=== PATIENT | male | born 1985 | race Caucasian/White ===

== ENCOUNTER 2024-02-25 18:04 | Inpatient (IN) | payer OTHER, SELFPAY ==
[2024-02-25 18:55] VITALS: BP 140/97; PULSE 115; RESP 20; TEMP 36.6; O2SAT 96
[2024-02-25 18:57] VITALS: BMI 64.6
[2024-02-25] MEDS: Albuterol Sulfate 90 MCG 8 GM INHALER 2 PUFF INHALE (19:12)
--- NOTE | 2024-02-25 19:51 | PC.ADMIT ---
Raji Montaño arrived ambulance/stretcher from [facility] at 1835. Prior to arrival a 12b was signed/dated in [facility] [place] [place] [facility]. Raji (he/him) is oriented x4. He is pleasant and cooperated with safety/skin check. His skin check was unremarkable except this nurse couldnt assess fully under his abdominal panus as he was too winded to help hold it up completely and/or lie back for assessment. (This information was passed on to receiving RN for [id number] Krueger paged and ordered leigh MDI which was coming from pharmacy. He was given MDI at 1915. He presented to [facility] for evaluation of altered mental status. He was kicked out of the [facility] and had nowhere to go and decided to lay down next to a convenience store. EMS was called. He was found with slurred speech and pinpoint pupils. At the time he reported only taking hydroxyzine and his prescribed suboxone. Tox screen was positive for cocaine, benzodiazepams and amphetamines, No ETOH. He reported that he is going through some tough things and then he started to cry. His dad is recently diagnosed with stage 4 liver cancer and he is predicted to not make it to new [place]. Raji has passive SI, no plan currently and states he can seek staff if this changes. Raji has bilateral nonpitting edema and is malodorous likely due to his body habitus. He was oriented to room and routine, placed dinner order and he was settled in his room. Hospitalist consult order placed. He is being monitored with 15 minute safety checks.
[2024-02-25] MEDS: lamoTRIgine 100 MG TABLET 200 MG PO (23:51)
[2024-02-25] MEDS: Buprenorphine/Naloxone 8/2 mg FILM 1 FILM SUBLINGUAL (23:51)
[2024-02-25] MEDS: Gabapentin 400 MG CAPSULE 800 MG PO (23:52)
[2024-02-25] MEDS: QUEtiapine Fumarate 300 MG TABLET PO (23:53)
[2024-02-25 23:55] VITALS: BP 140/97
[2024-02-25] MEDS: Prazosin HCL 5 MG CAPSULE 10 MG PO (23:55)
[2024-02-26 07:51] VITALS: BP 146/80; PULSE 89; RESP 16; TEMP 36.4; O2SAT 94
[2024-02-26 08:43] LABS: Estimated Average Glucose 105 mg/dL; Hemoglobin A1c % 5.3 % (<6.0)
[2024-02-26 08:57] LABS: Cholesterol 131 mg/dL (<200); HDL Cholesterol 38 mg/dL (>40); LDL Cholesterol Calculated 77 mg/dL (<100); Triglycerides 81 mg/dL (<150)
[2024-02-26 09:12] LABS: Free T4 (Free Thyroxine) 0.95 ng/dL (0.71-1.85); Thyroid Stimulating Hormone 2.67 uIU/mL (0.32-4.0)
[2024-02-26] MEDS: Omeprazole 40 MG CAPSULE.DR PO ×2 (09:19→17:23)
[2024-02-26] MEDS: Buprenorphine/Naloxone 8/2 mg FILM 1 FILM BUCCAL ×3 (09:20→20:59)
[2024-02-26 09:25] LABS: Folate 10.7 ng/mL (> or = 4.0); Vitamin B12 558 pg/mL (200-900)
[2024-02-26] MEDS: Gabapentin 600 MG TABLET 800 MG PO ×3 (10:24→20:51)
[2024-02-26 12:26] VITALS: BMI 64.6
[2024-02-26] MEDS: Dextroamphetamine/Amphetamine XR 10 MG CAP.ER.24H 20 MG PO (14:03)
[2024-02-26] MEDS: Amphetamine Mixed Salts 10 MG TABLET PO (14:04)
[2024-02-26] MEDS: buPROPion HCl XL 300 MG TAB.ER.24H PO (14:04)
[2024-02-26] MEDS: DULoxetine HCl 30 MG CAPSULE.DR PO ×2 (14:05→20:53)
[2024-02-26] MEDS: hydrOXYzine HCL 50 MG TABLET 100 MG PO ×2 (14:52→20:57)
[2024-02-26] MEDS: Ibuprofen 600 MG TABLET PO ×2 (14:52→20:53)
--- NOTE | 2024-02-26 15:50 | HO.PM.IMCN ---
History of Present Illness Data of Consult Service Date: 02/26/24 Primary Care Provider: Unknown Physician HPI Reason for consult: Admission H&P Pt is a 38-year-old male with a PMH significant for mild intermittent asthma, hepatitis C, peripheral neuropathy, GERD chronic lower back and leg pain, chronic lower leg edema, polysubstance use disorder on Suboxone, obesity class 3, and mood disorder? who is admitted to M5 psychiatry unit for increasing depression with SI. Patient initially presented to the ED for evaluation of possible altered mental status. Patient had been kicked out of the home program and had no route to go so apparently laid down on the ground next to convenience store. EMS noted him to have pinpoint pupils and slurred speech. Medical consult for admission H&P. ?Patient complains of chronic lower back and bilateral lower leg pain. States pain in his right knee is especially painful, seemingly worse than prior. States there is a ?crunching? sound when he walks. Denies chest pain/pressure, palpitations. No shortness a breath. Denies fever, chills, nausea, vomiting, abdominal pain. No headache, acute vision changes, lightheadedness, or dizziness. Reports has not yet been treated for hepatitis-C. Has a history of IVDU, last used in May. Labs reviewed, grossly unremarkable. Vital signs stable. Tox screen at [facility] positive for cocaine, benzos, and amphetamine. Review of Systems Review of Systems: Chronic lower back and leg pain Worsening right knee pain [facility] Medical History (Updated 02/26/24 @ 19:04 by ERIN Pittman) GERD (gastroesophageal reflux disease) Mild intermittent asthma Obesity, Class III, BMI 40-49.9 (morbid obesity) Chronic lower back pain Hepatitis C Polysubstance use disorder ADHD Bipolar disorder Social History Household Members: None Housing: Homeless Do you presently have visiting nurse or other home services: No Patient Tobacco Use Status: Former Tobacco user Tobacco use type: Cigarette Years Smoked: 17 years Smoked in Last 30 Days: No e-Cigarette/Vaping Use: Currently Using Frequency of e-Cigarette/Vaping Use: daily Patient Interested in Nicotine Replacement: Yes Patient Given Instructions on How to Stop Smoking: Yes Date Education Initiated: 02/25/24 Second Hand Smoke Exposure: Yes Use of substances other than those prescribed or required for medical reasons: Yes Substance Use Type: Crack/Cocaine and Opiates Last Used Substance: Unknown Last Used Substance Other:: Aug 2022 Currently Displaying Signs/Symptoms of Drug Intoxication Withdrawal: No Any prior treatment program specific to substance use: Yes (Subaxone) Have you been hit, kicked, punched, or otherwise hurt by someone within the past year? If so, by whom?: No Do you feel safe in your current relationship?: Yes Is there a partner from a previous relationship who is making you feel unsafe now?: No Are you made to feel afraid or neglected: No Advance Directives: No Advance Directives Information Provided: Yes Do you have thoughts of harming others: None Do you have a plan to hurt others: No Plan Recently lost weight without trying: No Poor oral hygiene: No Meds Allergies Allergy/AdvReac Type Severity Reaction Status Date / Time haloperidol [From Haldol] Allergy Unknown Verified 02/25/24 19:01 trazodone AdvReac restless Verified 02/26/24 17:14 leg syndrome Active Medications: Current Medications Acetaminophen (Acetaminophen 325 Mg Tablet) 650 mg PO Q6H PRN PRN Reason: Headache/Pain Mild Scale (1-3) Al Hydroxide/Mg Hydroxide (Magnesium Hydrox/Alum Hydrox 30 Ml Oral.Susp) 30 ml PO Q6H PRN PRN Reason: Heartburn/Nausea Albuterol Sulfate (Albuterol Sulfate 90 Mcg 8 Gm Inhaler) 2 puff INHALE RQ4H PRN PRN Reason: Shortness of Breath Last Admin: 02/25/24 19:12 Dose: 2 puff Amphetamine/Dextroamphetamine (Dextroamphetamine/Amphetamine Xr 10 Mg Cap.Er.24h) 20 mg PO DAILY [facility] Last Admin: 02/26/24 14:03 Dose: 20 mg Amphetamine/Dextroamphetamine (Amphetamine Mixed Salts 10 Mg Tablet) 10 mg PO DAILY [facility] Last Admin: 02/26/24 14:04 Dose: 10 mg Buprenorphine/Naloxone (Buprenorphine/Naloxone 8/2 Mg Film) 1 film BUCCAL TID [facility] Last Admin: 02/26/24 14:55 Dose: 1 film Bupropion HCl (Bupropion Hcl Xl 300 Mg Tab.Er.24h) 300 mg PO DAILY [facility] Last Admin: 02/26/24 14:04 Dose: 300 mg Clonidine HCl (Clonidine Hcl 0.2 Mg Tablet) 0.2 mg PO TID PRN; Protocol PRN Reason: anxiety Cyclobenzaprine HCl (Cyclobenzaprine Hcl 10 Mg Tablet) 10 mg PO TID PRN PRN Reason: Muscle Spasm Duloxetine HCl (Duloxetine Hcl 30 Mg Capsule.Dr) 30 mg PO BID [facility] Last Admin: 02/26/24 14:05 Dose: 30 mg Gabapentin (Gabapentin 600 Mg Tablet) 800 mg PO TID [facility] Last Admin: 02/26/24 15:03 Dose: 800 mg Hydroxyzine HCl (Hydroxyzine Hcl 50 Mg Tablet) 100 mg PO TID [facility] Last Admin: 02/26/24 14:52 Dose: 100 mg Ibuprofen (Ibuprofen 600 Mg Tablet) 600 mg PO TID [facility] Last Admin: 02/26/24 14:52 Dose: 600 mg Lamotrigine (Lamotrigine 100 Mg Tablet) 200 mg PO BEDTIME [facility] Last Admin: 02/25/24 23:51 Dose: 200 mg Magnesium Hydroxide (Milk Of Magnesia 30 Ml Oral.Susp) 30 ml PO DAILY PRN PRN Reason: Constipation Nicotine (Nicotine 21 Mg Patch.Td24) 21 mg TRANSDERMA DAILY PRN PRN Reason: Nicotine Cravings Nicotine Polacrilex (Nicotine Polacrilex 2 Mg Gum) 4 mg BUCCAL Q2H PRN PRN Reason: Nicotine Cravings Omeprazole (Omeprazole 40 Mg Capsule.Dr) 40 mg PO BID@0630,1630 [facility] Prazosin HCl (Prazosin Hcl 5 Mg Capsule) 10 mg PO BEDTIME [facility]; Protocol Last Admin: 02/25/24 23:55 Dose: 10 mg Quetiapine Fumarate (Quetiapine Fumarate 300 Mg Tablet) 300 mg PO BEDTIME [facility] Last Admin: 02/25/24 23:53 Dose: 300 mg Trazodone HCl (Trazodone Hcl 50 Mg Tablet) 50 mg PO BEDTIME MRX1 PRN PRN Reason: Insomnia Home Medications ?Medication ?Instructions ?Recorded ?Confirmed ?Last Taken ?Type buprenorphine 8 mg-naloxone 2 mg 1 film buccal TID 02/25/24 02/25/24 Unknown History sublingual film cyclobenzaprine 10 mg tablet 10 mg PO BID 02/25/24 02/25/24 Unknown History cyclobenzaprine 10 mg tablet 10 mg PO TID PRN Muscle Spasm 02/25/24 02/25/24 Unknown History gabapentin 800 mg tablet 800 mg PO TID 02/25/24 02/25/24 Unknown History hydroxyzine HCl 50 mg tablet 100 mg PO TID PRN Anxiety 02/25/24 02/25/24 Unknown History lamotrigine 100 mg tablet 200 mg PO BEDTIME 02/25/24 02/25/24 Unknown History omeprazole 40 mg capsule,delayed 40 mg PO DAILY 02/25/24 02/25/24 Unknown History release prazosin 5 mg capsule 10 mg PO BEDTIME 02/25/24 02/25/24 Unknown History quetiapine 300 mg tablet 300 mg PO BEDTIME 02/25/24 02/25/24 Unknown History Physical Exam Vital Signs and Narrative: Vital Signs: Last Vital Signs Temp 97.5 F 02/26/24 07:51 Pulse 89 02/26/24 07:51 Resp 16 02/26/24 07:51 BP 146/80 H 02/26/24 07:51 Pulse Ox 94 02/26/24 07:51 O2 Del Method Room Air 02/26/24 07:51 BMI result Body Mass Index 64.6 General: AOx3, no acute distress Resp: Mild expiratory wheezing CVS: S1, S2, RRR GI: +BS, NT, no distention, obese Skin: Warm, dry Neuro: Cranial nerves II-XII grossly intact bilaterally. Motor grossly intact bilaterally Extremities: Non-pitting edema. Chronic venous stasis dermatitis changes bilaterally. Psych: Appropriate affect Results Labs Labs: Laboratory Results - last 24 hr 02/26/24 08:25 Estimat Average Glucose 105 Hemoglobin A1c % 5.3 Magnesium 2.0 Triglycerides 81 Cholesterol 131 LDL Cholesterol, Calc 77 HDL Cholesterol 38 L Vitamin B12 558 Folate 10.7 TSH 2.67 Free T4 0.95 Assessment and Plan (1) Medical clearance for psychiatric admission: Status: Acute Plan Pt is a 38-year-old male with a PMH significant for mild intermittent asthma, hepatitis C, peripheral neuropathy, GERD chronic lower back and leg pain, chronic lower leg edema, polysubstance use disorder on Suboxone, obesity class 3, and mood disorder? who is admitted to M5 psychiatry unit for increasing depression with SI. Patient initially presented to the ED for evaluation of possible altered mental status. Patient had been kicked out of the home program and had no route to go so apparently laid down on the ground next to convenience store. EMS noted him to have pinpoint pupils and slurred speech. Medical consult for admission H&P. Mood disorder Plan as per Psychiatry Polysubstance use disorder History of IVDU, last injected in May Tox screen positive for cocaine, benzos, and amphetamines Continue Suboxone Plan as per Psychiatry Chronic lower back and knee pain Continue cyclobenzaprine, ibuprofen, and Tylenol Should follow up outpatient with Orthopedics for worsening right knee pain Hepatitis-C Currently untreated Follow up outpatient GERD Continue omeprazole Obesity class III Encourage weight loss Thank you for allowing us to participate in the care of this patient. Signing off at this time. Please re-consult if any acute complaints or issues arise.
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
[2024-02-26 20:00] VITALS: BP 143/88; PULSE 102; RESP 16; TEMP 36.1; O2SAT 96
[2024-02-26] MEDS: lamoTRIgine 100 MG TABLET 200 MG PO (20:49)
[2024-02-26 20:52] VITALS: BP 143/88
[2024-02-26] MEDS: Prazosin HCL 5 MG CAPSULE 10 MG PO (20:52)
[2024-02-26] MEDS: QUEtiapine Fumarate 300 MG TABLET PO (21:36)
[2024-02-27] MEDS: Acetaminophen 325 MG TABLET 650 MG PO ×3 (04:24→23:31)
[2024-02-27] MEDS: Cyclobenzaprine HCl 10 MG TABLET PO ×3 (04:24→23:31)
[2024-02-27] MEDS: Omeprazole 40 MG CAPSULE.DR PO ×2 (06:08→15:54)
[2024-02-27 08:00] VITALS: BP 155/91; PULSE 86; RESP 20; TEMP 36.4; O2SAT 95
[2024-02-27] MEDS: buPROPion HCl XL 300 MG TAB.ER.24H PO (09:05)
[2024-02-27] MEDS: Dextroamphetamine/Amphetamine XR 10 MG CAP.ER.24H 20 MG PO (09:05)
[2024-02-27] MEDS: Buprenorphine/Naloxone 8/2 mg FILM 1 FILM BUCCAL ×3 (09:05→22:54)
[2024-02-27] MEDS: Gabapentin 600 MG TABLET 800 MG PO ×2 (09:05→15:25)
[2024-02-27] MEDS: DULoxetine HCl 30 MG CAPSULE.DR PO ×2 (09:05→22:48)
[2024-02-27] MEDS: Ibuprofen 600 MG TABLET PO ×3 (09:06→22:50)
[2024-02-27] MEDS: hydrOXYzine HCL 50 MG TABLET 100 MG PO ×3 (09:06→22:47)
--- NOTE | 2024-02-27 11:49 | PC.NURSE ---
Pt met with the [place] [employer], [employer] and this verse writer off the unit to fill out the paperwork needed for the sex offender registry. Paperwork completed without incident.
[2024-02-27] MEDS: Amphetamine Mixed Salts 10 MG TABLET PO (15:53)
--- NOTE | 2024-02-27 16:33 | P.PNPSI_ITS ---
Subjective Subjective Date of Service: 02/27/24 Reason For Visit: F329, F14.90, F10.99 Subjective Notes: Section 12B Healthcare Proxy: No Guardianship: No Medical Problems Affecting Mental Status: No Interim History: Pt requested to register with HPD today his offender status which he was able to do with team support. I want to do things right, for myself and get on track. I hope I will not be judged here. Discussed [employer] trial- he is willing to look at information. Settling in milieu, This is different from some of the other hospitals I have been admitted to. Discussed OP referral for R knee injuries. Medication Compliance: Yes Side effects from medications: No Attending Groups: Yes Review of Systems Acute medical concerns: No Medical Review of Systems: unchanged Review of Systems Review of Systems knee pain Mental Status Exam Mental Status Exam Patient Appearance: Fatigued Patient Orientation: Person, Place, Time and Situation Level of Consciousness: Alert Patient Behavior: Appropriate, Talkative, Cooperative and Good Eye Contact Mood Description: Depressed Affect Description: Flat Patient Cognition Impaired: No Ability to Follow Directions: Good Speech Pattern: Spontaneous Speech Memory Description: Intact Hallucinations: Auditory Delusions: Paranoid Ideation Perceptual Disturbances: Depersonalization and Derealization Thought Process: Rumination Thought Content: positive for Perseveration, positive for Suicidal Ideation and positive for Homicidal Ideation Depressive Symptoms: Increased Irritability, Hopelessness, Unhappiness and Low Self Esteem Abnormal Motor Activity Signs and Symptoms: Restlessness Judgement: Fair Diagnostics Vital Signs (24Hr): Vital Signs - 24 hr 02/26/24 20:00 02/26/24 20:52 02/27/24 08:00 Temperature 96.9 F 97.5 F Pulse Rate 102 H 86 Respiratory Rate 16 20 Blood Pressure 143/88 H 143/88 H 155/91 H Pulse Oximetry 96 95 Oxygen Delivery Method Room Air Room Air BMI result Body Mass Index 64.6 Labs Labs: Laboratory Results - last 48 hr 02/26/24 08:25 Estimat Average Glucose 105 Hemoglobin A1c % 5.3 Magnesium 2.0 Triglycerides 81 Cholesterol 131 LDL Cholesterol, Calc 77 HDL Cholesterol 38 L Vitamin B12 558 Folate 10.7 TSH 2.67 Free T4 0.95 Medications Medications Current Medications Acetaminophen (Acetaminophen 325 Mg Tablet) 650 mg PO Q6H PRN PRN Reason: Headache/Pain Mild Scale (1-3) Last Admin: 02/27/24 12:03 Dose: 650 mg Al Hydroxide/Mg Hydroxide (Magnesium Hydrox/Alum Hydrox 30 Ml Oral.Susp) 30 ml PO Q6H PRN PRN Reason: Heartburn/Nausea Albuterol Sulfate (Albuterol Sulfate 90 Mcg 8 Gm Inhaler) 2 puff INHALE RQ4H PRN PRN Reason: Shortness of Breath Last Admin: 02/25/24 19:12 Dose: 2 puff Amphetamine/Dextroamphetamine (Dextroamphetamine/Amphetamine Xr 10 Mg Cap.Er.24h) 20 mg PO DAILY [facility] Last Admin: 02/27/24 09:05 Dose: 20 mg Amphetamine/Dextroamphetamine (Amphetamine Mixed Salts 10 Mg Tablet) 10 mg PO DAILY@1500 [facility] Last Admin: 02/27/24 15:53 Dose: 10 mg Buprenorphine/Naloxone (Buprenorphine/Naloxone 8/2 Mg Film) 1 film BUCCAL TID [facility] Last Admin: 02/27/24 15:25 Dose: 1 film Bupropion HCl (Bupropion Hcl Xl 300 Mg Tab.Er.24h) 300 mg PO DAILY [facility] Last Admin: 02/27/24 09:05 Dose: 300 mg Clonidine HCl (Clonidine Hcl 0.2 Mg Tablet) 0.2 mg PO TID PRN; Protocol PRN Reason: anxiety Cyclobenzaprine HCl (Cyclobenzaprine Hcl 10 Mg Tablet) 10 mg PO TID PRN PRN Reason: Muscle Spasm Last Admin: 02/27/24 12:03 Dose: 10 mg Duloxetine HCl (Duloxetine Hcl 30 Mg Capsule.Dr) 30 mg PO BID [facility] Last Admin: 02/27/24 09:05 Dose: 30 mg Gabapentin (Gabapentin 600 Mg Tablet) 800 mg PO TID [facility] Last Admin: 02/27/24 15:25 Dose: 800 mg Hydroxyzine HCl (Hydroxyzine Hcl 50 Mg Tablet) 100 mg PO TID [facility] Last Admin: 02/27/24 15:26 Dose: 100 mg Ibuprofen (Ibuprofen 600 Mg Tablet) 600 mg PO TID [facility] Last Admin: 02/27/24 15:27 Dose: 600 mg Lamotrigine (Lamotrigine 100 Mg Tablet) 200 mg PO BEDTIME [facility] Last Admin: 02/26/24 20:49 Dose: 200 mg Magnesium Hydroxide (Milk Of Magnesia 30 Ml Oral.Susp) 30 ml PO DAILY PRN PRN Reason: Constipation Nicotine (Nicotine 21 Mg Patch.Td24) 21 mg TRANSDERMA DAILY PRN PRN Reason: Nicotine Cravings Nicotine Polacrilex (Nicotine Polacrilex 2 Mg Gum) 4 mg BUCCAL Q2H PRN PRN Reason: Nicotine Cravings Omeprazole (Omeprazole 40 Mg Capsule.Dr) 40 mg PO BID@0630,1630 [facility] Last Admin: 02/27/24 15:54 Dose: 40 mg Prazosin HCl (Prazosin Hcl 5 Mg Capsule) 10 mg PO BEDTIME [facility]; Protocol Last Admin: 02/26/24 20:52 Dose: 10 mg Quetiapine Fumarate (Quetiapine Fumarate 300 Mg Tablet) 300 mg PO BEDTIME [facility] Last Admin: 02/26/24 21:36 Dose: 300 mg Allergies Allergies Allergy/AdvReac Type Severity Reaction Status Date / Time haloperidol [From Haldol] Allergy Unknown Verified 02/25/24 19:01 trazodone AdvReac restless Verified 02/26/24 17:14 leg syndrome Assessment & Plan Assessment & Plan (1) Polysubstance use disorder: Status: Acute Code(s): F19.90 - Other psychoactive substance use, unspecified, uncomplicated (2) Bipolar disorder: Status: Acute Code(s): F31.9 - Bipolar disorder, unspecified (3) ADHD: Status: Acute Code(s): F90.9 - Attention-deficit hyperactivity disorder, unspecified type Plan 02/27/24 Continue tx Given information on Vraylar for review. Reason for continued inpatient stay Substantial Risk for: rapid decompensation Time Spent With Patient Time: Total time managing care of this patient today ____ minutes.
[2024-02-27 20:00] VITALS: BP 130/58; PULSE 96; TEMP 36.5; O2SAT 96
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
[2024-02-27] MEDS: QUEtiapine Fumarate 300 MG TABLET PO (22:48)
[2024-02-27] MEDS: Prazosin HCL 5 MG CAPSULE 10 MG PO (22:49)
[2024-02-27] MEDS: lamoTRIgine 100 MG TABLET 200 MG PO (22:51)
[2024-02-27] MEDS: Gabapentin 400 MG CAPSULE 800 MG PO (22:58)
[2024-02-27] MEDS: Albuterol Sulfate 90 MCG 8 GM INHALER 2 PUFF INHALE (23:58)
[2024-02-28] MEDS: Cyclobenzaprine HCl 10 MG TABLET PO ×3 (04:07→22:56)
[2024-02-28] MEDS: Albuterol Sulfate 90 MCG 8 GM INHALER 2 PUFF INHALE (04:08)
[2024-02-28] MEDS: Omeprazole 40 MG CAPSULE.DR PO ×2 (07:27→16:47)
[2024-02-28 08:00] VITALS: BP 173/89; PULSE 87; RESP 18; TEMP 36.9; O2SAT 96
[2024-02-28 08:04] VITALS: BP 175/89
[2024-02-28] MEDS: hydrOXYzine HCL 50 MG TABLET 100 MG PO ×3 (08:04→21:53)
[2024-02-28] MEDS: cloNIDine HCL 0.2 MG TABLET PO ×2 (08:04→21:52)
[2024-02-28] MEDS: buPROPion HCl XL 300 MG TAB.ER.24H PO (09:13)
[2024-02-28] MEDS: Gabapentin 400 MG CAPSULE 800 MG PO ×3 (09:13→21:52)
[2024-02-28] MEDS: DULoxetine HCl 30 MG CAPSULE.DR PO ×2 (09:13→21:52)
[2024-02-28] MEDS: Dextroamphetamine/Amphetamine XR 10 MG CAP.ER.24H 20 MG PO (09:14)
[2024-02-28] MEDS: Buprenorphine/Naloxone 8/2 mg FILM 1 FILM BUCCAL ×3 (09:14→21:54)
[2024-02-28] MEDS: Ibuprofen 600 MG TABLET PO ×3 (09:14→21:52)
[2024-02-28] MEDS: Amphetamine Mixed Salts 10 MG TABLET PO (13:57)
[2024-02-28] MEDS: Acetaminophen 325 MG TABLET 650 MG PO ×2 (16:46→22:56)
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
[2024-02-28 20:00] VITALS: BP 116/78; PULSE 110; RESP 18; TEMP 36.4; O2SAT 95
[2024-02-28] MEDS: lamoTRIgine 100 MG TABLET 200 MG PO (21:52)
[2024-02-28] MEDS: QUEtiapine Fumarate 300 MG TABLET PO (21:52)
[2024-02-28] MEDS: Prazosin HCL 5 MG CAPSULE 10 MG PO (21:53)
[2024-02-29] MEDS: Albuterol Sulfate 90 MCG 8 GM INHALER 2 PUFF INHALE ×3 (00:12→23:20)
[2024-02-29] MEDS: Omeprazole 40 MG CAPSULE.DR PO ×2 (07:22→17:52)
[2024-02-29] MEDS: Dextroamphetamine/Amphetamine XR 10 MG CAP.ER.24H 20 MG PO (08:15)
[2024-02-29] MEDS: hydrOXYzine HCL 50 MG TABLET 100 MG PO ×3 (08:15→21:24)
[2024-02-29] MEDS: buPROPion HCl XL 300 MG TAB.ER.24H PO (08:16)
[2024-02-29] MEDS: Gabapentin 400 MG CAPSULE 800 MG PO ×3 (08:16→21:25)
[2024-02-29] MEDS: DULoxetine HCl 30 MG CAPSULE.DR PO ×2 (08:16→21:24)
[2024-02-29] MEDS: Ibuprofen 600 MG TABLET PO ×3 (08:16→21:26)
[2024-02-29 08:18] VITALS: BP 144/93; PULSE 94; RESP 18; TEMP 36.4; O2SAT 99
[2024-02-29] MEDS: Buprenorphine/Naloxone 8/2 mg FILM 1 FILM BUCCAL ×3 (08:33→21:24)
[2024-02-29] MEDS: Cyclobenzaprine HCl 10 MG TABLET PO ×3 (10:46→23:18)
[2024-02-29] MEDS: cloNIDine HCL 0.2 MG TABLET PO ×3 (10:46→23:17)
[2024-02-29] MEDS: Acetaminophen 325 MG TABLET 650 MG PO ×3 (10:46→23:17)
[2024-02-29 10:47] VITALS: BP 168/89; PULSE 108
[2024-02-29] MEDS: Amphetamine Mixed Salts 10 MG TABLET PO (14:06)
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
[2024-02-29 17:54] VITALS: BP 177/98; PULSE 95
[2024-02-29 20:00] VITALS: BP 130/61; PULSE 94; RESP 16; TEMP 36.4; O2SAT 95
[2024-02-29] MEDS: QUEtiapine Fumarate 300 MG TABLET PO (21:24)
[2024-02-29 21:25] VITALS: BP 130/61
[2024-02-29] MEDS: Prazosin HCL 5 MG CAPSULE 10 MG PO (21:25)
[2024-02-29] MEDS: lamoTRIgine 100 MG TABLET 200 MG PO (21:26)
[2024-02-29 23:17] VITALS: BP 139/65
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
[2024-03-01 10:40] VITALS: BP 129/76; PULSE 90; RESP 18; TEMP 36.3; O2SAT 94
[2024-03-01] MEDS: hydrOXYzine HCL 50 MG TABLET 100 MG PO ×3 (10:48→21:44)
[2024-03-01] MEDS: Buprenorphine/Naloxone 8/2 mg FILM 1 FILM BUCCAL ×3 (10:48→21:41)
[2024-03-01] MEDS: DULoxetine HCl 30 MG CAPSULE.DR PO ×2 (10:49→21:44)
[2024-03-01] MEDS: Dextroamphetamine/Amphetamine XR 10 MG CAP.ER.24H 20 MG PO (10:49)
[2024-03-01] MEDS: buPROPion HCl XL 300 MG TAB.ER.24H PO (10:50)
[2024-03-01] MEDS: Omeprazole 40 MG CAPSULE.DR PO ×2 (10:50→16:24)
[2024-03-01] MEDS: Ibuprofen 600 MG TABLET PO ×3 (10:50→21:43)
[2024-03-01] MEDS: Gabapentin 400 MG CAPSULE 800 MG PO ×3 (10:50→21:41)
[2024-03-01 14:00] VITALS: BP 141/82
[2024-03-01] MEDS: Acetaminophen 325 MG TABLET 650 MG PO ×2 (14:00→21:42)
[2024-03-01] MEDS: cloNIDine HCL 0.2 MG TABLET PO ×2 (14:00→21:42)
[2024-03-01] MEDS: Amphetamine Mixed Salts 10 MG TABLET PO (15:01)
[2024-03-01] MEDS: QUEtiapine Fumarate 50 MG TABLET PO (16:24)
--- NOTE | 2024-03-01 17:42 | PM.EVENT ---
Event Note Date of Service: 03/01/24 Event Note: 38 year old morbidly obese male with bmi >66 admitted to adult psychiatry with consult placed to hospitalist service for evaluation of bilateral lower extremity edema and erythema. The patient reports chronic edema and redness in the BLE. Does feel this has worsened since admission. Reports he was previously on torsemide 80mg am and 40mg pm but given multiple relocations, the prescription was lost. I have verified that he did receive this rx at one time (previously noted on [facility] records). Most recent labs reveal normal renal function and electrolyte levels. He denies pain the calves bilaterally. Noticed a weeping ulcer posterior LLE this morning with serous drainage. On exam, distal half of bilateral lower legs with thickened erytehmatous skin bilaterally with minimal warmth. He has several subcentimeter superficial venous ulcers bilaterally with some serous weeping but no purulent drainage. There is 2+ pitting edema bilaterally. He is afebrile. He has a chronic intermittent mild tachycardia at baseline. See photos below A/P: At this time the patient is presenting with bilateral lower extremity venous stasis dermatitis with venous ulcers. At this time there is no evidence of infection, however patient is advised that he is at risk for infection with the venous stasis and open ulcerations. He is wearing slippers and he is advised to have socks or shoes on at all time when ambulating the halls. The ulcerations are clean without purulent drainage. At this time, will request leather parts matcher to evaluate ulcerations and recommend dressings. Recommend simple bandage for the time being. No indication for antibiotics at this time. Recommend ammonium lactate to the BLE BID and compression stockings. Recommend leg elevation. Pt refuses formal low sodium diet but states he will be mindful of sodium intake. Given pt was previously on torsemide will resume but at lower dose for now, recommend 40mg daily. Check BMP in 3 days. This should help the edema and reduce risk of venous ulceration forming and there by decrease risk of infection. However, again conservative measures with compression, elevation, and low sodium diet should be pursued. Will get baseline cbc as well. *Of note the patient also mentioned chronic right knee pain with crunching. No recent injury. Offered naproxen at patient request but he states he will continue with tylenol and ibuprofen. Outpt follow up recommended Ultimately weight loss efforts should be pursued which will likely help both of these chronic issues. Please monitor legs daily and notify hospitalist for any worsening erythema, warmth, purulent drainage, fevers, chills or change in clinical presentation. Signing off at this time. Time Spent With Patient Time: Total time managing care of this patient today ____ minutes.
[2024-03-01 19:32] LABS: MANUAL DIFF FLAG NO
[2024-03-01 19:34] LABS: Basophils Absolute Auto 0.1 X10*3/uL (0.0-0.2); Eosinophils Absolute Auto 0.3 X10*3/uL (0.0-0.4); Eosinophils Percent Auto 5.1 % (0-4); Hemoglobin 12.6 g/dl (14.0-18.0); Imm Gran Abs Auto 0.01 X10*3/uL (0.00-0.03); Imm Gran Pct Auto 0.2 % (0.0-0.4); Lymphocytes Absolute Auto 2.9 X10*3/uL (1.2-4.9); Lymphocytes Percent Auto 45.7 % (20-40); Mean Corpuscular HGB Conc 32.3 g/dl (31.0-36.0); Mean Corpuscular Volume 83.5 fL (80.0-98.0); Mean Platelet Volume 10.9 fL (9.4-12.4); Monocytes Absolute Auto 0.8 X10*3/uL (0.1-1.2); Monocytes Percent Auto 13.4 % (2-11); Neutrophils Absolute Auto 2.2 x10*3/uL (2.0-8.3); Neutrophils Percent Auto 34.6 % (45-73); Platelet Count 172 X10*3/uL (160-400); Red Blood Count 4.67 X10*6/uL (4.60-5.80); Red Cell Distribution Width 15.2 % (11.0-16.0); White Blood Count 6.3 X10*3/uL (4.8-10.8)
[2024-03-01 20:00] VITALS: BP 136/74; PULSE 88; RESP 18; TEMP 36.6; O2SAT 97
[2024-03-01] MEDS: Prazosin HCL 5 MG CAPSULE 10 MG PO (21:40)
[2024-03-01] MEDS: Cyclobenzaprine HCl 10 MG TABLET PO (21:41)
[2024-03-01] MEDS: QUEtiapine Fumarate 300 MG TABLET PO (21:41)
[2024-03-01] MEDS: lamoTRIgine 100 MG TABLET 200 MG PO (21:43)
[2024-03-02] MEDS: Cyclobenzaprine HCl 10 MG TABLET PO (04:41)
[2024-03-02] MEDS: cloNIDine HCL 0.2 MG TABLET PO (04:41)
[2024-03-02] MEDS: QUEtiapine Fumarate 50 MG TABLET PO (04:41)
[2024-03-02] MEDS: Omeprazole 40 MG CAPSULE.DR PO (06:50)
[2024-03-02 08:00] VITALS: BP 152/75; PULSE 71; TEMP 36.4; O2SAT 96
[2024-03-02] MEDS: Buprenorphine/Naloxone 8/2 mg FILM 1 FILM BUCCAL (09:30)
[2024-03-02 09:38] VITALS: BP 152/75
[2024-03-02] MEDS: Dextroamphetamine/Amphetamine XR 10 MG CAP.ER.24H 20 MG PO (09:38)
[2024-03-02] MEDS: buPROPion HCl XL 300 MG TAB.ER.24H PO (09:38)
[2024-03-02] MEDS: Torsemide 20 MG TABLET 40 MG PO (09:38)
[2024-03-02] MEDS: Ibuprofen 600 MG TABLET PO (09:39)
[2024-03-02] MEDS: Gabapentin 400 MG CAPSULE 800 MG PO (09:39)
[2024-03-02] MEDS: hydrOXYzine HCL 50 MG TABLET 100 MG PO (09:39)
[2024-03-02] MEDS: DULoxetine HCl 30 MG CAPSULE.DR PO (09:40)
--- NOTE | 2024-03-02 17:11 | P.DS_ITS ---
DS: Providers Provider Date of Service: 03/02/24 Date of admission: 02/25/24 18:04 Date of discharge: 03/02/24 Primary care physician: Unknown Physician Admitting clinician: Kristin Cabrera Attending physician on admission: Garrett Harris Consults: 02/25/24 19:24 Consult to Hospitalist Routine Comment: Consulting Provider: Hospitalist Reason For Exam: patient admit from [facility] 03/01/24 16:19 Consult to Hospitalist Routine Comment: Consulting Provider: Hospitalist Reason For Exam: bilat edema and erythema 03/01/24 17:36 Consult to Wound Care Routine Reason for consultation: venous ulcers ble Attending physician on discharge: Garrett Harris Discharging clinician: Kristin Cabrera DS: Diagnosis Discharge Diagnosis (1) Polysubstance use disorder: Status: Acute (2) Bipolar disorder: Status: Acute (3) ADHD: Status: Acute DS: Medications Discharge Medications Home Medications: Home Medications ?Medication ?Instructions ?Recorded ?Confirmed buprenorphine 8 mg-naloxone 2 mg 1 film buccal TID 02/25/24 02/25/24 sublingual film cyclobenzaprine 10 mg tablet 10 mg PO TID PRN Muscle Spasm 02/25/24 02/25/24 gabapentin 800 mg tablet 800 mg PO TID 02/25/24 02/25/24 hydroxyzine HCl 50 mg tablet 100 mg PO TID PRN Anxiety 02/25/24 02/25/24 lamotrigine 100 mg tablet 200 mg PO BEDTIME 02/25/24 02/25/24 prazosin 5 mg capsule 10 mg PO BEDTIME 02/25/24 02/25/24 quetiapine 300 mg tablet 300 mg PO BEDTIME 02/25/24 02/25/24 Previous Rx's ?Medication ?Instructions ?Recorded albuterol sulfate 90 mcg/actuation 2 puff inhalation RQ4H PRN 03/02/24 aerosol inhaler (Ventolin HFA) Shortness Of Breath #0 grams ammonium lactate 12 % lotion 1 appl topical BID #0 grams 03/02/24 bupropion HCl 300 mg 24 hr tablet, 300 mg PO DAILY #0 tabs 03/02/24 extended release clonidine HCl 0.2 mg tablet 0.2 mg PO TID PRN anxiety #0 tabs 03/02/24 dextroamphetamine-amphetamine 10 10 mg PO DAILY@1500 #0 tabs 03/02/24 mg tablet dextroamphetamine-amphetamine ER 20 mg (2 x 10 mg) PO DAILY #0 caps 03/02/24 10 mg 24hr capsule,extend release (Adderall XR) duloxetine 30 mg capsule,delayed 30 mg PO BID #0 caps 03/02/24 release gabapentin 400 mg capsule 800 mg (2 x 400 mg) PO TID #0 caps 03/02/24 melatonin 3 mg tablet 6 mg (2 x 3 mg) PO BEDTIME #0 tabs 03/02/24 omeprazole 40 mg capsule,delayed 40 mg PO BID@0630,1630 #0 caps 03/02/24 release quetiapine 50 mg tablet 50 mg PO Q6H PRN severe 03/02/24 anxiety/agitation #0 tabs torsemide 20 mg tablet 40 mg PO DAILY #0 tabs 03/02/24 Mental Status Exam Mental Status Exam Patient Appearance: Fatigued Patient Orientation: Person, Place, Time and Situation Level of Consciousness: Alert Patient Behavior: Appropriate, Talkative, Cooperative and Good Eye Contact Mood Description: Depressed Affect Description: Flat Patient Cognition Impaired: No Ability to Follow Directions: Good Speech Pattern: Spontaneous Speech Memory Description: Intact Data Data Completed and Pending Completed studies during hospitalization [Text1]: 02/26/24 03/01/24 08:25 19:25 WBC 6.3 RBC 4.67 Hgb 12.6 L Hct 39.0 L MCV 83.5 MCH 27.0 MCHC 32.3 RDW 15.2 Plt Count 172 MPV 10.9 Immature Gran % (Auto) 0.2 Neut % (Auto) 34.6 L Lymph % (Auto) 45.7 H Gonzales % (Auto) 13.4 H Eos % (Auto) 5.1 H Baso % (Auto) 1.0 Lymph # (Auto) 2.9 Gonzales # (Auto) 0.8 Eos # (Auto) 0.3 Baso # (Auto) 0.1 Abs Immat Gran (auto) 0.01 Absolute Neuts (auto) 2.2 Absolute Nucleated RBC 0.000 Nucleated RBC % (auto) 0.0 Estimat Average Glucose 105 Hemoglobin A1c % 5.3 Magnesium 2.0 Triglycerides 81 Cholesterol 131 LDL Cholesterol, Calc 77 HDL Cholesterol 38 L Vitamin B12 558 Folate 10.7 TSH 2.67 Free T4 0.95 DS: Summary Hospital Course Hospital Course: Admission to adult psychiatry for exacerbation of bipolar disorder, ADHD, Polysubstance use. Pt was precipitously discharged from [facility], relapsed with SI. Medications were evaluated and titrated. Pt was offered full milieu support. Pt was unable to connect in a positive way in the milieu-targeting peers, vaping on the unit. As a result he was administratively discharged. He declined prescriptions and declined contact with family to add supportive resources upon discharge. Status at Discharge Functional status at discharge: independent ambulation Overall status at discharge: patient is progressing back to baseline Time Spent with Patient Time attestation: Total time managing care of this patient today ____ minutes. Time spent: Less than 30 minutes Discharge Plan Discharge Anticipated Discharge Date/Time: 03/02/24 12:00 Patient Disposition: Xfer Other Discharge Diagnosis: Polysubstance Use Disorder ADHD Bipolar Disorder Referrals: [facility] for Psychiatry and Therapy Appts [Other] - 3-5 Days (M-F - 8-8 Sat 9-5) [facility] Open Access Walk-In for Psychiatry and Therapy [Other] - 1 Week (M-F 10-12pm) [facility] [Other] - 1 Day [facility] [Other] - 3-5 Days (9-3pm) [facility] [Other] - 1 Week [facility] [Other] - 1 Week Physician,Unknown J [Primary Care Provider] - 1 Week Discharge Medications: New torsemide 20 mg Tablet 40 mg PO DAILY Qty: 0 0RF Protocol: Hold for SBP< HOLD for SBP < : 90 ammonium lactate 12 % Lotion 1 appl topical BID Qty: 0 0RF Protocol: Apply to: Apply to: ble dextroamphetamine-amphetamine 10 mg Tablet 10 mg PO DAILY@1500 Qty: 0 0RF Rx Instructions: Partial Fill upon patient request. gabapentin 400 mg Capsule 800 mg PO TID Qty: 0 0RF melatonin 3 mg Tablet 6 mg PO BEDTIME Qty: 0 0RF omeprazole 40 mg Capsule,Delayed Release(Dr/Ec) 40 mg PO BID@0630,1630 Qty: 0 0RF clonidine HCl 0.2 mg Tablet 0.2 mg PO TID PRN (Reason: anxiety) Qty: 0 0RF Protocol: Hold for SBP< HOLD for SBP < : 90 dextroamphetamine-amphetamine [Adderall XR] 10 mg Capsule,Extended Release 24hr 20 mg PO DAILY Qty: 0 0RF Rx Instructions: Partial Fill upon patient request. albuterol sulfate [Ventolin HFA] 90 mcg/actuation Hfa Aerosol Inhaler 2 puff inhalation RQ4H PRN (Reason: Shortness Of Breath) Qty: 0 0RF bupropion HCl 300 mg Tablet Extended Release 24 Hr 300 mg PO DAILY Qty: 0 0RF duloxetine 30 mg Capsule,Delayed Release(Dr/Ec) 30 mg PO BID Qty: 0 0RF quetiapine 50 mg Tablet 50 mg PO Q6H PRN (Reason: severe anxiety/agitation) Qty: 0 0RF Continued buprenorphine-naloxone 8-2 mg Film 1 film BUCCAL TID quetiapine 300 mg Tablet 300 mg PO BEDTIME hydroxyzine HCl 50 mg Tablet 100 mg PO TID PRN (Reason: Anxiety) prazosin 5 mg Capsule 10 mg PO BEDTIME lamotrigine 100 mg Tablet 200 mg PO BEDTIME cyclobenzaprine 10 mg Tablet 10 mg PO TID PRN (Reason: Muscle Spasm) gabapentin 800 mg Tablet 800 mg PO TID Discontinued cyclobenzaprine 10 mg Tablet 10 mg PO BID omeprazole 40 mg Capsule,Delayed Release(Dr/Ec) 40 mg PO DAILY Discharge Orders: Discharge Order (Routine); Ordered 03/02/24 Ordered By: Kristin Cabrera Diet: Advance to usual diet Activity on Discharge: As tolerated Stand Alone Forms: Patient Portal Discharge page, Community Support Print Language: Icelandic Care Plan Goals: Sobriety Mood and Behavioral Stabilization Health Concerns: Sobriety Mood and Behavioral Stabilization Plan of Treatment: Administrative Discharge- Team reports pt found with vaping device on the unit and has been targeting another peer who is acutely ill at this time. Pt will make follow up treatment choices independently post discharge. Assessment: Administrative Discharge per team. Pt declines prescriptions Pt declines team to contact family to discuss further planning. Discharge Date/Time: 03/02/24 12:00
== END 2024-03-02 12:00 | disposition other institution (70) | DRG 753 ==
PROVIDERS: Physician Assistant; Admitting Provider Psychiatry & Neurology Psychiatry; Visit Provider Clinical Nurse Specialist Psychiatric/Mental Health, Adult
DX: F31.9 Bipolar disorder, unspecified (principal); R45.851 Suicidal ideations; L97.811 Non-pressure chronic ulcer of other part of right lower leg limited to breakdown of skin; Z68.44 Body mass index [BMI] 60.0-69.9, adult; J45.20 Mild intermittent asthma, uncomplicated; K21.9 Gastro-esophageal reflux disease without esophagitis; I87.2 Venous insufficiency (chronic) (peripheral); L97.821 Non-pressure chronic ulcer of other part of left lower leg limited to breakdown of skin; G62.9 Polyneuropathy, unspecified; E66.01 Morbid (severe) obesity due to excess calories; F11.20 Opioid dependence, uncomplicated; B19.20 Unspecified viral hepatitis C without hepatic coma; F90.9 Attention-deficit hyperactivity disorder, unspecified type; F19.90 Other psychoactive substance use, unspecified, uncomplicated; Z87.891 Personal history of nicotine dependence; Z79.899 Other long term (current) drug therapy
CPT/HCPCS: 36415; 80061; 82607; 82746; 83036; 83735; 84439; 84443; 85025

== ENCOUNTER → 2024-02-25 18:04 | Outpatient (BNV) | payer OTHER, SELFPAY | PROVIDERS: Admitting Provider Psychiatry & Neurology Psychiatry; Visit Provider Student in an Organized Health Care Education/Training Program | DX: Z02.2 Encounter for examination for admission to residential institution (principal) | CPT/HCPCS: 99429; 99499 ==

== ENCOUNTER → 2024-02-25 18:04 | Outpatient (BNV) | payer OTHER, SELFPAY | PROVIDERS: Admitting Provider Psychiatry & Neurology Psychiatry; Visit Provider Clinical Nurse Specialist Psychiatric/Mental Health, Adult | DX: F31.4 Bipolar disorder, current episode depressed, severe, without psychotic features (principal); F19.90 Other psychoactive substance use, unspecified, uncomplicated; F90.9 Attention-deficit hyperactivity disorder, unspecified type | CPT/HCPCS: 90792; 99231; 99232; 99238 ==

== ENCOUNTER 2024-05-01 12:23 | Inpatient (IN) | payer OTHER, SELFPAY ==
[2024-05-01 13:00] VITALS: BMI 69.2
[2024-05-01 13:02] VITALS: BP 133/96; PULSE 104; RESP 18; TEMP 37.1; O2SAT 96
[2024-05-01] MEDS: Buprenorphine/Naloxone 8/2 mg FILM 1 FILM BUCCAL ×2 (15:06→22:00)
[2024-05-01] MEDS: Amphetamine Mixed Salts 10 MG TABLET PO (15:06)
[2024-05-01 15:50] VITALS: BP 146/78
[2024-05-01] MEDS: Gabapentin 400 MG CAPSULE 800 MG PO ×2 (15:50→21:33)
[2024-05-01] MEDS: Torsemide 20 MG TABLET 40 MG PO (15:50)
--- NOTE | 2024-05-01 16:16 | PC.ADMIT ---
Nursing admission note: Patient 39 year old male DX: Unspecified BiPolar Disorder. Referred for admission by [facility]. Signed conditional voluntary for admission. Patient self presented to [facility] with complaint of suicidal ideation with several plans. Patient reports he was recently admitted to [facility] for suicidal ideation, discharged to [facility] Patient reported he was discharged from step down about 2 weeks ago, and did not feel ready. Patient engaged easily. Calm and cooperative with admission process. Presented with good eye contact, casual clothing, disheveled. Cooperative with skin check. Patient A+O x4. Reports mood continues depressed, with + SI, plan, means stating he has access to firearms , thoughts to jump off bridge, denies intent at this time. Reports +HI toward doctors that have not been treating my father . Patient identifies multiple stressors contributing to SI, including father with metastatic CA, mother with Alzheimers, recent homelessness, that is borderline homeless and brother who has been care taking his parents stating it has all affected his support network. No reported perceptual disturbances, no overt psychosis or expressed delusions. Thoughts linear and organized, focused on interview. Speech is normal in rate, tone, prosody. States he can get loud at times because he talks loud . Patient reports poor sleep, difficulty falling and maintaining sleep. Denies appetite disturbances. Currently on probation. TOX screen + Buprenorphine. Reports drinking prior to admission although does not drink regularly. History of substance use with prior detox and recovery admissions. Medical history includes Asthma, history of Hep C,morbid obesity, sinus infection currently being treated with AB. Lower legs red, with edema. Reports chronic venous stasis. Reports recent fall due to walking on wet floor. Allergy to Haldol and Trazodone. Currently non smoker, denies NRT at this time. Patient oriented to unit, placed on unit safety checks. See nursing assessment, crisis evaluation for complete details.
[2024-05-01] MEDS: metFORMIN HCl 500 MG TABLET PO (17:06)
[2024-05-01] MEDS: Albuterol Sulfate 90 MCG 8 GM INHALER 2 PUFF INHALE ×2 (17:06→22:48)
[2024-05-01 17:22] LABS: Creatinine Clr Calc Pharmacy 214.2; Estimated Glomerular Filt Rate > 60
[2024-05-01] MEDS: Omeprazole 40 MG CAPSULE.DR PO (17:28)
[2024-05-01] MEDS: LORazepam 1 MG TABLET PO (18:23)
[2024-05-01 18:25] VITALS: BP 145/85
[2024-05-01] MEDS: cloNIDine HCL 0.2 MG TABLET PO (18:25)
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
[2024-05-01 21:30] VITALS: BP 137/79; PULSE 102; RESP 18; TEMP 36.9; O2SAT 97
[2024-05-01] MEDS: Prazosin HCL 5 MG CAPSULE 10 MG PO (21:33)
[2024-05-01] MEDS: lamoTRIgine 100 MG TABLET 300 MG PO (21:34)
[2024-05-01] MEDS: QUEtiapine Fumarate 400 MG TABLET PO (21:36)
[2024-05-01] MEDS: Ibuprofen 600 MG TABLET PO (21:39)
[2024-05-01] MEDS: Cyclobenzaprine HCl 10 MG TABLET PO (21:39)
[2024-05-01] MEDS: Trolamine Salicylate 10 % Cream 85 GM TUBE 1 APPL TOPICAL (22:39)
--- OUTSIDE RECORDS SUMMARY | 2024-05-02 00:38 | XMS_ITS | Continuity of Care Document ---
Author Organization [facility] ter Address [address] [place] [address]- Care Team Providers Care Kiln Car Unloader Name Role Phone Not on Staff, PCP Primary Care Physician Unavail able Encounter [facility] Date(s): 10/13/23 - 11/26/[address] [address]- Attending Physician: Not on Staff, Referring MD Admitting Physician: Not on Staff, Referring MD Referring Physician: Not on Staff, Referring MD Patient Care team information Care Team Personnel Name: Not on Staff, PCP Position: [facility] Physician (General Medicine) Member Role: PCP
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
[2024-05-02 07:30] VITALS: BP 126/64; PULSE 78; RESP 14; TEMP 36.6; O2SAT 92
[2024-05-02 08:44] VITALS: BP 126/68
[2024-05-02] MEDS: Torsemide 20 MG TABLET 40 MG PO (08:44)
[2024-05-02] MEDS: Omeprazole 40 MG CAPSULE.DR PO ×2 (08:45→16:07)
[2024-05-02] MEDS: metFORMIN HCl 500 MG TABLET PO ×2 (08:45→16:07)
[2024-05-02] MEDS: Buprenorphine/Naloxone 8/2 mg FILM 1 FILM BUCCAL ×3 (08:45→21:57)
[2024-05-02] MEDS: Gabapentin 400 MG CAPSULE 800 MG PO ×3 (08:45→22:03)
[2024-05-02] MEDS: buPROPion HCl XL 300 MG TAB.ER.24H PO (08:45)
[2024-05-02] MEDS: Dextroamphetamine/Amphetamine XR 10 MG CAP.ER.24H 20 MG PO (08:45)
[2024-05-02 09:07] LABS: Alanine Aminotransferase 152 U/L (0-40); Albumin Level 3.6 g/dL (3.5-5.0); Alkaline Phosphatase 94 U/L (39-117); Anion Gap 10 (12-20); Aspartate Amino Transferase 121 U/L (5-37); Bilirubin Total 0.4 mg/dL (0.0-1.0); Blood Urea Nitrogen 16 mg/dL (9-16); Calcium 9.9 mg/dL (8.4-10.2); Carbon Dioxide 32 mmol/L (22-29); Chloride 99 mmol/L (96-108); Cholesterol 127 mg/dL (<200); Creatinine Clr Calc Pharmacy 216.6; Estimated Glomerular Filt Rate > 60; Glucose Fasting 91 mg/dL (60-99); HDL Cholesterol 48 mg/dL (>40); LDL Cholesterol Calculated 67 mg/dL (<100); Sodium 138 mmol/L (135-145); Total Protein 7.5 g/dL (6.5-8.0); Triglycerides 63 mg/dL (<150)
[2024-05-02] MEDS: Albuterol Sulfate 90 MCG 8 GM INHALER 2 PUFF INHALE ×3 (09:08→21:01)
[2024-05-02] MEDS: Cyclobenzaprine HCl 10 MG TABLET PO ×3 (09:09→22:08)
[2024-05-02] MEDS: Ibuprofen 600 MG TABLET PO ×3 (09:09→22:07)
[2024-05-02] MEDS: LORazepam 1 MG TABLET PO ×2 (09:09→16:13)
[2024-05-02 10:56] VITALS: BP 135/60
[2024-05-02] MEDS: cloNIDine HCL 0.2 MG TABLET PO ×2 (10:56→22:07)
--- NOTE | 2024-05-02 11:15 | P.CONHOSP_ITS ---
History of Present Illness Data of Consult Service Date: 05/02/24 Primary Care Provider: Unknown Physician HPI Reason for consult: Admission H&P Pt is a 39-year-old male with a PMH significant for?mild intermittent asthma, hepatitis C, peripheral neuropathy, GERD, chronic lower back and leg pain, chronic lower leg edema, polysubstance use disorder on Suboxone, obesity class 3 w/ BMI >65, and bipolar disorder who is admitted to psychiatry unit for increasing depression and SI. Medical consult for admission H&P. Patient also states that he has been experiencing intermittent chronic sinus infections that stem from a dental abscess that he experienced early last year. Initially had dental surgery, but since then has had intermittent sinus infections?that are only temporary relieved by Augmentin. Reports has just recently completed in the past week a course of antibiotics. Also reports he has been having increasing shortness a breath and wheezing for which he has been using his albuterol inhaler once or twice a day. Currently denies fever, chills, nausea, vomiting, abdominal pain. No chest pain/pressure, palpitations. Denies headache or acute vision changes. Labs reviewed, significant for potassium of 3.0, otherwise grossly unremarkable, including no leukocytosis. CXR from [facility] negative for pneumonia. Review of Systems 2 Review of Systems: Increased shortness a breath Chronic sinus pain Chronic lower leg edema No chest pain/pressure, palpitations Denies fever, chills, nausea, vomiting, abdominal pain [facility] Medical History GERD (gastroesophageal reflux disease) Mild intermittent asthma Obesity, Class III, BMI 40-49.9 (morbid obesity) Chronic lower back pain Hepatitis C Polysubstance use disorder ADHD Bipolar disorder Social History Household Members: Other Housing: Homeless Do you presently have visiting nurse or other home services: No Patient Tobacco Use Status: Former Tobacco user Tobacco use type: Cigarette Years Smoked: 17 years Smoked in Last 30 Days: No e-Cigarette/Vaping Use: Currently Using Patient Interested in Nicotine Replacement: No Patient Given Instructions on How to Stop Smoking: Yes Date Education Initiated: 05/01/24 Second Hand Smoke Exposure: Yes Substance Use Type: Club/Warehouse Man Drugs, Crack/Cocaine, Hallucinogens, Heroin, Marijuana, Opiates, Painkillers and Prescription Drugs Substance Use Type Other:: Recovered opiate addict Last Used Substance: Just Prior to Admission Last Used Substance Other:: History of substance use Currently Displaying Signs/Symptoms of Drug Intoxication Withdrawal: No Any prior treatment program specific to substance use: Yes ([facility], detox) Have you been hit, kicked, punched, or otherwise hurt by someone within the past year? If so, by whom?: No Do you feel safe in your current relationship?: Yes Is there a partner from a previous relationship who is making you feel unsafe now?: No Are you made to feel afraid or neglected: No Spiritual Healthcare Practices: Personal belief system Advance Directives: No Advance Directives Information Provided: No Do you have thoughts of harming others: None Do you have a plan to hurt others: No Plan Recently lost weight without trying: No How much weight loss: Not applicable Eating poorly because of decreased appetite: No Nutrition screen score: 0 Nutrition Risks: No Nutritional Risk Poor oral hygiene: Yes (fair) service: No Sexual orientation: Did not discuss Meds Allergies Allergy/AdvReac Type Severity Reaction Status Date / Time haloperidol [From Haldol] Allergy Unknown Verified 02/25/24 19:01 trazodone AdvReac restless Verified 02/26/24 17:14 leg syndrome Active Medications: Current Medications Acetaminophen (Acetaminophen 325 Mg Tablet) 650 mg PO Q6H PRN PRN Reason: Headache/Pain Mild Scale (1-3) Al Hydroxide/Mg Hydroxide (Magnesium Hydrox/Alum Hydrox 30 Ml Oral.Susp) 30 ml PO Q6H PRN PRN Reason: Heartburn/Nausea Albuterol Sulfate (Albuterol Sulfate 90 Mcg 8 Gm Inhaler) 2 puff INHALE RQ4H PRN PRN Reason: Shortness Of Breath Last Admin: 05/02/24 09:08 Dose: 2 puff Amphetamine/Dextroamphetamine (Amphetamine Mixed Salts 10 Mg Tablet) 10 mg PO DAILY@1500 [facility] Last Admin: 05/01/24 15:06 Dose: 10 mg Amphetamine/Dextroamphetamine (Dextroamphetamine/Amphetamine Xr 10 Mg Cap.Er.24h) 20 mg PO DAILY [facility] Last Admin: 05/02/24 08:45 Dose: 20 mg Buprenorphine/Naloxone (Buprenorphine/Naloxone 8/2 Mg Film) 1 film BUCCAL TID [facility] Last Admin: 05/02/24 08:45 Dose: 1 film Bupropion HCl (Bupropion Hcl Xl 300 Mg Tab.Er.24h) 300 mg PO DAILY [facility] Last Admin: 05/02/24 08:45 Dose: 300 mg Clonidine HCl (Clonidine Hcl 0.2 Mg Tablet) 0.2 mg PO TID PRN; Protocol PRN Reason: anxiety Last Admin: 05/02/24 10:56 Dose: 0.2 mg Cyclobenzaprine HCl (Cyclobenzaprine Hcl 10 Mg Tablet) 10 mg PO TID PRN PRN Reason: Muscle Spasm Last Admin: 05/02/24 09:09 Dose: 10 mg Gabapentin (Gabapentin 400 Mg Capsule) 800 mg PO TID [facility] Last Admin: 05/02/24 08:45 Dose: 800 mg Hydroxyzine HCl (Hydroxyzine Hcl 25 Mg Tablet) 25 mg PO Q6H PRN PRN Reason: Anxiety Hydroxyzine HCl (Hydroxyzine Hcl 50 Mg Tablet) 100 mg PO Q8H PRN PRN Reason: anxiety/restlessness Ibuprofen (Ibuprofen 600 Mg Tablet) 600 mg PO TIDWM PRN PRN Reason: moderate pain Last Admin: 05/02/24 09:09 Dose: 600 mg Lactic Acid (Ammonium Lactate 12 % Lotion 226 Gm Bottle) 1 appl TOPICAL BID [facility]; Protocol Last Admin: 05/02/24 09:11 Dose: Not Given Lamotrigine (Lamotrigine 100 Mg Tablet) 300 mg PO BEDTIME [facility] Last Admin: 05/01/24 21:34 Dose: 300 mg Lorazepam (Lorazepam 1 Mg Tablet) 1 mg PO Q8H PRN PRN Reason: anxiety/restlessness Last Admin: 05/02/24 09:09 Dose: 1 mg Magnesium Hydroxide (Milk Of Magnesia 30 Ml Oral.Susp) 30 ml PO DAILY PRN PRN Reason: Constipation Metformin HCl (Metformin Hcl 500 Mg Tablet) 500 mg PO BIDWM [facility] Last Admin: 05/02/24 08:45 Dose: 500 mg Omeprazole (Omeprazole 40 Mg Capsule.Dr) 40 mg PO BID@0630,1630 [facility] Last Admin: 05/02/24 08:45 Dose: 40 mg Prazosin HCl (Prazosin Hcl 5 Mg Capsule) 10 mg PO BEDTIME [facility]; Protocol Last Admin: 05/01/24 21:33 Dose: 10 mg Quetiapine Fumarate (Quetiapine Fumarate 400 Mg Tablet) 400 mg PO BEDTIME [facility] Last Admin: 05/01/24 21:36 Dose: 400 mg Torsemide (Torsemide 20 Mg Tablet) 40 mg PO DAILY [facility]; Protocol Last Admin: 05/02/24 08:44 Dose: 40 mg Trolamine Salicylate (Trolamine Salicylate 10 % Cream 85 Gm Tube) 1 appl TOPICAL BID PRN; Protocol PRN Reason: Pain, Moderate(Pain Scale 4-6) Last Admin: 05/01/24 22:39 Dose: 1 appl Home Medications ?Medication ?Instructions ?Recorded ?Confirmed ?Last Taken ?Type buprenorphine 8 mg-naloxone 2 mg 1 film buccal TID 02/25/24 05/01/24 05/01/24 09:00 History sublingual film 8-2 mg cyclobenzaprine 10 mg tablet 10 mg PO TID PRN Muscle Spasm 02/25/24 05/01/24 04/30/24 15:00 History 10 mg gabapentin 800 mg tablet 800 mg PO TID 02/25/24 05/01/24 05/01/24 09:00 History 800 hydroxyzine HCl 50 mg tablet 100 mg PO TID PRN Anxiety 02/25/24 05/01/24 Unknown History lamotrigine 100 mg tablet 300 mg PO BEDTIME 02/25/24 05/01/24 04/30/24 21:00 History 300 prazosin 5 mg capsule 10 mg PO BEDTIME 02/25/24 05/01/24 04/30/24 21:00 History 10 quetiapine 300 mg tablet (Seroquel) 400 mg PO BEDTIME 02/25/24 05/01/24 04/30/24 21:00 History melatonin 3 mg tablet 9 mg PO BEDTIME 05/01/24 05/01/24 04/30/24 23:00 History quetiapine 50 mg tablet (Seroquel) 50 mg PO Q6H PRN severe 05/01/24 05/01/24 Unknown History anxiety/agitation torsemide 20 mg tablet 80 mg PO DAILY 05/01/24 05/01/24 05/01/24 09:00 History 80 Physical Exam 2 Vital Signs and Narrative: Vital Signs: Last Vital Signs Temp 97.8 F 05/02/24 07:30 Pulse 78 05/02/24 07:30 Resp 14 05/02/24 07:30 BP 135/60 05/02/24 10:56 Pulse Ox 92 05/02/24 07:30 O2 Del Method Room Air 05/02/24 07:30 BMI result Body Mass Index 69.2 General: AOx3, no acute distress Resp: CTA bilaterally CVS: S1, S2, RRR GI: +BS, NT, no distention Skin: Warm, dry Neuro: Cranial nerves II-XII grossly intact bilaterally. Motor grossly intact bilaterally Extremities: 2+ bilateral pitting edema. Chronic venous stasis dermatitis. No signs of cellulitis. As pictured below. Psych: Appropriate affect Results Labs 05/02/24 08:41 Labs: Laboratory Results - last 24 hr 05/01/24 05/02/24 16:42 08:41 Anion Gap 10 L Estim Creat Clear Calc 214.2 216.6 Estimated GFR > 60 > 60 Fasting Glucose 91 Calcium 9.9 Total Bilirubin 0.4 AST 121 H ALT 152 H Alkaline Phosphatase 94 Total Protein 7.5 Albumin 3.6 Triglycerides 63 Cholesterol 127 LDL Cholesterol, Calc 67 HDL Cholesterol 48 Assessment and Plan (1) Medical clearance for psychiatric admission: Status: Acute Plan Pt is a 39-year-old male with a PMH significant for?mild intermittent asthma, hepatitis C, peripheral neuropathy, GERD, chronic lower back and leg pain, chronic lower leg edema, polysubstance use disorder on Suboxone, obesity class 3 w/ BMI >65, and bipolar disorder who is admitted to [facility] psychiatry unit for increasing depression and SI. Medical consult for admission H&P. Mood disorder Plan as per Psychiatry Hypokalemia Review of labs shows potassium low at 3.0 Will give potassium p.o. supplementation Repeat labs tomorrow Chronic sinusitis Patient reports recurrent sinus infections every few months Apparently secondary to initial dental abscess with resultant surgery Completed course of Augmentin within the past week Follow up outpatient with ENT Chronic venous stasis dermatitis Ammonium lactate lotion Encourage ambulation Elevate feet in bed Chronic lower leg edema No indication of cellulitis Continue torsemide Asthma Not in acute exacerbation: Lungs CTA Continue home inhalers ADHD Continue Adderall Polysubstance use disorder Continue Suboxone Obesity class 3 Encourage weight loss Thank you for allowing us to participate in the care of this patient. Signing off at this time. Please re-consult if any acute complaints or issues arise.
[2024-05-02] MEDS: Potassium Chloride Packet 20 MEQ PACKET 40 MEQ PO (11:48)
--- NOTE | 2024-05-02 13:17 | P.PNPSI_ITS ---
Subjective Subjective Date of Service: 05/02/24 Reason For Visit: unspecified bipolar d/o Subjective Notes: Conditional Voluntary Interim History: I have borderline personality disorder - TElls me story about why he hates his mother in law- betrayal she did to her daugther by sec 12 her years ago - saw the pain in 's eyes PT reports meds restarted are fine- continues to think he needs termite technician hospitalization [place]cp and casemanager- which is more than many have here- suspect recurrent homelessness and substance use with threats of si behind recurrent hospitalizations and desire for termite technician- Also father in stage 4 cancer, saw wed- and still homicidal with supposed access to guns toward father's [facility] Medication Compliance: Yes Side effects from medications: No Attending Groups: Yes Review of Systems Acute medical concerns: Yes swelling in legs torosemide not written for right dose or timing so that was corrected- Medical Review of Systems: unchanged Mental Status Exam Mental Status Exam Narrative: morbidly obese male sitting on edge of chair in sensory room with marge and blanket wrapped around him Patient Appearance: Appropriate Patient Orientation: Person, Place, Time and Situation Level of Consciousness: Awake Patient Behavior: Appropriate, Talkative, Cooperative and Good Eye Contact Mood Description: Calm Affect Description: Appropriate Patient Cognition Impaired: No Speech Pattern: Clear Hallucinations: None Delusions: Not Present Thought Process: Intact and Goal Oriented Thought Content: positive for Suicidal Ideation and positive for Homicidal Ideation (reports access to fire arms won't specify) Depressive Symptoms: Increased Anxiety, Diff. Making Decisions, Muscle Tension, Increased Irritability, Difficulty Sleeping, Muscle Pain, Feelings of Worthlessness, Hopelessness and Thoughts of /Suicide Judgement: Fair Diagnostics Vital Signs (24Hr): Vital Signs - 24 hr 05/01/24 15:50 05/01/24 18:25 05/01/24 21:30 Temperature 98.4 F Pulse Rate 102 H Respiratory Rate 18 Blood Pressure 146/78 H 145/85 H 137/79 Pulse Oximetry 97 Oxygen Delivery Method Room Air 05/02/24 07:30 05/02/24 08:44 05/02/24 10:56 Temperature 97.8 F Pulse Rate 78 Respiratory Rate 14 Blood Pressure 126/64 126/68 135/60 Pulse Oximetry 92 Oxygen Delivery Method Room Air BMI result Body Mass Index 69.2 Labs 05/03/24 08:23 Labs: Laboratory Results - last 48 hr 05/01/24 05/02/24 16:42 08:41 Sodium 138 Potassium 3.0 L Chloride 99 Carbon Dioxide 32 H Anion Gap 10 L BUN 16 Creatinine 0.92 0.91 Estim Creat Clear Calc 214.2 216.6 Estimated GFR > 60 > 60 Fasting Glucose 91 Calcium 9.9 Total Bilirubin 0.4 AST 121 H ALT 152 H Alkaline Phosphatase 94 Total Protein 7.5 Albumin 3.6 Triglycerides 63 Cholesterol 127 LDL Cholesterol, Calc 67 HDL Cholesterol 48 Medications Medications Current Medications Acetaminophen (Acetaminophen 325 Mg Tablet) 650 mg PO Q6H PRN PRN Reason: Headache/Pain Mild Scale (1-3) Al Hydroxide/Mg Hydroxide (Magnesium Hydrox/Alum Hydrox 30 Ml Oral.Susp) 30 ml PO Q6H PRN PRN Reason: Heartburn/Nausea Albuterol Sulfate (Albuterol Sulfate 90 Mcg 8 Gm Inhaler) 2 puff INHALE RQ4H PRN PRN Reason: Shortness Of Breath Last Admin: 05/02/24 09:08 Dose: 2 puff Amphetamine/Dextroamphetamine (Amphetamine Mixed Salts 10 Mg Tablet) 10 mg PO DAILY@1500 [facility] Last Admin: 05/01/24 15:06 Dose: 10 mg Amphetamine/Dextroamphetamine (Dextroamphetamine/Amphetamine Xr 10 Mg Cap.Er.24h) 20 mg PO DAILY [facility] Last Admin: 05/02/24 08:45 Dose: 20 mg Buprenorphine/Naloxone (Buprenorphine/Naloxone 8/2 Mg Film) 1 film BUCCAL TID [facility] Last Admin: 05/02/24 08:45 Dose: 1 film Bupropion HCl (Bupropion Hcl Xl 300 Mg Tab.Er.24h) 300 mg PO DAILY [facility] Last Admin: 05/02/24 08:45 Dose: 300 mg Clonidine HCl (Clonidine Hcl 0.2 Mg Tablet) 0.2 mg PO TID PRN; Protocol PRN Reason: anxiety Last Admin: 05/02/24 10:56 Dose: 0.2 mg Cyclobenzaprine HCl (Cyclobenzaprine Hcl 10 Mg Tablet) 10 mg PO TID PRN PRN Reason: Muscle Spasm Last Admin: 05/02/24 09:09 Dose: 10 mg Gabapentin (Gabapentin 400 Mg Capsule) 800 mg PO TID [facility] Last Admin: 05/02/24 08:45 Dose: 800 mg Hydroxyzine HCl (Hydroxyzine Hcl 25 Mg Tablet) 25 mg PO Q6H PRN PRN Reason: Anxiety Hydroxyzine HCl (Hydroxyzine Hcl 50 Mg Tablet) 100 mg PO Q8H PRN PRN Reason: anxiety/restlessness Ibuprofen (Ibuprofen 600 Mg Tablet) 600 mg PO TIDWM PRN PRN Reason: moderate pain Last Admin: 05/02/24 09:09 Dose: 600 mg Lactic Acid (Ammonium Lactate 12 % Lotion 226 Gm Bottle) 1 appl TOPICAL BID [facility]; Protocol Last Admin: 05/02/24 09:11 Dose: Not Given Lamotrigine (Lamotrigine 100 Mg Tablet) 300 mg PO BEDTIME [facility] Last Admin: 05/01/24 21:34 Dose: 300 mg Lorazepam (Lorazepam 1 Mg Tablet) 1 mg PO Q8H PRN PRN Reason: anxiety/restlessness Last Admin: 05/02/24 09:09 Dose: 1 mg Magnesium Hydroxide (Milk Of Magnesia 30 Ml Oral.Susp) 30 ml PO DAILY PRN PRN Reason: Constipation Metformin HCl (Metformin Hcl 500 Mg Tablet) 500 mg PO BIDWM [facility] Last Admin: 05/02/24 08:45 Dose: 500 mg Omeprazole (Omeprazole 40 Mg Capsule.Dr) 40 mg PO BID@0630,1630 [facility] Last Admin: 05/02/24 08:45 Dose: 40 mg Prazosin HCl (Prazosin Hcl 5 Mg Capsule) 10 mg PO BEDTIME [facility]; Protocol Last Admin: 05/01/24 21:33 Dose: 10 mg Quetiapine Fumarate (Quetiapine Fumarate 400 Mg Tablet) 400 mg PO BEDTIME [facility] Last Admin: 05/01/24 21:36 Dose: 400 mg Torsemide (Torsemide 20 Mg Tablet) 40 mg PO DAILY [facility]; Protocol Last Admin: 05/02/24 08:44 Dose: 40 mg Trolamine Salicylate (Trolamine Salicylate 10 % Cream 85 Gm Tube) 1 appl TOPICAL BID PRN; Protocol PRN Reason: Pain, Moderate(Pain Scale 4-6) Last Admin: 05/01/24 22:39 Dose: 1 appl Allergies Allergies Allergy/AdvReac Type Severity Reaction Status Date / Time haloperidol [From Haldol] Allergy Unknown Verified 02/25/24 19:01 trazodone AdvReac restless Verified 02/26/24 17:14 leg syndrome Assessment & Plan Assessment & Plan (1) Personality disorder: Status: Acute Code(s): F60.9 - Personality disorder, unspecified (2) Polysubstance use disorder: Status: Acute Code(s): F19.90 - Other psychoactive substance use, unspecified, uncomplicated (3) ADHD: Status: Acute Code(s): F90.9 - Attention-deficit hyperactivity disorder, unspecified type (4) Bipolar disorder: Status: Acute Code(s): F31.9 - Bipolar disorder, unspecified Plan Hypokalemia Review of labs shows potassium low at 3.0 Will give potassium p.o. supplementation Repeat labs tomorrow CTP adjust torosemide probably resulted in low potassium ? if dose to high- Patient educated on: medication risk/benefits and medical condition Informed Consent: understands and further education needed Reason for continued inpatient stay Substantial Risk for: harm to self, harm to others and rapid decompensation Time Spent With Patient Time: Total time managing care of this patient today ____ minutes.
[2024-05-02] MEDS: Amphetamine Mixed Salts 10 MG TABLET PO (14:53)
[2024-05-02 16:07] VITALS: BP 141/77
[2024-05-02] MEDS: Torsemide 20 MG TABLET 80 MG PO (16:07)
[2024-05-02 21:50] VITALS: BP 164/74; PULSE 97; RESP 20; TEMP 37.1; O2SAT 95
[2024-05-02 21:56] VITALS: BP 169/77
[2024-05-02] MEDS: QUEtiapine Fumarate 400 MG TABLET PO (22:01)
[2024-05-02] MEDS: lamoTRIgine 100 MG TABLET 300 MG PO (22:03)
[2024-05-02] MEDS: Prazosin HCL 5 MG CAPSULE 10 MG PO (22:03)
[2024-05-03] MEDS: QUEtiapine Fumarate 50 MG TABLET PO ×2 (00:11→22:28)
[2024-05-03] MEDS: LORazepam 1 MG TABLET PO ×3 (00:11→17:00)
[2024-05-03] MEDS: Melatonin 3 MG TABLET 9 MG PO ×2 (00:54→22:08)
[2024-05-03] MEDS: Ammonium Lactate 12 % Lotion 226 GM BOTTLE 1 APPL TOPICAL ×2 (05:52→22:07)
[2024-05-03] MEDS: Albuterol Sulfate 90 MCG 8 GM INHALER 2 PUFF INHALE ×4 (05:52→19:32)
[2024-05-03] MEDS: Omeprazole 40 MG CAPSULE.DR PO ×2 (06:17→16:27)
[2024-05-03 08:51] LABS: Anion Gap 12 (12-20); Blood Urea Nitrogen 21 mg/dL (9-16); Carbon Dioxide 30 mmol/L (22-29); Chloride 98 mmol/L (96-108); Creatinine Clr Calc Pharmacy 161.5; Estimated Glomerular Filt Rate > 60; Glucose Random 103 mg/dL (60-115); Potassium 3.1 mmol/L (3.3-5.1); Sodium 137 mmol/L (135-145)
[2024-05-03] MEDS: Gabapentin 400 MG CAPSULE 800 MG PO ×3 (09:17→22:10)
[2024-05-03] MEDS: metFORMIN HCl 500 MG TABLET PO ×2 (09:17→17:00)
[2024-05-03] MEDS: buPROPion HCl XL 300 MG TAB.ER.24H PO (09:17)
[2024-05-03] MEDS: Cyclobenzaprine HCl 10 MG TABLET PO ×3 (09:17→22:09)
[2024-05-03] MEDS: Dextroamphetamine/Amphetamine XR 10 MG CAP.ER.24H 20 MG PO (09:17)
[2024-05-03] MEDS: Buprenorphine/Naloxone 8/2 mg FILM 1 FILM BUCCAL ×3 (09:17→22:07)
[2024-05-03 09:28] VITALS: BP 144/80
[2024-05-03] MEDS: Torsemide 20 MG TABLET 80 MG PO ×2 (09:28→15:30)
[2024-05-03 09:31] VITALS: BP 144/80; PULSE 77; RESP 20; TEMP 36.1; O2SAT 97
--- NOTE | 2024-05-03 09:56 | P.PNPSI_ITS ---
Subjective Subjective Date of Service: 05/03/24 Reason For Visit: unspecified bipolar d/o Subjective Notes: Conditional Voluntary Interim History: Reviewed with Dr. Harris. Keeping to self. Patient reports having a lot of anxiety . Patient stated, it is my dad's birthday and he is dying of cancer and I can't be with him. My dad encouraged me to go get help because I was having thoughts of hurting his doctors because they were not helping him . Patient reports homicidal ideation towards his father's physicians. Patient stated, I was thinking about killing his doctors and then killing myself. I wouldn't be worried about going to longterm because I would be . Patient reports he is interested in some kind of long-term psychiatric care where I can't hurt myself or anyone else . He reports his current medications help his mood. Patient denies AH/VH. Medication Compliance: Yes Side effects from medications: No Attending Groups: Intermittent Review of Systems Constitutional: Reports as per HPI Eyes: Reports as per HPI Reports as per HPI Cardiovascular: Reports as per HPI Respiratory: Reports as per HPI Gastrointestinal: Reports as per HPI Genitourinary: Reports as per HPI Musculoskeletal: Reports as per HPI Skin/Breast: Reports as per HPI Reports as per HPI Psychiatric: Reports as per HPI Endocrine: Reports as per HPI Hematologic/Lymphatic: Reports as per HPI Allergic/Immunologic: Reports as per HPI Mental Status Exam Mental Status Exam Narrative: Pt is alert and oriented; behavior is cooperative and calm; dressed in casual attire; mood is described as anxious ; eye contact appropriate; Speech is normal rate, volume and not pressured; thought process is organized and goal directed; Thought content is on tx; denies AH/VH. Pt reports suicidal ideation and homicidal ideation. Diagnostics Vital Signs (24Hr): Vital Signs - 24 hr 05/02/24 10:56 05/02/24 16:07 05/02/24 21:50 Temperature 98.8 F Pulse Rate 97 Respiratory Rate 20 Blood Pressure 135/60 141/77 H 164/74 H Pulse Oximetry 95 Oxygen Delivery Method Room Air 05/02/24 21:56 05/03/24 09:28 05/03/24 09:31 Temperature 96.9 F Pulse Rate 77 Respiratory Rate 20 Blood Pressure 169/77 H 144/80 H 144/80 H Pulse Oximetry 97 Oxygen Delivery Method Room Air BMI result Body Mass Index 69.2 Labs 05/03/24 08:23 Labs: Laboratory Results - last 48 hr 05/01/24 05/02/24 05/03/24 16:42 08:41 08:23 Sodium 138 137 Potassium 3.0 L 3.1 L Chloride 99 98 Carbon Dioxide 32 H 30 H Anion Gap 10 L 12 BUN 16 21 H Creatinine 0.92 0.91 1.22 Estim Creat Clear Calc 214.2 216.6 161.5 Estimated GFR > 60 > 60 > 60 Random Glucose 103 Fasting Glucose 91 Calcium 9.9 10.0 Total Bilirubin 0.4 AST 121 H ALT 152 H Alkaline Phosphatase 94 Total Protein 7.5 Albumin 3.6 Triglycerides 63 Cholesterol 127 LDL Cholesterol, Calc 67 HDL Cholesterol 48 Medications Medications Current Medications Acetaminophen (Acetaminophen 325 Mg Tablet) 650 mg PO Q6H PRN PRN Reason: Headache/Pain Mild Scale (1-3) Al Hydroxide/Mg Hydroxide (Magnesium Hydrox/Alum Hydrox 30 Ml Oral.Susp) 30 ml PO Q6H PRN PRN Reason: Heartburn/Nausea Albuterol Sulfate (Albuterol Sulfate 90 Mcg 8 Gm Inhaler) 2 puff INHALE RQ4H PRN PRN Reason: Shortness Of Breath Last Admin: 05/03/24 09:16 Dose: 2 puff Amphetamine/Dextroamphetamine (Amphetamine Mixed Salts 10 Mg Tablet) 10 mg PO DAILY@1500 [facility] Last Admin: 05/02/24 14:53 Dose: 10 mg Amphetamine/Dextroamphetamine (Dextroamphetamine/Amphetamine Xr 10 Mg Cap.Er.24h) [address] [facility] Last Admin: 05/03/24 09:17 Dose: 20 mg Buprenorphine/Naloxone (Buprenorphine/Naloxone 8/2 Mg Film) [address] [facility] Last Admin: 05/03/24 09:17 Dose: 1 film Bupropion HCl (Bupropion Hcl Xl 300 Mg Tab.Er.24h) [address] [facility] Last Admin: 05/03/24 09:17 Dose: 300 mg Clonidine HCl (Clonidine Hcl 0.2 Mg Tablet) 0.2 mg PO TID PRN; Protocol PRN Reason: anxiety Last Admin: 05/02/24 22:07 Dose: 0.2 mg Cyclobenzaprine HCl (Cyclobenzaprine Hcl 10 Mg Tablet) 10 mg PO TID PRN PRN Reason: Muscle Spasm Last Admin: 05/03/24 09:17 Dose: 10 mg Gabapentin (Gabapentin 400 Mg Capsule) [address] [facility] Last Admin: 05/03/24 09:17 Dose: 800 mg Hydroxyzine HCl (Hydroxyzine Hcl 25 Mg Tablet) 25 mg PO Q6H PRN PRN Reason: Anxiety Hydroxyzine HCl (Hydroxyzine Hcl 50 Mg Tablet) 100 mg PO Q8H PRN PRN Reason: anxiety/restlessness Ibuprofen (Ibuprofen 600 Mg Tablet) 600 mg PO TIDWM PRN PRN Reason: moderate pain Last Admin: 05/02/24 22:07 Dose: 600 mg Lactic Acid (Ammonium Lactate 12 % Lotion 226 Gm Bottle) [address] [facility]; Protocol Last Admin: 05/03/24 05:52 Dose: 1 appl Lamotrigine (Lamotrigine 100 Mg Tablet) [address] [facility] Last Admin: 05/02/24 22:03 Dose: 300 mg Lorazepam (Lorazepam 1 Mg Tablet) 1 mg PO Q8H PRN PRN Reason: anxiety/restlessness Last Admin: 05/03/24 09:17 Dose: 1 mg Magnesium Hydroxide (Milk Of Magnesia 30 Ml Oral.Susp) 30 ml PO DAILY PRN PRN Reason: Constipation Melatonin (Melatonin 3 Mg Tablet) 9 mg PO BEDTIME PRN PRN Reason: Insomnia Last Admin: 05/03/24 00:54 Dose: 9 mg Metformin HCl (Metformin Hcl 500 Mg Tablet) [address] [facility] Last Admin: 05/03/24 09:17 Dose: 500 mg Omeprazole (Omeprazole 40 Mg Capsule.Dr) 40 mg PO BID@0630,1630 [facility] Last Admin: 05/03/24 06:17 Dose: 40 mg Prazosin HCl (Prazosin Hcl 5 Mg Capsule) [address] [facility]; Protocol Last Admin: 05/02/24 22:03 Dose: 10 mg Quetiapine Fumarate (Quetiapine Fumarate 400 Mg Tablet) [address] [facility] Last Admin: 05/02/24 22:01 Dose: 400 mg Quetiapine Fumarate (Quetiapine Fumarate 50 Mg Tablet) 50 mg PO Q6H PRN PRN Reason: severe anxiety/agitation Last Admin: 05/03/24 00:11 Dose: 50 mg Torsemide (Torsemide 20 Mg Tablet) 80 mg PO BID@0800,1500 [facility]; Protocol Last Admin: 05/03/24 09:28 Dose: 80 mg Trolamine Salicylate (Trolamine Salicylate 10 % Cream 85 Gm Tube) 1 appl TOPICAL BID PRN; Protocol PRN Reason: Pain, Moderate(Pain Scale 4-6) Last Admin: 05/01/24 22:39 Dose: 1 appl Allergies Allergies Allergy/AdvReac Type Severity Reaction Status Date / Time haloperidol [From Haldol] Allergy Unknown Verified 02/25/24 19:01 trazodone AdvReac restless Verified 02/26/24 17:14 leg syndrome Assessment & Plan Assessment & Plan (1) Bipolar disorder: Status: Acute Code(s): F31.9 - Bipolar disorder, unspecified (2) ADHD: Status: Acute Code(s): F90.9 - Attention-deficit hyperactivity disorder, unspecified type (3) Polysubstance use disorder: Status: Acute Code(s): F19.90 - Other psychoactive substance use, unspecified, uncomplicated (4) Personality disorder: Status: Acute Code(s): F60.9 - Personality disorder, unspecified Plan HPI_ 39 yo MWM presents after having visited father Friday who has stage 4 cancer and is in a protocol at [facility]- feeling si about possibly not seeing him again with thoughts to jump of bridge- Also reports he has access to fire arms (knows gang people) and homicidal toward [place] drs who didn't do more for his dad- Reports homeless and went to live with her mother , he doesn't get along with mother in law so can't go there- [facility] to hospital for psychiatric care- feeling he needs some kind of [place] [facility] psychiatric hospitalization. He does have wrap around care at [facility] who rxs meds, has casemanager which he will do release for - pcp gets consultation for psych meds and suboxone care- 05/01/24 - resume treatment get release for healthcare provider casemanager- 05/03: Keeping to self. Patient reports having a lot of anxiety . Patient stated, it is my dad's birthday and he is dying of cancer and I can't be with him. My dad encouraged me to go get help because I was having thoughts of hurting his doctors because they were not helping him . Patient reports homicidal ideation towards his father's physicians. Patient stated, I was thinking about killing his doctors and then killing myself. I wouldn't be worried about going to longterm because I would be . Patient reports he is interested in some kind of long-term psychiatric care where I can't hurt myself or anyone else . He reports his current medications help his mood. Patient denies AH/VH. We will need to obtain collateral from outpatient providers. Patient educated on: diagnosis, medication risk/benefits and therapeutic strategies Reason for continued inpatient stay Substantial Risk for: harm to self, harm to others and med/psych decompensation Time Spent With Patient Time: Total time managing care of this patient today _20___ minutes.
[2024-05-03] MEDS: Ibuprofen 600 MG TABLET PO (15:29)
[2024-05-03] MEDS: Amphetamine Mixed Salts 10 MG TABLET PO (15:29)
[2024-05-03 15:30] VITALS: BP 147/72
[2024-05-03] MEDS: cloNIDine HCL 0.2 MG TABLET PO ×2 (15:43→22:11)
[2024-05-03] MEDS: hydrOXYzine HCL 50 MG TABLET 100 MG PO (15:44)
--- NOTE | 2024-05-03 16:20 | PM.EVENT ---
Event Note Date of Service: 05/03/24 Event Note: pt seen in f/u for concern of cellulitis of the legs, pt was seen by hospitalist Letitia goodrich, see note for detail. He is morbidly obese with chronic lymphadema and take torsemide, had some some redness of both legs, there is no increase warmth He says they are usually red but maybe more now. Recent WBC 2 days ago normal. No fever. Additional there was c/o wheezing, on my exam. now wheezing, he was comfortable, no distress. Exam of the legs with the pictures as follow. a/p chronic lymphadema with possible superimposed cellulitis PO Doxy x 5 to 7 days hypokalemia--replace with po k mild PIETER--probably fro diuretic, reduce dose of torsemide to 40 bid or once daily and follow creatine daily Pre diabetes--A1c 5.3 in february, stop metformin if creatine increasing morboid obese--weight loss encouraged, he likely has obesity hypoventilation syndrome, and will benefit from a sleep study at some point Time Spent With Patient Time: Total time managing care of this patient today ____ minutes.
[2024-05-03] MEDS: Doxycycline Monohydrate 100 MG CAPSULE PO (17:00)
[2024-05-03] MEDS: Potassium Chloride ER 20 MEQ TAB.ER.PRT 40 MEQ PO (17:00)
[2024-05-03 22:00] VITALS: BP 151/72; PULSE 102; RESP 17; TEMP 36.9; O2SAT 96
[2024-05-03] MEDS: Prazosin HCL 5 MG CAPSULE 10 MG PO (22:07)
[2024-05-03] MEDS: lamoTRIgine 100 MG TABLET 300 MG PO (22:08)
[2024-05-03] MEDS: QUEtiapine Fumarate 400 MG TABLET PO (22:10)
[2024-05-03 22:11] VITALS: BP 151/72
--- NOTE | 2024-05-03 22:25 | PC.NURSE ---
suboxone education-offered education about use of suboxone and times of administration. acknowledged education but requested that HS suboxone be given with HS medications, requested medications at 2200.
[2024-05-03] MEDS: hydrOXYzine HCL 25 MG TABLET PO (22:28)
--- NOTE | 2024-05-04 | ECG_ITS ---
Test Reason : QTC CHECK Blood Pressure : / mmHG Vent. Rate : 075 BPM Atrial Rate : 075 BPM P-R Int : 184 ms QRS Dur : 116 ms QT Int : 416 ms P-R-T Axes : 026 058 047 degrees QTc Int : 464 ms Normal sinus rhythm with sinus arrhythmia Normal ECG No previous ECGs available Referred By: Garrett Harris Electronically Signed By:MEI GASTELUM
[2024-05-04] MEDS: Acetaminophen 325 MG TABLET 650 MG PO ×3 (03:38→21:16)
[2024-05-04] MEDS: Albuterol Sulfate 90 MCG 8 GM INHALER 2 PUFF INHALE ×3 (03:38→16:58)
[2024-05-04] MEDS: LORazepam 1 MG TABLET PO ×3 (03:38→21:17)
[2024-05-04] MEDS: Doxycycline Monohydrate 100 MG CAPSULE PO ×2 (05:10→16:59)
--- NOTE | 2024-05-04 05:42 | PC.NURSE ---
legs-reports legs are painful. has not laid in bed, sleeps at table or sits on the side of his bed. reports that in the past he has been medically hospitalized, given torsemide IV, placed on a clinical research nurse coordinator, given potassium supplements PO to reduce swelling. reports it has become increasingly difficult to ambulate. ''I'm a big [place] but I know my body'' ''I am uncomfortable''
--- NOTE | 2024-05-04 06:48 | PC.NURSE ---
prilosec-not given at this time as patient is in a supine position in bed sleeping. HOB is elevated. no wheezing, no snoring.
[2024-05-04 08:18] LABS: Anion Gap 10 (12-20); Blood Urea Nitrogen 21 mg/dL (9-16); Calcium 9.8 mg/dL (8.4-10.2); Carbon Dioxide 33 mmol/L (22-29); Chloride 100 mmol/L (96-108); Creatinine Clr Calc Pharmacy 197.1; Estimated Glomerular Filt Rate > 60; Glucose Random 97 mg/dL (60-115); Potassium 3.2 mmol/L (3.3-5.1); Sodium 140 mmol/L (135-145)
[2024-05-04 08:34] VITALS: BP 158/79; PULSE 80; RESP 16; TEMP 36.3; O2SAT 97
[2024-05-04] MEDS: Torsemide 20 MG TABLET 40 MG PO ×2 (08:44→15:23)
[2024-05-04] MEDS: metFORMIN HCl 500 MG TABLET PO ×2 (08:44→16:59)
[2024-05-04] MEDS: Omeprazole 40 MG CAPSULE.DR PO ×2 (08:44→17:00)
[2024-05-04] MEDS: Dextroamphetamine/Amphetamine XR 10 MG CAP.ER.24H 20 MG PO (08:45)
[2024-05-04] MEDS: buPROPion HCl XL 300 MG TAB.ER.24H PO (08:45)
[2024-05-04] MEDS: Gabapentin 400 MG CAPSULE 800 MG PO ×3 (08:45→21:16)
[2024-05-04] MEDS: Buprenorphine/Naloxone 8/2 mg FILM 1 FILM BUCCAL ×3 (08:46→21:16)
[2024-05-04] MEDS: Cyclobenzaprine HCl 10 MG TABLET PO ×2 (08:54→21:17)
[2024-05-04] MEDS: hydrOXYzine HCL 50 MG TABLET 100 MG PO (08:54)
[2024-05-04] MEDS: cloNIDine HCL 0.2 MG TABLET PO ×2 (08:54→16:59)
--- NOTE | 2024-05-04 09:10 | HO.PSYCHPN ---
Subjective Subjective Date of Service: 05/04/24 Reason For Visit: unspecified bipolar d/o Subjective Notes: Conditional Voluntary Interim History: Observed sitting out in milieu. Social with select peers. Met with patient and Dr. Harris present. Patient reports feeling similar to yesterday. He reports moments of crying randomly for hours . Patient continues to report suicidal ideation and homicidal ideation. He reports homicidal ideation towards the [place] doctors who would not treat my dad . When discussing future treatment options, patient stated, I don't give a fuck right now. I'm just tired of everything . When asked if T/W could speak to family, patient declined. Increase Lamictal to 325mg PO bedtime Decrease hydroxyzine to 50mg Q8hr PRN Medication Compliance: Yes Side effects from medications: No Attending Groups: Intermittent Review of Systems Constitutional: Reports as per HPI Eyes: Reports as per HPI Reports as per HPI Cardiovascular: Reports as per HPI Respiratory: Reports as per HPI Gastrointestinal: Reports as per HPI Genitourinary: Reports as per HPI Musculoskeletal: Reports as per HPI Skin/Breast: Reports as per HPI Reports as per HPI Psychiatric: Reports as per HPI Endocrine: Reports as per HPI Hematologic/Lymphatic: Reports as per HPI Allergic/Immunologic: Reports as per HPI Mental Status Exam Mental Status Exam Narrative: Pt is alert and oriented; behavior is cooperative, guarded; dressed in casual attire; mood is described as depressed ; eye contact appropriate; Speech is normal rate, volume and not pressured; thought process is organized; Thought content is hopeless; denies AH/VH. Pt reports suicidal ideation and homicidal ideation. Poor insight and judgment. Diagnostics Vital Signs (24Hr): Vital Signs - 24 hr 05/03/24 09:28 05/03/24 09:31 05/03/24 15:30 Temperature 96.9 F Pulse Rate 77 Respiratory Rate 20 Blood Pressure 144/80 H 144/80 H 147/72 H Pulse Oximetry 97 Oxygen Delivery Method Room Air 05/03/24 22:00 05/03/24 22:11 05/04/24 08:34 Temperature 98.4 F 97.3 F Pulse Rate 102 H 80 Respiratory Rate 17 16 Blood Pressure 151/72 H 151/72 H 158/79 H Pulse Oximetry 96 97 Oxygen Delivery Method Room Air Room Air BMI result Body Mass Index 69.2 Labs 05/03/24 17:20 05/04/24 07:55 Labs: Laboratory Results - last 48 hr 05/03/24 05/03/24 05/04/24 08:23 17:20 07:55 WBC Cancelled RBC Cancelled Hgb Cancelled Hct Cancelled MCV Cancelled MCH Cancelled MCHC Cancelled RDW Cancelled Plt Count Cancelled MPV Cancelled Immature Gran % (Auto) Cancelled Neut % (Auto) Cancelled Lymph % (Auto) Cancelled [place] % (Auto) Cancelled Eos % (Auto) Cancelled Baso % (Auto) Cancelled Lymph # (Auto) Cancelled [place] # (Auto) Cancelled Eos # (Auto) Cancelled Baso # (Auto) Cancelled Abs Immat Gran (auto) Cancelled Absolute Neuts (auto) Cancelled Absolute Nucleated RBC Cancelled Nucleated RBC % (auto) Cancelled Sodium 137 140 Potassium 3.1 L 3.2 L Chloride 98 100 Carbon Dioxide 30 H 33 H Anion Gap 12 10 L BUN 21 H 21 H Creatinine 1.22 1.00 Estim Creat Clear Calc 161.5 197.1 Estimated GFR > 60 > 60 Random Glucose 103 97 Calcium 10.0 9.8 Medications Medications Current Medications Acetaminophen (Acetaminophen 325 Mg Tablet) 650 mg PO Q6H PRN PRN Reason: Headache/Pain Mild Scale (1-3) Last Admin: 05/04/24 03:38 Dose: 650 mg Al Hydroxide/Mg Hydroxide (Magnesium Hydrox/Alum Hydrox 30 Ml Oral.Susp) 30 ml PO Q6H PRN PRN Reason: Heartburn/Nausea Albuterol Sulfate (Albuterol Sulfate 90 Mcg 8 Gm Inhaler) 2 puff INHALE RQ4H PRN PRN Reason: Shortness Of Breath Last Admin: 05/04/24 08:53 Dose: 2 puff Amphetamine/Dextroamphetamine (Amphetamine Mixed Salts 10 Mg Tablet) 10 mg PO DAILY@1500 [facility] Last Admin: 05/03/24 15:29 Dose: 10 mg Amphetamine/Dextroamphetamine (Dextroamphetamine/Amphetamine Xr 10 Mg Cap.Er.24h) 20 mg PO DAILY [facility] Last Admin: 05/04/24 08:45 Dose: 20 mg Buprenorphine/Naloxone (Buprenorphine/Naloxone 8/2 Mg Film) 1 film BUCCAL TID [facility] Last Admin: 05/04/24 08:46 Dose: 1 film Bupropion HCl (Bupropion Hcl Xl 300 Mg Tab.Er.24h) 300 mg PO DAILY [facility] Last Admin: 05/04/24 08:45 Dose: 300 mg Clonidine HCl (Clonidine Hcl 0.2 Mg Tablet) 0.2 mg PO TID PRN; Protocol PRN Reason: anxiety Last Admin: 05/04/24 08:54 Dose: 0.2 mg Cyclobenzaprine HCl (Cyclobenzaprine Hcl 10 Mg Tablet) 10 mg PO TID PRN PRN Reason: Muscle Spasm Last Admin: 05/04/24 08:54 Dose: 10 mg Doxycycline Monohydrate (Doxycycline Monohydrate 100 Mg Capsule) 100 mg PO Q12H [facility] Stop: 05/10/24 05:01 Last Admin: 05/04/24 05:10 Dose: 100 mg Gabapentin (Gabapentin 400 Mg Capsule) 800 mg PO TID [facility] Last Admin: 05/04/24 08:45 Dose: 800 mg Hydroxyzine HCl (Hydroxyzine Hcl 25 Mg Tablet) 25 mg PO Q6H PRN PRN Reason: Anxiety Last Admin: 05/03/24 22:28 Dose: 25 mg Hydroxyzine HCl (Hydroxyzine Hcl 50 Mg Tablet) 100 mg PO Q8H PRN PRN Reason: anxiety/restlessness Last Admin: 05/04/24 08:54 Dose: 100 mg Lactic Acid (Ammonium Lactate 12 % Lotion 226 Gm Bottle) 1 appl TOPICAL BID [facility]; Protocol Last Admin: 05/03/24 22:07 Dose: 1 appl Lamotrigine (Lamotrigine 100 Mg Tablet) 300 mg PO BEDTIME [facility] Last Admin: 05/03/24 22:08 Dose: 300 mg Lorazepam (Lorazepam 1 Mg Tablet) 1 mg PO Q8H PRN PRN Reason: anxiety/restlessness Last Admin: 05/04/24 03:38 Dose: 1 mg Magnesium Hydroxide (Milk Of Magnesia 30 Ml Oral.Susp) 30 ml PO DAILY PRN PRN Reason: Constipation Melatonin (Melatonin 3 Mg Tablet) 9 mg PO BEDTIME PRN PRN Reason: Insomnia Last Admin: 05/03/24 22:08 Dose: 9 mg Metformin HCl (Metformin Hcl 500 Mg Tablet) 500 mg PO BIDWM [facility] Last Admin: 05/04/24 08:44 Dose: 500 mg Omeprazole (Omeprazole 40 Mg Capsule.Dr) 40 mg PO BID@0630,1630 [facility] Last Admin: 05/04/24 08:44 Dose: 40 mg Prazosin HCl (Prazosin Hcl 5 Mg Capsule) 10 mg PO BEDTIME [facility]; Protocol Last Admin: 05/03/24 22:07 Dose: 10 mg Quetiapine Fumarate (Quetiapine Fumarate 400 Mg Tablet) 400 mg PO BEDTIME [facility] Last Admin: 05/03/24 22:10 Dose: 400 mg Quetiapine Fumarate (Quetiapine Fumarate 50 Mg Tablet) 50 mg PO Q6H PRN PRN Reason: severe anxiety/agitation Last Admin: 05/03/24 22:28 Dose: 50 mg Torsemide (Torsemide 20 Mg Tablet) 40 mg PO BID@0800,1500 [facility]; Protocol Last Admin: 05/04/24 08:44 Dose: 40 mg Trolamine Salicylate (Trolamine Salicylate 10 % Cream 85 Gm Tube) 1 appl TOPICAL BID PRN; Protocol PRN Reason: Pain, Moderate(Pain Scale 4-6) Last Admin: 05/01/24 22:39 Dose: 1 appl Allergies Allergies Allergy/AdvReac Type Severity Reaction Status Date / Time haloperidol [From Haldol] Allergy Unknown Verified 02/25/24 19:01 trazodone AdvReac restless Verified 02/26/24 17:14 leg syndrome Assessment & Plan Assessment & Plan (1) Bipolar disorder: Status: Acute Code(s): F31.9 - Bipolar disorder, unspecified (2) Personality disorder: Status: Acute Code(s): F60.9 - Personality disorder, unspecified (3) Polysubstance use disorder: Status: Acute Code(s): F19.90 - Other psychoactive substance use, unspecified, uncomplicated (4) ADHD: Status: Acute Code(s): F90.9 - Attention-deficit hyperactivity disorder, unspecified type Plan HPI_ 39 yo MWM presents after having visited father Friday who has stage 4 cancer and is in a protocol at [facility]- feeling si about possibly not seeing him again with thoughts to jump of bridge- Also reports he has access to fire arms (knows gang people) and homicidal toward [facility] who didn't do more for his dad- Reports homeless and went to live with her mother , he doesn't get along with mother in law so can't go there- Describes chaotic hospital to hospital ER to [facility] to hospital for psychiatric care- feeling he needs some kind of terminal makeup operator psychiatric hospitalization. He does have wrap around care at [facility] who rxs meds, has casemanager which he will do release for - pcp gets consultation for psych meds and suboxone care- 05/01/24 - resume treatment get release for healthcare provider casemanager- 05/02: I have borderline personality disorder - TElls me story about why he hates his mother in law- betrayal she did to her daugther by sec 12 her years ago - saw the pain in 's eyes PT reports meds restarted are fine- continues to think he needs skilled nursing hospitalization [place] and casemanager- which is more than many have here- suspect recurrent homelessness and substance use with threats of si behind recurrent hospitalizations and desire for terminal makeup operator- Also father in stage 4 cancer, saw wed- and still homicidal with supposed access to guns toward father's [facility] dr[facility]. 05/03: Keeping to self. Patient reports having a lot of anxiety . Patient stated, it is my dad's birthday and he is dying of cancer and I can't be with him. My dad encouraged me to go get help because I was having thoughts of hurting his doctors because they were not helping him . Patient reports homicidal ideation towards his father's physicians. Patient stated, I was thinking about killing his doctors and then killing myself. I wouldn't be worried about going to [facility] because I would be . Patient reports he is interested in some kind of long-term psychiatric care where I can't hurt myself or anyone else . He reports his current medications help his mood. Patient denies AH/VH. We will need to obtain collateral from outpatient providers. 05/04: Observed sitting out in milieu. Social with select peers. Met with patient and Dr. Harris present. Patient reports feeling similar to yesterday. He reports moments of crying randomly for hours . Patient continues to report suicidal ideation and homicidal ideation. He reports homicidal ideation towards the [facility] who would not treat my dad . When discussing future treatment options, patient stated, I don't give a fuck right now. I'm just tired of everything . When asked if T/W could speak to family, patient declined. Increase Lamictal to 325mg PO bedtime Decrease hydroxyzine to 50mg Q8hr PRN Patient educated on: diagnosis, medication risk/benefits and therapeutic strategies Reason for continued inpatient stay Substantial Risk for: med/psych decompensation Time Spent With Patient Time: Total time managing care of this patient today _20___ minutes.
[2024-05-04 15:23] VITALS: BP 144/70
[2024-05-04] MEDS: Amphetamine Mixed Salts 10 MG TABLET PO (15:23)
[2024-05-04 16:59] VITALS: BP 153/76
[2024-05-04 21:00] VITALS: BP 143/76; PULSE 99; RESP 17; TEMP 36.8; O2SAT 94
[2024-05-04 21:16] VITALS: BP 143/76
[2024-05-04] MEDS: QUEtiapine Fumarate 400 MG TABLET PO (21:16)
[2024-05-04] MEDS: Prazosin HCL 5 MG CAPSULE 10 MG PO (21:16)
[2024-05-04] MEDS: QUEtiapine Fumarate 50 MG TABLET PO (21:17)
[2024-05-04] MEDS: hydrOXYzine HCL 50 MG TABLET PO (21:17)
[2024-05-04] MEDS: Melatonin 3 MG TABLET 9 MG PO (21:17)
[2024-05-04] MEDS: lamoTRIgine 25 MG TABLET 325 MG PO (21:19)
[2024-05-04] MEDS: Ammonium Lactate 12 % Lotion 226 GM BOTTLE 1 APPL TOPICAL (21:19)
[2024-05-05] MEDS: Albuterol Sulfate 90 MCG 8 GM INHALER 2 PUFF INHALE ×5 (00:13→23:06)
[2024-05-05] MEDS: Doxycycline Monohydrate 100 MG CAPSULE PO ×2 (05:41→17:10)
[2024-05-05] MEDS: Omeprazole 40 MG CAPSULE.DR PO ×2 (06:04→15:49)
--- NOTE | 2024-05-05 08:13 | HO.PSYCHPN ---
Subjective Subjective Reason For Visit: unspecified bipolar d/o Diagnostics Vital Signs (24Hr): Vital Signs - 24 hr 05/04/24 08:34 05/04/24 15:23 05/04/24 16:59 Temperature 97.3 F Pulse Rate 80 Respiratory Rate 16 Blood Pressure 158/79 H 144/70 H 153/76 H Pulse Oximetry 97 Oxygen Delivery Method Room Air 05/04/24 21:00 05/04/24 21:16 Temperature 98.3 F Pulse Rate 99 Respiratory Rate 17 Blood Pressure 143/76 H 143/76 H Pulse Oximetry 94 Oxygen Delivery Method Room Air BMI result Body Mass Index 69.2 Labs 05/03/24 17:20 05/04/24 07:55 Labs: Laboratory Results - last 48 hr 05/03/24 05/03/24 05/04/24 08:23 17:20 07:55 WBC Cancelled RBC Cancelled Hgb Cancelled Hct Cancelled MCV Cancelled MCH Cancelled MCHC Cancelled RDW Cancelled Plt Count Cancelled MPV Cancelled Immature Gran % (Auto) Cancelled Neut % (Auto) Cancelled Lymph % (Auto) Cancelled [place] % (Auto) Cancelled Eos % (Auto) Cancelled Baso % (Auto) Cancelled Lymph # (Auto) Cancelled [place] # (Auto) Cancelled Eos # (Auto) Cancelled Baso # (Auto) Cancelled Abs Immat Gran (auto) Cancelled Absolute Neuts (auto) Cancelled Absolute Nucleated RBC Cancelled Nucleated RBC % (auto) Cancelled Sodium 137 140 Potassium 3.1 L 3.2 L Chloride 98 100 Carbon Dioxide 30 H 33 H Anion Gap 12 10 L BUN 21 H 21 H Creatinine 1.22 1.00 Estim Creat Clear Calc 161.5 197.1 Estimated GFR > 60 > 60 Random Glucose 103 97 Calcium 10.0 9.8 Medications Medications Current Medications Acetaminophen (Acetaminophen 325 Mg Tablet) 650 mg PO Q6H PRN PRN Reason: Headache/Pain Mild Scale (1-3) Last Admin: 05/04/24 21:16 Dose: 650 mg Al Hydroxide/Mg Hydroxide (Magnesium Hydrox/Alum Hydrox 30 Ml Oral.Susp) 30 ml PO Q6H PRN PRN Reason: Heartburn/Nausea Albuterol Sulfate (Albuterol Sulfate 90 Mcg 8 Gm Inhaler) 2 puff INHALE RQ4H PRN PRN Reason: Shortness Of Breath Last Admin: 05/05/24 06:03 Dose: 2 puff Amphetamine/Dextroamphetamine (Amphetamine Mixed Salts 10 Mg Tablet) 10 mg PO DAILY@1500 [facility] Last Admin: 05/04/24 15:23 Dose: 10 mg Amphetamine/Dextroamphetamine (Dextroamphetamine/Amphetamine Xr 10 Mg Cap.Er.24h) 20 mg PO DAILY [facility] Last Admin: 05/04/24 08:45 Dose: 20 mg Buprenorphine/Naloxone (Buprenorphine/Naloxone 8/2 Mg Film) 1 film BUCCAL TID [facility] Last Admin: 05/04/24 21:16 Dose: 1 film Bupropion HCl (Bupropion Hcl Xl 300 Mg Tab.Er.24h) 300 mg PO DAILY [facility] Last Admin: 05/04/24 08:45 Dose: 300 mg Clonidine HCl (Clonidine Hcl 0.2 Mg Tablet) 0.2 mg PO TID PRN; Protocol PRN Reason: anxiety Last Admin: 05/04/24 16:59 Dose: 0.2 mg Cyclobenzaprine HCl (Cyclobenzaprine Hcl 10 Mg Tablet) 10 mg PO TID PRN PRN Reason: Muscle Spasm Last Admin: 05/04/24 21:17 Dose: 10 mg Doxycycline Monohydrate (Doxycycline Monohydrate 100 Mg Capsule) 100 mg PO Q12H [facility] Stop: 05/10/24 05:01 Last Admin: 05/05/24 05:41 Dose: 100 mg Gabapentin (Gabapentin 400 Mg Capsule) 800 mg PO TID [facility] Last Admin: 05/04/24 21:16 Dose: 800 mg Hydroxyzine HCl (Hydroxyzine Hcl 50 Mg Tablet) 50 mg PO Q8H PRN PRN Reason: anxiety/restlessness Last Admin: 05/04/24 21:17 Dose: 50 mg Lactic Acid (Ammonium Lactate 12 % Lotion 226 Gm Bottle) 1 appl TOPICAL BID [facility]; Protocol Last Admin: 05/04/24 21:19 Dose: 1 appl Lamotrigine (Lamotrigine 25 Mg Tablet) 325 mg PO BEDTIME [facility] Last Admin: 05/04/24 21:19 Dose: 325 mg Lorazepam (Lorazepam 1 Mg Tablet) 1 mg PO Q8H PRN PRN Reason: anxiety/restlessness Last Admin: 05/04/24 21:17 Dose: 1 mg Magnesium Hydroxide (Milk Of Magnesia 30 Ml Oral.Susp) 30 ml PO DAILY PRN PRN Reason: Constipation Melatonin (Melatonin 3 Mg Tablet) 9 mg PO BEDTIME PRN PRN Reason: Insomnia Last Admin: 05/04/24 21:17 Dose: 9 mg Metformin HCl (Metformin Hcl 500 Mg Tablet) 500 mg PO BIDWM [facility] Last Admin: 05/04/24 16:59 Dose: 500 mg Omeprazole (Omeprazole 40 Mg Capsule.Dr) 40 mg PO BID@0630,1630 [facility] Last Admin: 05/05/24 06:04 Dose: 40 mg Prazosin HCl (Prazosin Hcl 5 Mg Capsule) 10 mg PO BEDTIME [facility]; Protocol Last Admin: 05/04/24 21:16 Dose: 10 mg Quetiapine Fumarate (Quetiapine Fumarate 400 Mg Tablet) 400 mg PO BEDTIME [facility] Last Admin: 05/04/24 21:16 Dose: 400 mg Quetiapine Fumarate (Quetiapine Fumarate 50 Mg Tablet) 50 mg PO Q6H PRN PRN Reason: severe anxiety/agitation Last Admin: 05/04/24 21:17 Dose: 50 mg Torsemide (Torsemide 20 Mg Tablet) 40 mg PO BID@0800,1500 [facility]; Protocol Last Admin: 05/04/24 15:23 Dose: 40 mg Trolamine Salicylate (Trolamine Salicylate 10 % Cream 85 Gm Tube) 1 appl TOPICAL BID PRN; Protocol PRN Reason: Pain, Moderate(Pain Scale 4-6) Last Admin: 05/01/24 22:39 Dose: 1 appl Allergies Allergies Allergy/AdvReac Type Severity Reaction Status Date / Time haloperidol [From Haldol] Allergy Unknown Verified 02/25/24 19:01 trazodone AdvReac restless Verified 02/26/24 17:14 leg syndrome Assessment & Plan Assessment & Plan (1) Bipolar disorder: Status: Acute Code(s): F31.9 - Bipolar disorder, unspecified (2) Personality disorder: Status: Acute Code(s): F60.9 - Personality disorder, unspecified (3) Polysubstance use disorder: Status: Acute Code(s): F19.90 - Other psychoactive substance use, unspecified, uncomplicated (4) ADHD: Status: Acute Code(s): F90.9 - Attention-deficit hyperactivity disorder, unspecified type Plan HPI_ 39 yo MWM presents after having visited father Friday who has stage 4 cancer and is in a protocol at [facility]- feeling si about possibly not seeing him again with thoughts to jump of bridge- Also reports he has access to fire arms (knows gang people) and homicidal toward [facility] who didn't do more for his dad- Reports homeless and went to live with her mother , he doesn't get along with mother in law so can't go there- Describes chaotic hospital [facility]- feeling he needs some kind of skilled nursing psychiatric hospitalization. He does have wrap around care at [facility] who rxs meds, has casemanager which he will do release for - pcp gets consultation for psych meds and suboxone care- 05/01/24 - resume treatment get release for healthcare provider casemanager- 05/02: I have borderline personality disorder - TElls me story about why he hates his mother in law- betrayal she did to her daugther by sec 12 her years ago - saw the pain in 's eyes PT reports meds restarted are fine- continues to think he needs technician terminal and repeater hospitalization [place] and casemanager- which is more than many have here- suspect recurrent homelessness and substance use with threats of si behind recurrent hospitalizations and desire for skilled nursing- Also father in stage 4 cancer, saw wed- and still homicidal with supposed access to guns toward father's [facility] drs. 05/03: Keeping to self. Patient reports having a lot of anxiety . Patient stated, it is my dad's birthday and he is dying of cancer and I can't be with him. My dad encouraged me to go get help because I was having thoughts of hurting his doctors because they were not helping him . Patient reports homicidal ideation towards his father's physicians. Patient stated, I was thinking about killing his doctors and then killing myself. I wouldn't be worried about going to skilled nursing because I would be . Patient reports he is interested in some kind of long-term psychiatric care where I can't hurt myself or anyone else . He reports his current medications help his mood. Patient denies AH/VH. We will need to obtain collateral from outpatient providers. 05/04: Observed sitting out in milieu. Social with select peers. Met with patient and Dr. Harris present. Patient reports feeling similar to yesterday. He reports moments of crying randomly for hours . Patient continues to report suicidal ideation and homicidal ideation. He reports homicidal ideation towards the [facility] doctors who would not treat my dad . When discussing future treatment options, patient stated, I don't give a fuck right now. I'm just tired of everything . When asked if T/W could speak to family, patient declined. Increase Lamictal to 325mg PO bedtime Decrease hydroxyzine to 50mg Q8hr PRN Time Spent With Patient Time: Total time managing care of this patient today ____ minutes.
[2024-05-05 09:11] VITALS: BP 136/63; PULSE 80; RESP 16; TEMP 36.5; O2SAT 96
[2024-05-05] MEDS: metFORMIN HCl 500 MG TABLET PO ×2 (09:17→17:09)
[2024-05-05] MEDS: Dextroamphetamine/Amphetamine XR 10 MG CAP.ER.24H 20 MG PO (09:17)
[2024-05-05] MEDS: Torsemide 20 MG TABLET 40 MG PO ×2 (09:18→14:49)
[2024-05-05] MEDS: buPROPion HCl XL 300 MG TAB.ER.24H PO (09:18)
[2024-05-05] MEDS: Gabapentin 400 MG CAPSULE 800 MG PO ×3 (09:18→22:03)
[2024-05-05] MEDS: Acetaminophen 325 MG TABLET 650 MG PO ×2 (09:19→15:47)
[2024-05-05] MEDS: hydrOXYzine HCL 50 MG TABLET PO ×2 (09:19→19:26)
[2024-05-05] MEDS: Buprenorphine/Naloxone 8/2 mg FILM 1 FILM BUCCAL ×3 (09:20→22:05)
[2024-05-05] MEDS: Cyclobenzaprine HCl 10 MG TABLET PO ×3 (09:20→22:03)
[2024-05-05] MEDS: LORazepam 1 MG TABLET PO ×2 (12:44→19:53)
[2024-05-05 14:48] VITALS: BP 142/79; PULSE 107
[2024-05-05] MEDS: Amphetamine Mixed Salts 10 MG TABLET PO (14:49)
[2024-05-05 19:25] VITALS: BP 169/86; PULSE 97
[2024-05-05] MEDS: cloNIDine HCL 0.2 MG TABLET PO (19:26)
--- NOTE | 2024-05-05 19:56 | PC.NURSE ---
Dr. Krueger allowed patient to receive Ativan earlier than scheduled via [place] [employer].
[2024-05-05 21:59] VITALS: BP 152/84; PULSE 88; RESP 18; O2SAT 97
[2024-05-05] MEDS: Melatonin 3 MG TABLET 9 MG PO (22:01)
[2024-05-05] MEDS: Prazosin HCL 5 MG CAPSULE 10 MG PO (22:01)
[2024-05-05] MEDS: QUEtiapine Fumarate 50 MG TABLET PO (22:02)
[2024-05-05] MEDS: QUEtiapine Fumarate 400 MG TABLET PO (22:02)
[2024-05-05] MEDS: Acetaminophen 325 MG TABLET 975 MG PO (22:04)
[2024-05-05] MEDS: Trolamine Salicylate 10 % Cream 85 GM TUBE 1 APPL TOPICAL (22:06)
--- NOTE | 2024-05-05 22:58 | P.PNPSI_ITS ---
Subjective Subjective Date of Service: 05/05/24 Reason For Visit: unspecified bipolar d/o Interim History: irritable, gruff. upset 3 meds have been changed without his approval or consultation. c/o pain in knees. agreeable to schedule tylenol and aspercreme to knees. will discuss other thoughts re meds tomorrow with attending. future- oriented, talking about losing weight and possibly taking ozempic or having lap banding. seems to brighten at the prospect of losing weight. per staff, labile. taking meds, attending groups. refusing walker from PT, says he wants a cane. irritable. dep 10 anx 9. visible. wants CSS bed. slept 7 hours. Mental Status Exam Mental Status Exam Narrative: Pt is alert and oriented; behavior is cooperative, guarded; dressed in casual attire; mood is described as depressed ; eye contact appropriate; Speech is normal rate, volume and not pressured; thought process is organized; Thought content is without delusions or paranoia; no SI/HI/AVH expressed. Diagnostics Vital Signs (24Hr): Vital Signs - 24 hr 05/05/24 09:11 05/05/24 14:48 05/05/24 19:25 Temperature 97.7 F Pulse Rate 80 107 H 97 Respiratory Rate 16 Blood Pressure 136/63 142/79 H 169/86 H Pulse Oximetry 96 Oxygen Delivery Method Room Air 05/05/24 21:59 Temperature Pulse Rate 88 Respiratory Rate 18 Blood Pressure 152/84 H Pulse Oximetry 97 Oxygen Delivery Method Room Air BMI result Body Mass Index 69.2 Labs 05/03/24 17:20 05/04/24 07:55 Labs: Laboratory Results - last 48 hr 05/03/24 05/04/24 17:20 07:55 WBC Cancelled RBC Cancelled Hgb Cancelled Hct Cancelled MCV Cancelled MCH Cancelled MCHC Cancelled RDW Cancelled Plt Count Cancelled MPV Cancelled Immature Gran % (Auto) Cancelled Neut % (Auto) Cancelled Lymph % (Auto) Cancelled [place] % (Auto) Cancelled Eos % (Auto) Cancelled Baso % (Auto) Cancelled Lymph # (Auto) Cancelled [place] # (Auto) Cancelled Eos # (Auto) Cancelled Baso # (Auto) Cancelled Abs Immat Gran (auto) Cancelled Absolute Neuts (auto) Cancelled Absolute Nucleated RBC Cancelled Nucleated RBC % (auto) Cancelled Sodium 140 Potassium 3.2 L Chloride 100 Carbon Dioxide 33 H Anion Gap 10 L BUN 21 H Creatinine 1.00 Estim Creat Clear Calc 197.1 Estimated GFR > 60 Random Glucose 97 Calcium 9.8 Medications Medications Current Medications Acetaminophen (Acetaminophen 325 Mg Tablet) 975 mg PO QID [facility] Last Admin: 05/05/24 22:04 Dose: 975 mg Al Hydroxide/Mg Hydroxide (Magnesium Hydrox/Alum Hydrox 30 Ml Oral.Susp) 30 ml PO Q6H PRN PRN Reason: Heartburn/Nausea Albuterol Sulfate (Albuterol Sulfate 90 Mcg 8 Gm Inhaler) 2 puff INHALE RQ4H PRN PRN Reason: Shortness Of Breath Last Admin: 05/05/24 19:28 Dose: 2 puff Amphetamine/Dextroamphetamine (Amphetamine Mixed Salts 10 Mg Tablet) 10 mg PO DAILY@1500 [facility] Last Admin: 05/05/24 14:49 Dose: 10 mg Amphetamine/Dextroamphetamine (Dextroamphetamine/Amphetamine Xr 10 Mg Cap.Er.24h) 20 mg PO DAILY [facility] Last Admin: 05/05/24 09:17 Dose: 20 mg Buprenorphine/Naloxone (Buprenorphine/Naloxone 8/2 Mg Film) 1 film BUCCAL TID [facility] Last Admin: 05/05/24 22:05 Dose: 1 film Bupropion HCl (Bupropion Hcl Xl 300 Mg Tab.Er.24h) 300 mg PO DAILY [facility] Last Admin: 05/05/24 09:18 Dose: 300 mg Clonidine HCl (Clonidine Hcl 0.2 Mg Tablet) 0.2 mg PO TID PRN; Protocol PRN Reason: anxiety Last Admin: 05/05/24 19:26 Dose: 0.2 mg Cyclobenzaprine HCl (Cyclobenzaprine Hcl 10 Mg Tablet) 10 mg PO TID PRN PRN Reason: Muscle Spasm Last Admin: 05/05/24 22:03 Dose: 10 mg Doxycycline Monohydrate (Doxycycline Monohydrate 100 Mg Capsule) 100 mg PO Q12H [facility] Stop: 05/10/24 05:01 Last Admin: 05/05/24 17:10 Dose: 100 mg Gabapentin (Gabapentin 400 Mg Capsule) 800 mg PO TID [facility] Last Admin: 05/05/24 22:03 Dose: 800 mg Hydroxyzine HCl (Hydroxyzine Hcl 50 Mg Tablet) 50 mg PO Q8H PRN PRN Reason: anxiety/restlessness Last Admin: 05/05/24 19:26 Dose: 50 mg Lactic Acid (Ammonium Lactate 12 % Lotion 226 Gm Bottle) 1 appl TOPICAL BID [facility]; Protocol Last Admin: 05/05/24 22:06 Dose: Not Given Lamotrigine 300 mg/ (Lamotrigine 25 mg) 325 mg PO BEDTIME [facility] Last Admin: 05/05/24 22:02 Dose: 325 mg Lorazepam (Lorazepam 1 Mg Tablet) 1 mg PO Q8H PRN PRN Reason: anxiety/restlessness Last Admin: 05/05/24 19:53 Dose: 1 mg Magnesium Hydroxide (Milk Of Magnesia 30 Ml Oral.Susp) 30 ml PO DAILY PRN PRN Reason: Constipation Melatonin (Melatonin 3 Mg Tablet) 9 mg PO BEDTIME PRN PRN Reason: Insomnia Last Admin: 05/05/24 22:01 Dose: 9 mg Metformin HCl (Metformin Hcl 500 Mg Tablet) 500 mg PO BIDWM [facility] Last Admin: 05/05/24 17:09 Dose: 500 mg Omeprazole (Omeprazole 40 Mg Capsule.Dr) 40 mg PO BID@0630,1630 [facility] Last Admin: 05/05/24 15:49 Dose: 40 mg Prazosin HCl (Prazosin Hcl 5 Mg Capsule) 10 mg PO BEDTIME [facility]; Protocol Last Admin: 05/05/24 22:01 Dose: 10 mg Quetiapine Fumarate (Quetiapine Fumarate 400 Mg Tablet) 400 mg PO BEDTIME [facility] Last Admin: 05/05/24 22:02 Dose: 400 mg Quetiapine Fumarate (Quetiapine Fumarate 50 Mg Tablet) 50 mg PO Q6H PRN PRN Reason: severe anxiety/agitation Last Admin: 05/05/24 22:02 Dose: 50 mg Torsemide (Torsemide 20 Mg Tablet) 40 mg PO BID@0800,1500 [facility]; Protocol Last Admin: 05/05/24 14:49 Dose: 40 mg Trolamine Salicylate (Trolamine Salicylate 10 % Cream 85 Gm Tube) 1 appl TOPICAL QID [facility]; Protocol Last Admin: 05/05/24 22:06 Dose: 1 appl Allergies Allergies Allergy/AdvReac Type Severity Reaction Status Date / Time haloperidol [From Haldol] Allergy Unknown Verified 02/25/24 19:01 trazodone AdvReac restless Verified 02/26/24 17:14 leg syndrome Assessment & Plan Assessment & Plan (1) Bipolar disorder: Status: Acute Code(s): F31.9 - Bipolar disorder, unspecified (2) Personality disorder: Status: Acute Code(s): F60.9 - Personality disorder, unspecified (3) Polysubstance use disorder: Status: Acute Code(s): F19.90 - Other psychoactive substance use, unspecified, uncomplicated (4) ADHD: Status: Acute Code(s): F90.9 - Attention-deficit hyperactivity disorder, unspecified type Plan HPI_ 39 yo MWM presents after having visited father Friday who has stage 4 cancer and is in a protocol at [facility]- feeling si about possibly not seeing him again with thoughts to jump of bridge- Also reports he has access to fire arms (knows gang people) and homicidal toward [place] who didn't do more for his dad- Reports homeless and went to live with her mother , he doesn't get along with mother in law so can't go there- Describes chaotic hospital to hospital ER to [facility] to hospital for psychiatric care- feeling he needs some kind of shelter psychiatric hospitalization. He does have wrap around care at [facility] who rxs meds, has casemanager which he will do release for - pcp gets consultation for psych meds and suboxone care- 05/01/24 - resume treatment get release for healthcare provider casemanager- 05/02: I have borderline personality disorder - TElls me story about why he hates his mother in law- betrayal she did to her daugther by sec 12 her years ago - saw the pain in 's eyes PT reports meds restarted are fine- continues to think he needs intermediate project manager hospitalization [place] with pcp and casemanager- which is more than many have here- suspect recurrent homelessness and substance use with threats of si behind recurrent hospitalizations and desire for intermediate project manager- Also father in stage 4 cancer, saw wed- and still homicidal with supposed access to guns toward father's [facility] drs. 05/03: Keeping to self. Patient reports having a lot of anxiety . Patient stated, it is my dad's birthday and he is dying of cancer and I can't be with him. My dad encouraged me to go get help because I was having thoughts of hurting his doctors because they were not helping him . Patient reports homicidal ideation towards his father's physicians. Patient stated, I was thinking about killing his doctors and then killing myself. I wouldn't be worried about going to [facility] because I would be . Patient reports he is interested in some kind of long-term psychiatric care where I can't hurt myself or anyone else . He reports his current medications help his mood. Patient denies AH/VH. We will need to obtain collateral from outpatient providers. 05/04: Observed sitting out in milieu. Social with select peers. Met with patient and Dr. Harris present. Patient reports feeling similar to yesterday. He reports moments of crying randomly for hours . Patient continues to report suicidal ideation and homicidal ideation. He reports homicidal ideation towards the [place] who would not treat my dad . When discussing future treatment options, patient stated, I don't give a fuck right now. I'm just tired of everything . When asked if T/W could speak to family, patient declined. Increase Lamictal to 325mg PO bedtime Decrease hydroxyzine to 50mg Q8hr PRN 05/05: irritable and negativistic, brightens at discussion of potential weight loss, discusses options he is considering for the future. scheduled tylenol 975 mg QID, aspercreme QID to knees. otherwise continue current mgmt. Reason for continued inpatient stay Substantial Risk for: inability to function and rapid decompensation Time Spent With Patient Time: Total time managing care of this patient today __35__ minutes.
--- NOTE | 2024-05-06 00:43 | PC.NURSE ---
Dr. Krueger authorized via [place] [employer] to allow [facility] to receive his albuterol inhaler PO prn early due to shortness of breath.
[2024-05-06] MEDS: Doxycycline Monohydrate 100 MG CAPSULE PO ×2 (06:04→16:26)
[2024-05-06] MEDS: Omeprazole 40 MG CAPSULE.DR PO ×2 (06:04→16:26)
[2024-05-06] MEDS: Albuterol Sulfate 90 MCG 8 GM INHALER 2 PUFF INHALE ×4 (07:47→21:55)
[2024-05-06 08:00] VITALS: BP 140/78; PULSE 79; RESP 12; TEMP 36.6; O2SAT 96
[2024-05-06] MEDS: Cyclobenzaprine HCl 10 MG TABLET PO ×2 (08:36→21:58)
[2024-05-06] MEDS: Buprenorphine/Naloxone 8/2 mg FILM 1 FILM BUCCAL ×3 (08:36→22:02)
[2024-05-06] MEDS: Dextroamphetamine/Amphetamine XR 10 MG CAP.ER.24H 20 MG PO (08:36)
[2024-05-06] MEDS: Acetaminophen 325 MG TABLET 975 MG PO ×3 (08:36→21:55)
[2024-05-06] MEDS: LORazepam 1 MG TABLET PO ×3 (08:36→21:57)
[2024-05-06] MEDS: buPROPion HCl XL 300 MG TAB.ER.24H PO (08:36)
[2024-05-06] MEDS: Gabapentin 400 MG CAPSULE 800 MG PO ×3 (08:36→21:57)
[2024-05-06] MEDS: Torsemide 20 MG TABLET 40 MG PO ×2 (08:42→15:09)
[2024-05-06] MEDS: metFORMIN HCl 500 MG TABLET PO ×2 (08:42→16:26)
[2024-05-06 10:35] LABS: Anion Gap 8 (12-20); Blood Urea Nitrogen 18 mg/dL (9-16); Calcium 9.7 mg/dL (8.4-10.2); Carbon Dioxide 32 mmol/L (22-29); Chloride 103 mmol/L (96-108); Estimated Glomerular Filt Rate > 60; Glucose Random 92 mg/dL (60-115); Potassium 3.4 mmol/L (3.3-5.1); Sodium 140 mmol/L (135-145)
--- NOTE | 2024-05-06 13:40 | P.PNPSI_ITS ---
Subjective Subjective Date of Service: 05/06/24 Reason For Visit: unspecified bipolar d/o Subjective Notes: Conditional Voluntary Interim History: Reviewed with Dr. Harris. Keeping to self. In room most of morning. Patient continues to report feeling depressed; patient stated, I talked to my dad and the cancer spread more . Patient continues to report suicidal ideation and reports that is not decreased at all . He reports homicidal ideation; patient stated, I'm thinking even more of harming the doctors at the [place] because my dad spoke to [facility] and [facility] said [facility] for him . Medication Compliance: Yes Side effects from medications: No Attending Groups: No Review of Systems Constitutional: Reports as per HPI Eyes: Reports as per HPI Reports as per HPI Cardiovascular: Reports as per HPI Respiratory: Reports as per HPI Gastrointestinal: Reports as per HPI Genitourinary: Reports as per HPI Musculoskeletal: Reports as per HPI Skin/Breast: Reports as per HPI Reports as per HPI Psychiatric: Reports as per HPI Endocrine: Reports as per HPI Hematologic/Lymphatic: Reports as per HPI Allergic/Immunologic: Reports as per HPI Diagnostics Vital Signs (24Hr): Vital Signs - 24 hr 05/05/24 14:48 05/05/24 19:25 05/05/24 21:59 Temperature Pulse Rate 107 H 97 88 Respiratory Rate 18 Blood Pressure 142/79 H 169/86 H 152/84 H Pulse Oximetry 97 Oxygen Delivery Method Room Air 05/06/24 08:00 Temperature 97.8 F Pulse Rate 79 Respiratory Rate 12 Blood Pressure 140/78 H Pulse Oximetry 96 Oxygen Delivery Method Room Air BMI result Body Mass Index 69.2 Labs 05/03/24 17:20 05/06/24 10:03 Labs: Laboratory Results - last 48 hr 05/06/24 10:03 Sodium 140 Potassium 3.4 Chloride 103 Carbon Dioxide 32 H Anion Gap 8 L BUN 18 H Creatinine 0.88 Estim Creat Clear Calc 224.0 Estimated GFR > 60 Random Glucose 92 Calcium 9.7 Medications Medications Current Medications Acetaminophen (Acetaminophen 325 Mg Tablet) 975 mg PO QID COUNT INCLUDES [facility] Last Admin: 05/06/24 08:36 Dose: 975 mg Al Hydroxide/Mg Hydroxide (Magnesium Hydrox/Alum Hydrox 30 Ml Oral.Susp) 30 ml PO Q6H PRN PRN Reason: Heartburn/Nausea Albuterol Sulfate (Albuterol Sulfate 90 Mcg 8 Gm Inhaler) 2 puff INHALE RQ4H PRN PRN Reason: Shortness Of Breath Last Admin: 05/06/24 07:47 Dose: 2 puff Amphetamine/Dextroamphetamine (Amphetamine Mixed Salts 10 Mg Tablet) 10 mg PO DAILY@1500 COUNT INCLUDES [facility] Last Admin: 05/05/24 14:49 Dose: 10 mg Amphetamine/Dextroamphetamine (Dextroamphetamine/Amphetamine Xr 10 Mg Cap.Er.24h) 20 mg PO DAILY COUNT INCLUDES [facility] Last Admin: 05/06/24 08:36 Dose: 20 mg Buprenorphine/Naloxone (Buprenorphine/Naloxone 8/2 Mg Film) 1 film BUCCAL TID COUNT INCLUDES THE [facility] Last Admin: 05/06/24 08:36 Dose: 1 film Bupropion HCl (Bupropion Hcl Xl 300 Mg Tab.Er.24h) 300 mg PO DAILY COUNT INCLUDES [facility] Last Admin: 05/06/24 08:36 Dose: 300 mg Clonidine HCl (Clonidine Hcl 0.2 Mg Tablet) 0.2 mg PO TID PRN; Protocol PRN Reason: anxiety Last Admin: 05/05/24 19:26 Dose: 0.2 mg Cyclobenzaprine HCl (Cyclobenzaprine Hcl 10 Mg Tablet) 10 mg PO TID PRN PRN Reason: Muscle Spasm Last Admin: 05/06/24 08:36 Dose: 10 mg Doxycycline Monohydrate (Doxycycline Monohydrate 100 Mg Capsule) 100 mg PO Q12H COUNT INCLUDES THE [facility] Stop: 05/10/24 05:01 Last Admin: 05/06/24 06:04 Dose: 100 mg Gabapentin (Gabapentin 400 Mg Capsule) 800 mg PO TID COUNT INCLUDES [facility] Last Admin: 05/06/24 08:36 Dose: 800 mg Hydroxyzine HCl (Hydroxyzine Hcl 50 Mg Tablet) 50 mg PO Q8H PRN PRN Reason: anxiety/restlessness Last Admin: 05/05/24 19:26 Dose: 50 mg Lactic Acid (Ammonium Lactate 12 % Lotion 226 Gm Bottle) 1 appl TOPICAL BID COUNT INCLUDES THE [facility]; Protocol Last Admin: 05/06/24 08:44 Dose: Not Given Lamotrigine 300 mg/ (Lamotrigine 25 mg) 325 mg PO BEDTIME COUNT INCLUDES THE [facility] Last Admin: 05/05/24 22:02 Dose: 325 mg Lorazepam (Lorazepam 1 Mg Tablet) 1 mg PO Q8H PRN PRN Reason: anxiety/restlessness Last Admin: 05/06/24 08:36 Dose: 1 mg Magnesium Hydroxide (Milk Of Magnesia 30 Ml Oral.Susp) 30 ml PO DAILY PRN PRN Reason: Constipation Melatonin (Melatonin 3 Mg Tablet) 9 mg PO BEDTIME PRN PRN Reason: Insomnia Last Admin: 05/05/24 22:01 Dose: 9 mg Metformin HCl (Metformin Hcl 500 Mg Tablet) 500 mg PO BIDWM [facility] Last Admin: 05/06/24 08:42 Dose: 500 mg Omeprazole (Omeprazole 40 Mg Capsule.Dr) 40 mg PO BID@0630,1630 COUNT INCLUDES [facility] Last Admin: 05/06/24 06:04 Dose: 40 mg Prazosin HCl (Prazosin Hcl 5 Mg Capsule) 10 mg PO BEDTIME COUNT INCLUDES [facility]; Protocol Last Admin: 05/05/24 22:01 Dose: 10 mg Quetiapine Fumarate (Quetiapine Fumarate 400 Mg Tablet) 400 mg PO BEDTIME [facility] Last Admin: 05/05/24 22:02 Dose: 400 mg Quetiapine Fumarate (Quetiapine Fumarate 50 Mg Tablet) 50 mg PO Q6H PRN PRN Reason: severe anxiety/agitation Last Admin: 05/05/24 22:02 Dose: 50 mg Torsemide (Torsemide 20 Mg Tablet) 40 mg PO BID@0800,1500 [facility]; Protocol Last Admin: 05/06/24 08:42 Dose: 40 mg Trolamine Salicylate (Trolamine Salicylate 10 % Cream 85 Gm Tube) 1 appl TOPICAL QID COUNT INCLUDES [facility]; Protocol Last Admin: 05/06/24 08:50 Dose: Not Given Allergies Allergies Allergy/AdvReac Type Severity Reaction Status Date / Time haloperidol [From Haldol] Allergy Unknown Verified 02/25/24 19:01 trazodone AdvReac restless Verified 02/26/24 17:14 leg syndrome Assessment & Plan Assessment & Plan (1) Bipolar disorder: Status: Acute Code(s): F31.9 - Bipolar disorder, unspecified (2) Personality disorder: Status: Acute Code(s): F60.9 - Personality disorder, unspecified (3) Polysubstance use disorder: Status: Acute Code(s): F19.90 - Other psychoactive substance use, unspecified, uncomplicated (4) ADHD: Status: Acute Code(s): F90.9 - Attention-deficit hyperactivity disorder, unspecified type Plan HPI_ 39 yo MWM presents after having visited father Friday who has stage 4 cancer and is in a protocol at [facility]- feeling si about possibly not seeing him again with thoughts to jump of bridge- Also reports he has access to fire arms (knows gang people) and homicidal toward [facility] dr[facility] who didn't do more for his dad- Reports homeless and went to live with her mother , he doesn't get along with mother in law so can't go there- Describes chaotic hospital [facility]- feeling he needs some kind of termite control technician psychiatric hospitalization. He does have wrap around care at [facility] who rxs meds, has casemanager which he will do release for - pcp gets consultation for psych meds and suboxone care- 05/01/24 - resume treatment get release for healthcare provider casemanager- 05/02: I have borderline personality disorder - TElls me story about why he hates his mother in law- betrayal she did to her daugther by sec 12 her years ago - saw the pain in 's eyes PT reports meds restarted are fine- continues to think he needs long-term hospitalization [place] casemanager- which is more than many have here- suspect recurrent homelessness and substance use with threats of si behind recurrent hospitalizations and desire for termite control technician- Also father in stage 4 cancer, saw wed- and still homicidal with supposed access to guns toward father's [facility] drs. 05/03: Keeping to self. Patient reports having a lot of anxiety . Patient stated, it is my dad's birthday and he is dying of cancer and I can't be with him. My dad encouraged me to go get help because I was having thoughts of hurting his doctors because they were not helping him . Patient reports homicidal ideation towards his father's physicians. Patient stated, I was thinking about killing his doctors and then killing myself. I wouldn't be worried about going to [facility] because I would be . Patient reports he is interested in some kind of long-term psychiatric care where I can't hurt myself or anyone else . He reports his current medications help his mood. Patient denies AH/VH. We will need to obtain collateral from outpatient providers. 05/04: Observed sitting out in milieu. Social with select peers. Met with patient and Dr. Harris present. Patient reports feeling similar to yesterday. He reports moments of crying randomly for hours . Patient continues to report suicidal ideation and homicidal ideation. He reports homicidal ideation towards the [place] doctors who would not treat my dad . When discussing future treatment options, patient stated, I don't give a fuck right now. I'm just tired of everything . When asked if T/W could speak to family, patient declined. Increase Lamictal to 325mg PO bedtime Decrease hydroxyzine to 50mg Q8hr PRN 05/05: irritable and negativistic, brightens at discussion of potential weight loss, discusses options he is considering for the future. scheduled tylenol 975 mg QID, aspercreme QID to knees. otherwise continue current mgmt. 05/06: Keeping to self. In room most of morning. Patient continues to report feeling depressed; patient stated, I talked to my dad and the cancer spread more . Patient continues to report suicidal ideation and reports that is not decreased at all . He reports homicidal ideation; patient stated, I'm thinking even more of harming the doctors at the [place] because my [facility] . Continue current treatment plan. Patient educated on: diagnosis, medication risk/benefits and therapeutic strategies Reason for continued inpatient stay Substantial Risk for: harm to self, harm to others and med/psych decompensation Time Spent With Patient Time: Total time managing care of this patient today _20___ minutes.
[2024-05-06 15:09] VITALS: BP 161/76
[2024-05-06] MEDS: Amphetamine Mixed Salts 10 MG TABLET PO (15:10)
[2024-05-06] MEDS: hydrOXYzine HCL 50 MG TABLET PO (16:30)
[2024-05-06] MEDS: cloNIDine HCL 0.2 MG TABLET PO ×2 (16:30→21:58)
[2024-05-06 20:00] VITALS: BP 164/83; PULSE 90; RESP 16; TEMP 36.8; O2SAT 96
[2024-05-06] MEDS: Melatonin 3 MG TABLET 9 MG PO (22:00)
[2024-05-06] MEDS: QUEtiapine Fumarate 400 MG TABLET PO (22:00)
[2024-05-06] MEDS: Prazosin HCL 5 MG CAPSULE 10 MG PO (22:01)
[2024-05-06] MEDS: QUEtiapine Fumarate 50 MG TABLET PO (22:02)
[2024-05-07] MEDS: Omeprazole 40 MG CAPSULE.DR PO ×2 (06:10→17:53)
[2024-05-07] MEDS: Doxycycline Monohydrate 100 MG CAPSULE PO ×2 (06:10→17:53)
[2024-05-07 09:23] VITALS: BP 143/71; PULSE 82; RESP 20; TEMP 36.9; O2SAT 93
[2024-05-07] MEDS: metFORMIN HCl 500 MG TABLET PO ×2 (09:24→17:52)
[2024-05-07] MEDS: Torsemide 20 MG TABLET 40 MG PO ×2 (09:25→14:58)
[2024-05-07] MEDS: Dextroamphetamine/Amphetamine XR 10 MG CAP.ER.24H 20 MG PO (09:25)
[2024-05-07] MEDS: Gabapentin 400 MG CAPSULE 800 MG PO ×3 (09:26→22:39)
[2024-05-07] MEDS: buPROPion HCl XL 300 MG TAB.ER.24H PO (09:26)
[2024-05-07] MEDS: Acetaminophen 325 MG TABLET 975 MG PO ×4 (09:27→22:40)
[2024-05-07] MEDS: Buprenorphine/Naloxone 8/2 mg FILM 1 FILM BUCCAL ×3 (09:28→22:44)
[2024-05-07] MEDS: Albuterol Sulfate 90 MCG 8 GM INHALER 2 PUFF INHALE ×4 (09:49→22:38)
[2024-05-07] MEDS: LORazepam 1 MG TABLET PO ×2 (13:21→19:58)
[2024-05-07 13:22] VITALS: BP 140/64
[2024-05-07] MEDS: cloNIDine HCL 0.2 MG TABLET PO ×2 (13:22→22:40)
--- NOTE | 2024-05-07 14:15 | HO.PSYCHPN ---
Subjective Subjective Date of Service: 05/07/24 Reason For Visit: unspecified bipolar d/o Subjective Notes: Conditional Voluntary Interim History: Reviewed with Dr. Harris. Keeping to self. Patient continues to report feeling depressed and hopeless. He continues to report suicidal ideation and homicidal ideation towards [place] doctors. Pt stated, I don't care if I would go to nursing home if I hurt them . Pt requesting increase in Ativan dose; prescription monitoring shows pt received: Ativan 0.5mg BID for 7 days on 04/09/24 from one provider and Ativan 1mg PO BID for 7 days from a different provider. No other record of Ativan prescription. Pt is currently on Ativan 1mg PO BID PRN; dose was not increased d/t pt's presenting sedated. Medication Compliance: Yes Side effects from medications: No Attending Groups: No Review of Systems Constitutional: Reports as per HPI Eyes: Reports as per HPI Reports as per HPI Cardiovascular: Reports as per HPI Respiratory: Reports as per HPI Gastrointestinal: Reports as per HPI Genitourinary: Reports as per HPI Musculoskeletal: Reports as per HPI Skin/Breast: Reports as per HPI Reports as per HPI Psychiatric: Reports as per HPI Endocrine: Reports as per HPI Hematologic/Lymphatic: Reports as per HPI Allergic/Immunologic: Reports as per HPI Mental Status Exam Mental Status Exam Narrative: Pt is alert and oriented; behavior is cooperative, guarded; dressed in casual attire; mood is described as depressed ; eye contact appropriate; Speech is normal rate, volume and not pressured; thought process is organized; Thought content is without delusions or paranoia; pt reports suicidal and homicial ideation. denies /. Diagnostics Vital Signs (24Hr): Vital Signs - 24 hr 05/06/24 15:09 05/06/24 20:00 05/07/24 09:23 Temperature 98.2 F 98.5 F Pulse Rate 90 82 Respiratory Rate 16 20 Blood Pressure 161/76 H 164/83 H 143/71 H Pulse Oximetry 96 93 Oxygen Delivery Method Room Air Room Air 05/07/24 13:22 Temperature Pulse Rate Respiratory Rate Blood Pressure 140/64 H Pulse Oximetry Oxygen Delivery Method BMI result Body Mass Index 69.2 Labs 05/03/24 17:20 05/06/24 10:03 Labs: Laboratory Results - last 48 hr 05/06/24 10:03 Sodium 140 Potassium 3.4 Chloride 103 Carbon Dioxide 32 H Anion Gap 8 L BUN 18 H Creatinine 0.88 Estim Creat Clear Calc 224.0 Estimated GFR > 60 Random Glucose 92 Calcium 9.7 Medications Medications Current Medications Acetaminophen (Acetaminophen 325 Mg Tablet) 975 mg PO QID [facility] Last Admin: 05/07/24 13:22 Dose: 975 mg Al Hydroxide/Mg Hydroxide (Magnesium Hydrox/Alum Hydrox 30 Ml Oral.Susp) 30 ml PO Q6H PRN PRN Reason: Heartburn/Nausea Albuterol Sulfate (Albuterol Sulfate 90 Mcg 8 Gm Inhaler) 2 puff INHALE RQ4H PRN PRN Reason: Shortness Of Breath Last Admin: 05/07/24 12:54 Dose: 2 puff Amphetamine/Dextroamphetamine (Amphetamine Mixed Salts 10 Mg Tablet) 10 mg PO DAILY@1500 [facility] Last Admin: 05/06/24 15:10 Dose: 10 mg Amphetamine/Dextroamphetamine (Dextroamphetamine/Amphetamine Xr 10 Mg Cap.Er.24h) 20 mg PO DAILY [facility] Last Admin: 05/07/24 09:25 Dose: 20 mg Buprenorphine/Naloxone (Buprenorphine/Naloxone 8/2 Mg Film) 1 film BUCCAL TID [facility] Last Admin: 05/07/24 09:28 Dose: 1 film Bupropion HCl (Bupropion Hcl Xl 300 Mg Tab.Er.24h) 300 mg PO DAILY [facility] Last Admin: 05/07/24 09:26 Dose: 300 mg Clonidine HCl (Clonidine Hcl 0.2 Mg Tablet) 0.2 mg PO TID PRN; Protocol PRN Reason: anxiety Last Admin: 05/07/24 13:22 Dose: 0.2 mg Cyclobenzaprine HCl (Cyclobenzaprine Hcl 10 Mg Tablet) 10 mg PO TID PRN PRN Reason: Muscle Spasm Last Admin: 05/06/24 21:58 Dose: 10 mg Doxycycline Monohydrate (Doxycycline Monohydrate 100 Mg Capsule) 100 mg PO Q12H [facility] Stop: 05/10/24 05:01 Last Admin: 05/07/24 06:10 Dose: 100 mg Gabapentin (Gabapentin 400 Mg Capsule) 800 mg PO TID [facility] Last Admin: 05/07/24 09:26 Dose: 800 mg Hydroxyzine HCl (Hydroxyzine Hcl 50 Mg Tablet) 50 mg PO Q8H PRN PRN Reason: anxiety/restlessness Last Admin: 05/06/24 16:30 Dose: 50 mg Lactic Acid (Ammonium Lactate 12 % Lotion 226 Gm Bottle) 1 appl TOPICAL BID [facility]; Protocol Last Admin: 05/07/24 09:29 Dose: Not Given Lamotrigine 300 mg/ (Lamotrigine 25 mg) 325 mg PO BEDTIME [facility] Last Admin: 05/06/24 21:59 Dose: 325 mg Lorazepam (Lorazepam 1 Mg Tablet) 1 mg PO BID PRN PRN Reason: Anxiety Last Admin: 05/07/24 13:21 Dose: 1 mg Magnesium Hydroxide (Milk Of Magnesia 30 Ml Oral.Susp) 30 ml PO DAILY PRN PRN Reason: Constipation Melatonin (Melatonin 3 Mg Tablet) 9 mg PO BEDTIME PRN PRN Reason: Insomnia Last Admin: 05/06/24 22:00 Dose: 9 mg Metformin HCl (Metformin Hcl 500 Mg Tablet) 500 mg PO BIDWM [facility] Last Admin: 05/07/24 09:24 Dose: 500 mg Omeprazole (Omeprazole 40 Mg Capsule.Dr) 40 mg PO BID@0630,1630 [facility] Last Admin: 05/07/24 06:10 Dose: 40 mg Prazosin HCl (Prazosin Hcl 5 Mg Capsule) 10 mg PO BEDTIME [facility]; Protocol Last Admin: 05/06/24 22:01 Dose: 10 mg Quetiapine Fumarate (Quetiapine Fumarate 400 Mg Tablet) 400 mg PO BEDTIME [facility] Last Admin: 05/06/24 22:00 Dose: 400 mg Quetiapine Fumarate (Quetiapine Fumarate 50 Mg Tablet) 50 mg PO Q6H PRN PRN Reason: severe anxiety/agitation Last Admin: 05/06/24 22:02 Dose: 50 mg Torsemide (Torsemide 20 Mg Tablet) 40 mg PO BID@0800,1500 [facility]; Protocol Last Admin: 05/07/24 09:25 Dose: 40 mg Trolamine Salicylate (Trolamine Salicylate 10 % Cream 85 Gm Tube) 1 appl TOPICAL QID [facility]; Protocol Last Admin: 05/07/24 14:07 Dose: Not Given Allergies Allergies Allergy/AdvReac Type Severity Reaction Status Date / Time haloperidol [From Haldol] Allergy Unknown Verified 02/25/24 19:01 trazodone AdvReac restless Verified 02/26/24 17:14 leg syndrome Assessment & Plan Assessment & Plan (1) Bipolar disorder: Status: Acute Code(s): F31.9 - Bipolar disorder, unspecified (2) Personality disorder: Status: Acute Code(s): F60.9 - Personality disorder, unspecified (3) Polysubstance use disorder: Status: Acute Code(s): F19.90 - Other psychoactive substance use, unspecified, uncomplicated (4) ADHD: Status: Acute Code(s): F90.9 - Attention-deficit hyperactivity disorder, unspecified type Plan HPI_ 39 yo MWM presents after having visited father Friday who has stage 4 cancer and is in a protocol at [facility]- feeling si about possibly not seeing him again with thoughts to jump of bridge- Also reports he has access to fire arms (knows gang people) and homicidal toward [facility] dr[facility] who didn't do more for his dad- Reports homeless and went to live with her mother , he doesn't get along with mother in law so can't go there- Describes chaotic hospital to hospital ER to [facility] to hospital for psychiatric care- feeling he needs some kind of exterminator psychiatric hospitalization. He does have wrap around care at [facility] who rxs meds, has casemanager which he will do release for - pcp gets consultation for psych meds and suboxone care- 05/01/24 - resume treatment get release for healthcare provider casemanager- 05/02: I have borderline personality disorder - TElls me story about why he hates his mother in law- betrayal she did to her daugther by sec 12 her years ago - saw the pain in 's eyes PT reports meds restarted are fine- continues to think he needs exterminator hospitalization [place] with pcp and casemanager- which is more than many have here- suspect recurrent homelessness and substance use with threats of si behind recurrent hospitalizations and desire for exterminator- Also father in stage 4 cancer, saw wed- and still homicidal with supposed access to guns toward father's [facility] drs. 05/03: Keeping to self. Patient reports having a lot of anxiety . Patient stated, it is my dad's birthday and he is dying of cancer and I can't be with him. My dad encouraged me to go get help because I was having thoughts of hurting his doctors because they were not helping him . Patient reports homicidal ideation towards his father's physicians. Patient stated, I was thinking about killing his doctors and then killing myself. I wouldn't be worried about going to [place] [facility] because I would be . Patient reports he is interested in some kind of long-term psychiatric care where I can't hurt myself or anyone else . He reports his current medications help his mood. Patient denies AH/VH. We will need to obtain collateral from outpatient providers. 05/04: Observed sitting out in milieu. Social with select peers. Met with patient and Dr. Harris present. Patient reports feeling similar to yesterday. He reports moments of crying randomly for hours . Patient continues to report suicidal ideation and homicidal ideation. He reports homicidal ideation towards the [place] doctors who would not treat my dad . When discussing future treatment options, patient stated, I don't give a fuck right now. I'm just tired of everything . When asked if T/W could speak to family, patient declined. Increase Lamictal to 325mg PO bedtime Decrease hydroxyzine to 50mg Q8hr PRN 05/05: irritable and negativistic, brightens at discussion of potential weight loss, discusses options he is considering for the future. scheduled tylenol 975 mg QID, aspercreme QID to knees. otherwise continue current mgmt. 05/06: Keeping to self. In room most of morning. Patient continues to report feeling depressed; patient stated, I talked to my dad and the cancer spread more . Patient continues to report suicidal ideation and reports that is not decreased at all . He reports homicidal ideation; patient stated, I'm thinking even more of harming the doctors at the [place] because my dad spoke to [facility] and they said [facility] could have [facility] more for him . Continue current treatment plan. 05/07: Keeping to self. Patient continues to report feeling depressed and hopeless. He continues to report suicidal ideation and homicidal ideation towards [place] doctors. Pt stated, I don't care if I would go to nursing home if I hurt them . Pt requesting increase in Ativan dose; prescription monitoring shows pt received: Ativan 0.5mg BID for 7 days on 04/09/24 from one provider and Ativan 1mg PO BID for 7 days from a different provider. No other record of Ativan prescription. Pt is currently on Ativan 1mg PO BID PRN; dose was not increased d/t pt's presenting sedated. Patient educated on: diagnosis and medication risk/benefits Reason for continued inpatient stay Substantial Risk for: harm to self, harm to others and med/psych decompensation Time Spent With Patient Time: Total time managing care of this patient today _20___ minutes.
[2024-05-07 14:58] VITALS: BP 137/65
[2024-05-07] MEDS: Amphetamine Mixed Salts 10 MG TABLET PO (14:58)
[2024-05-07] MEDS: hydrOXYzine HCL 50 MG TABLET PO ×2 (15:12→22:39)
--- NOTE | 2024-05-07 19:36 | PM.EVENT ---
Event Note Date of Service: 05/07/24 Event Note: Pt is a 39-year-old male with a PMH significant for?asthma, hepatitis C, peripheral neuropathy, GERD, chronic lower back and leg pain, chronic lower leg edema, polysubstance use disorder on Suboxone, obesity class 3 w/ BMI >65, and bipolar disorder who is admitted to [facility] psychiatry unit for increasing depression and SI. Medical consult for evaluation of SOB and inhaler use. Patient states that he has been intermittently short of breath that is not alleviated by albuterol inhaler, especially last night when he was having difficulty breathing while trying to sleep. States he used to have a nebulizer for many years at his own, but has not had 1 since being homeless. Currently denies shortness a breath or difficulty breathing. Physical examination reveals lungs CTA without wheezing. Will add on DuoNebs prn for SOB/wheezing not controlled by albuterol inhaler. Pt also complains of having his torsemide cut down from 80mg bid to 80mg daily. Reports reports LLE was improving on 80mg b.i.d., but has worsened once reduced to 80 mg daily. States he is only on only torsemide intermittently until LLE resolves. Review of records indicates that patient was discharged from [facility] on 80 mg b.i.d. Currently pt continues to have 2+ bilateral pitting edema. Can continue torsemide 80mg bid for the next few days and monitor for response. Will check BMP in 2-3 days time. Time Spent With Patient Time: Total time managing care of this patient today ____ minutes.
[2024-05-07 22:16] VITALS: BP 141/70; PULSE 97; RESP 18; TEMP 36.9; O2SAT 98
[2024-05-07] MEDS: Melatonin 3 MG TABLET 9 MG PO (22:38)
[2024-05-07] MEDS: Prazosin HCL 5 MG CAPSULE 10 MG PO (22:39)
[2024-05-07] MEDS: QUEtiapine Fumarate 400 MG TABLET PO (22:39)
[2024-05-07] MEDS: Cyclobenzaprine HCl 10 MG TABLET PO (22:40)
[2024-05-08] MEDS: Albuterol Sulfate 90 MCG 8 GM INHALER 2 PUFF INHALE ×4 (03:59→19:58)
[2024-05-08] MEDS: Doxycycline Monohydrate 100 MG CAPSULE PO ×2 (07:07→17:19)
[2024-05-08] MEDS: LORazepam 1 MG TABLET PO ×3 (07:08→18:36)
[2024-05-08] MEDS: Omeprazole 40 MG CAPSULE.DR PO ×2 (07:08→16:00)
[2024-05-08 08:37] LABS: Creatinine Clr Calc Pharmacy 199.1; Estimated Glomerular Filt Rate > 60
--- NOTE | 2024-05-08 09:03 | P.PNPSI_ITS ---
Subjective Subjective Date of Service: 05/08/24 Reason For Visit: unspecified bipolar d/o Interim History: The nurse gave me the Ativan in the morning and I take it at 1 PM. Now I only have one dose of Ativan left for the whole day. Focused on being on TID Ativan while he was being transferred from hospital to hospital for the past few weeks. Pt is currently on Ativan 1mg PO BID PRN; dose was not increased d/t pt's presenting sedated. He doesn't appear sedated. He remains anxious and depressed and doesn't feel he is getting better. He continues to report depression and anxiety. SI without intent. Review of Systems Review of Systems Increased shortness a breath Chronic sinus pain Chronic lower leg edema No chest pain/pressure, palpitations Denies fever, chills, nausea, vomiting, abdominal pain Constitutional: Reports as per HPI Eyes: Reports as per HPI Reports as per HPI Cardiovascular: Reports as per HPI Respiratory: Reports as per HPI Gastrointestinal: Reports as per HPI Genitourinary: Reports as per HPI Musculoskeletal: Reports as per HPI Skin/Breast: Reports as per HPI Reports as per HPI Psychiatric: Reports as per HPI Endocrine: Reports as per HPI Hematologic/Lymphatic: Reports as per HPI Allergic/Immunologic: Reports as per HPI Mental Status Exam Mental Status Exam Narrative: Pt is alert and oriented; behavior is cooperative, guarded; dressed in casual attire; mood is described as depressed ; eye contact appropriate; Speech is normal rate, volume and not pressured; thought process is organized; Thought content is without delusions or paranoia; pt reports suicidal and homicial ideation. denies AH/VH. Patient Appearance: Appropriate Patient Orientation: Person, Place, Time and Situation Level of Consciousness: Awake Patient Behavior: Appropriate, Talkative, Cooperative and Good Eye Contact Mood Description: Calm Affect Description: Appropriate Patient Cognition Impaired: No Speech Pattern: Clear Diagnostics Vital Signs (24Hr): Vital Signs - 24 hr 05/07/24 09:23 05/07/24 13:22 05/07/24 14:58 Temperature 98.5 F Pulse Rate 82 Respiratory Rate 20 Blood Pressure 143/71 H 140/64 H 137/65 Pulse Oximetry 93 Oxygen Delivery Method Room Air 05/07/24 22:16 Temperature 98.5 F Pulse Rate 97 Respiratory Rate 18 Blood Pressure 141/70 H Pulse Oximetry 98 Oxygen Delivery Method Room Air BMI result Body Mass Index 69.2 Labs 05/03/24 17:20 05/08/24 08:06 Labs: Laboratory Results - last 48 hr 05/06/24 05/08/24 10:03 08:06 Sodium 140 Potassium 3.4 Chloride 103 Carbon Dioxide 32 H Anion Gap 8 L BUN 18 H Creatinine 0.88 0.99 Estim Creat Clear Calc 224.0 199.1 Estimated GFR > 60 > 60 Random Glucose 92 Calcium 9.7 Medications Medications Current Medications Acetaminophen (Acetaminophen 325 Mg Tablet) 975 mg PO QID [facility] Last Admin: 05/07/24 22:40 Dose: 975 mg Al Hydroxide/Mg Hydroxide (Magnesium Hydrox/Alum Hydrox 30 Ml Oral.Susp) 30 ml PO Q6H PRN PRN Reason: Heartburn/Nausea Albuterol Sulfate (Albuterol Sulfate 90 Mcg 8 Gm Inhaler) 2 puff INHALE RQ4H PRN PRN Reason: Shortness Of Breath Last Admin: 05/08/24 07:21 Dose: 2 puff Albuterol/Ipratropium (Albuterol/Iprat 2.5/0.5mg 3 Ml Ampul.Neb) 3 ml INHALE RQ4H WHILE AWAKE PRN PRN Reason: Shortness of Breath/Wheezing Amphetamine/Dextroamphetamine (Amphetamine Mixed Salts 10 Mg Tablet) 10 mg PO DAILY@1500 [facility] Last Admin: 05/07/24 14:58 Dose: 10 mg Amphetamine/Dextroamphetamine (Dextroamphetamine/Amphetamine Xr 10 Mg Cap.Er.24h) 20 mg PO DAILY [facility] Last Admin: 05/07/24 09:25 Dose: 20 mg Buprenorphine/Naloxone (Buprenorphine/Naloxone 8/2 Mg Film) 1 film BUCCAL TID [facility] Last Admin: 05/07/24 22:44 Dose: 1 film Bupropion HCl (Bupropion Hcl Xl 300 Mg Tab.Er.24h) 300 mg PO DAILY [facility] Last Admin: 05/07/24 09:26 Dose: 300 mg Clonidine HCl (Clonidine Hcl 0.2 Mg Tablet) 0.2 mg PO TID PRN; Protocol PRN Reason: anxiety Last Admin: 05/07/24 22:40 Dose: 0.2 mg Cyclobenzaprine HCl (Cyclobenzaprine Hcl 10 Mg Tablet) 10 mg PO TID PRN PRN Reason: Muscle Spasm Last Admin: 05/07/24 22:40 Dose: 10 mg Doxycycline Monohydrate (Doxycycline Monohydrate 100 Mg Capsule) 100 mg PO Q12H [facility] Stop: 05/10/24 05:01 Last Admin: 05/08/24 07:07 Dose: 100 mg Gabapentin (Gabapentin 400 Mg Capsule) 800 mg PO TID [facility] Last Admin: 05/07/24 22:39 Dose: 800 mg Hydroxyzine HCl (Hydroxyzine Hcl 50 Mg Tablet) 50 mg PO Q8H PRN PRN Reason: anxiety/restlessness Last Admin: 05/07/24 22:39 Dose: 50 mg Lactic Acid (Ammonium Lactate 12 % Lotion 226 Gm Bottle) 1 appl TOPICAL BID [facility]; Protocol Last Admin: 05/07/24 22:44 Dose: Not Given Lamotrigine 300 mg/ (Lamotrigine 25 mg) 325 mg PO BEDTIME [facility] Last Admin: 05/07/24 22:39 Dose: 325 mg Lorazepam (Lorazepam 1 Mg Tablet) 1 mg PO BID PRN PRN Reason: Anxiety Last Admin: 05/08/24 07:08 Dose: 1 mg Magnesium Hydroxide (Milk Of Magnesia 30 Ml Oral.Susp) 30 ml PO DAILY PRN PRN Reason: Constipation Melatonin (Melatonin 3 Mg Tablet) 9 mg PO BEDTIME PRN PRN Reason: Insomnia Last Admin: 05/07/24 22:38 Dose: 9 mg Metformin HCl (Metformin Hcl 500 Mg Tablet) 500 mg PO BIDWM [facility] Last Admin: 05/07/24 17:52 Dose: 500 mg Omeprazole (Omeprazole 40 Mg Capsule.Dr) 40 mg PO BID@0630,1630 [facility] Last Admin: 05/08/24 07:08 Dose: 40 mg Prazosin HCl (Prazosin Hcl 5 Mg Capsule) 10 mg PO BEDTIME [facility]; Protocol Last Admin: 05/07/24 22:39 Dose: 10 mg Quetiapine Fumarate (Quetiapine Fumarate 400 Mg Tablet) 400 mg PO BEDTIME [facility] Last Admin: 05/07/24 22:39 Dose: 400 mg Quetiapine Fumarate (Quetiapine Fumarate 50 Mg Tablet) 50 mg PO Q6H PRN PRN Reason: severe anxiety/agitation Last Admin: 05/06/24 22:02 Dose: 50 mg Torsemide (Torsemide 20 Mg Tablet) 80 mg PO BID@0800,1500 [facility]; Protocol Trolamine Salicylate (Trolamine Salicylate 10 % Cream 85 Gm Tube) 1 appl TOPICAL QID [facility]; Protocol Last Admin: 05/07/24 22:43 Dose: Not Given Allergies Allergies Allergy/AdvReac Type Severity Reaction Status Date / Time haloperidol [From Haldol] Allergy Unknown Verified 02/25/24 19:01 trazodone AdvReac restless Verified 02/26/24 17:14 leg syndrome Assessment & Plan Assessment & Plan (1) Bipolar disorder: Status: Acute Code(s): F31.9 - Bipolar disorder, unspecified (2) Personality disorder: Status: Acute Code(s): F60.9 - Personality disorder, unspecified (3) Polysubstance use disorder: Status: Acute Code(s): F19.90 - Other psychoactive substance use, unspecified, uncomplicated (4) ADHD: Status: Acute Code(s): F90.9 - Attention-deficit hyperactivity disorder, unspecified type Plan HPI_ 39 yo MWNabil presents after having visited father Friday who has stage 4 cancer and is in a protocol at [facility]- feeling si about possibly not seeing him again with thoughts to jump of bridge- Also reports he has access to fire arms (knows gang people) and homicidal toward [facility]'t [facility] more for his dad- Reports homeless and went to live with her mother , he doesn't get along with mother in law so can't go there- Describes chaotic hospital to hospital ER to [facility] to hospital for psychiatric care- feeling he needs some kind of regulatory affairs intern psychiatric hospitalization. He does have wrap around care at [facility] who rxs meds, has casemanager which he will do release for - pcp gets consultation for psych meds and suboxone care- 05/01/24 - resume treatment get release for healthcare provider casemanager- 05/02: I have borderline personality disorder - TElls me story about why he hates his mother in law- betrayal she did to her daugther by sec 12 her years ago - saw the pain in 's eyes PT reports meds restarted are fine- continues to think he needs correction hospitalization [place] and casemanager- which is more than many have here- suspect recurrent homelessness and substance use with threats of si behind recurrent hospitalizations and desire for regulatory affairs intern- Also father in stage 4 cancer, saw wed- and still homicidal with supposed access to guns toward father's [facility] dr[facility]. 05/03: Keeping to self. Patient reports having a lot of anxiety . Patient stated, it is my dad's birthday and he is dying of cancer and I can't be with him. My dad encouraged me to go get help because I was having thoughts of hurting his doctors because they were not helping him . Patient reports homicidal ideation towards his father's physicians. Patient stated, I was thinking about killing his doctors and then killing myself. I wouldn't be worried about going to assisted because I would be . Patient reports he is interested in some kind of long-term psychiatric care where I can't hurt myself or anyone else . He reports his current medications help his mood. Patient denies AH/VH. We will need to obtain collateral from outpatient providers. 05/04: Observed sitting out in milieu. Social with select peers. Met with patient and Dr. Harris present. Patient reports feeling similar to yesterday. He reports moments of crying randomly for hours . Patient continues to report suicidal ideation and homicidal ideation. He reports homicidal ideation towards the [place] doctors who would not treat my dad . When discussing future treatment options, patient stated, I don't give a fuck right now. I'm just tired of everything . When asked if T/W could speak to family, patient declined. Increase Lamictal to 325mg PO bedtime Decrease hydroxyzine to 50mg Q8hr PRN 05/05: irritable and negativistic, brightens at discussion of potential weight loss, discusses options he is considering for the future. scheduled tylenol 975 mg QID, aspercreme QID to knees. otherwise continue current mgmt. 05/06: Keeping to self. In room most of morning. Patient continues to report feeling depressed; patient stated, I talked to my dad and the cancer spread more . Patient continues to report suicidal ideation and reports that is not decreased at all . He reports homicidal ideation; patient stated, I'm thinking even more of harming the doctors at the [place] because my dad spoke to [facility] and [facility] said [facility] . Continue current treatment plan. 05/07: Keeping to self. Patient continues to report feeling depressed and hopeless. He continues to report suicidal ideation and homicidal ideation towards [place] doctors. Pt stated, I don't care if I would go to [facility] if I hurt them . Pt requesting increase in Ativan dose; prescription monitoring shows pt received: Ativan 0.5mg BID for 7 days on 04/09/24 from one provider and Ativan 1mg PO BID for 7 days from a different provider. No other record of Ativan prescription. Pt is currently on Ativan 1mg PO BID PRN; dose was not increased d/t pt's presenting sedated. Reason for continued inpatient stay Substantial Risk for: harm to self, harm to others, inability to function and rapid decompensation Time Spent With Patient Time: Total time managing care of this patient today ____ minutes.
[2024-05-08 09:46] VITALS: BP 132/69; PULSE 101; RESP 18; TEMP 36.5; O2SAT 98
[2024-05-08] MEDS: Dextroamphetamine/Amphetamine XR 10 MG CAP.ER.24H 20 MG PO (09:48)
[2024-05-08] MEDS: metFORMIN HCl 500 MG TABLET PO ×2 (09:49→17:19)
[2024-05-08] MEDS: buPROPion HCl XL 300 MG TAB.ER.24H PO (09:49)
[2024-05-08] MEDS: Buprenorphine/Naloxone 8/2 mg FILM 1 FILM BUCCAL ×3 (09:50→22:10)
[2024-05-08] MEDS: Acetaminophen 325 MG TABLET 975 MG PO ×4 (09:50→22:07)
[2024-05-08] MEDS: Gabapentin 400 MG CAPSULE 800 MG PO ×3 (09:51→22:07)
[2024-05-08] MEDS: Torsemide 20 MG TABLET 80 MG PO ×2 (09:51→14:45)
[2024-05-08] MEDS: hydrOXYzine HCL 50 MG TABLET PO ×2 (10:19→22:06)
[2024-05-08] MEDS: cloNIDine HCL 0.2 MG TABLET PO ×3 (10:19→22:06)
[2024-05-08] MEDS: Cyclobenzaprine HCl 10 MG TABLET PO ×3 (10:19→22:06)
[2024-05-08 14:45] VITALS: BP 129/59
[2024-05-08] MEDS: Amphetamine Mixed Salts 10 MG TABLET PO (14:45)
[2024-05-08 17:21] VITALS: BP 136/78
[2024-05-08 21:54] VITALS: BP 135/96; PULSE 91; RESP 18; TEMP 36.4; O2SAT 97
[2024-05-08] MEDS: Melatonin 3 MG TABLET 9 MG PO (22:05)
[2024-05-08] MEDS: Prazosin HCL 5 MG CAPSULE 10 MG PO (22:06)
[2024-05-08] MEDS: QUEtiapine Fumarate 400 MG TABLET PO (22:06)
[2024-05-09] MEDS: Cyclobenzaprine HCl 10 MG TABLET PO ×3 (04:51→22:10)
[2024-05-09] MEDS: Doxycycline Monohydrate 100 MG CAPSULE PO ×2 (06:09→17:30)
[2024-05-09] MEDS: Omeprazole 40 MG CAPSULE.DR PO ×2 (06:09→16:36)
[2024-05-09] MEDS: Albuterol Sulfate 90 MCG 8 GM INHALER 2 PUFF INHALE ×4 (09:04→23:51)
[2024-05-09] MEDS: metFORMIN HCl 500 MG TABLET PO ×2 (09:08→17:30)
[2024-05-09 09:09] VITALS: BP 147/82; PULSE 79; RESP 16; TEMP 36.8; O2SAT 96
[2024-05-09] MEDS: Dextroamphetamine/Amphetamine XR 10 MG CAP.ER.24H 20 MG PO (09:09)
[2024-05-09] MEDS: Acetaminophen 325 MG TABLET 975 MG PO ×4 (09:09→22:05)
[2024-05-09] MEDS: buPROPion HCl XL 300 MG TAB.ER.24H PO (09:09)
[2024-05-09] MEDS: Torsemide 20 MG TABLET 80 MG PO ×2 (09:09→14:36)
[2024-05-09] MEDS: Gabapentin 400 MG CAPSULE 800 MG PO ×3 (09:09→21:58)
[2024-05-09] MEDS: Buprenorphine/Naloxone 8/2 mg FILM 1 FILM BUCCAL ×3 (09:09→22:06)
--- NOTE | 2024-05-09 11:36 | HO.PSYCHPN ---
Subjective Subjective Date of Service: 05/09/24 Reason For Visit: unspecified bipolar d/o Interim History: Isolates in his room. Sits in the dark when this policy writer sales enters. He is complaining of depression and anxiety. He reports lower back pain. Was given a hot water bottle. Denies active SI/HI today. He continues to report depression and anxiety. No AVH Review of Systems Review of Systems Increased shortness a breath Chronic sinus pain Chronic lower leg edema No chest pain/pressure, palpitations Denies fever, chills, nausea, vomiting, abdominal pain Constitutional: Reports as per HPI Eyes: Reports as per HPI Reports as per HPI Cardiovascular: Reports as per HPI Respiratory: Reports as per HPI Gastrointestinal: Reports as per HPI Genitourinary: Reports as per HPI Musculoskeletal: Reports as per HPI Skin/Breast: Reports as per HPI Reports as per HPI Psychiatric: Reports as per HPI Endocrine: Reports as per HPI Hematologic/Lymphatic: Reports as per HPI Allergic/Immunologic: Reports as per HPI Mental Status Exam Mental Status Exam Narrative: Pt is alert and oriented; behavior is cooperative, guarded; dressed in casual attire; mood is described as depressed ; eye contact appropriate; Speech is normal rate, volume and not pressured; thought process is organized; Thought content is without delusions or paranoia; pt reports suicidal and homicial ideation. denies AH/VH. Patient Appearance: Appropriate Patient Orientation: Person, Place, Time and Situation Level of Consciousness: Awake Patient Behavior: Appropriate, Talkative, Cooperative and Good Eye Contact Mood Description: Calm Affect Description: Appropriate Patient Cognition Impaired: No Speech Pattern: Clear Diagnostics Vital Signs (24Hr): Vital Signs - 24 hr 05/08/24 14:45 05/08/24 17:21 05/08/24 21:54 Temperature 97.5 F Pulse Rate 91 Respiratory Rate 18 Blood Pressure 129/59 L 136/78 135/96 H Pulse Oximetry 97 Oxygen Delivery Method Room Air 05/09/24 09:09 05/09/24 09:09 Temperature 98.2 F Pulse Rate 79 Respiratory Rate 16 Blood Pressure 147/82 H 147/82 H Pulse Oximetry 96 Oxygen Delivery Method Room Air BMI result Body Mass Index 69.2 Labs 05/03/24 17:20 05/08/24 08:06 Labs: Laboratory Results - last 48 hr 05/08/24 08:06 Creatinine 0.99 Estim Creat Clear Calc 199.1 Estimated GFR > 60 Medications Medications Current Medications Acetaminophen (Acetaminophen 325 Mg Tablet) 975 mg PO QID [facility] Last Admin: 05/09/24 09:09 Dose: 975 mg Al Hydroxide/Mg Hydroxide (Magnesium Hydrox/Alum Hydrox 30 Ml Oral.Susp) 30 ml PO Q6H PRN PRN Reason: Heartburn/Nausea Albuterol Sulfate (Albuterol Sulfate 90 Mcg 8 Gm Inhaler) 2 puff INHALE RQ4H PRN PRN Reason: Shortness Of Breath Last Admin: 05/09/24 09:04 Dose: 2 puff Albuterol/Ipratropium (Albuterol/Iprat 2.5/0.5mg 3 Ml Ampul.Neb) 3 ml INHALE RQ4H WHILE AWAKE PRN PRN Reason: Shortness of Breath/Wheezing Amphetamine/Dextroamphetamine (Amphetamine Mixed Salts 10 Mg Tablet) 10 mg PO DAILY@1500 [facility] Last Admin: 05/08/24 14:45 Dose: 10 mg Amphetamine/Dextroamphetamine (Dextroamphetamine/Amphetamine Xr 10 Mg Cap.Er.24h) 20 mg PO DAILY [facility] Last Admin: 05/09/24 09:09 Dose: 20 mg Buprenorphine/Naloxone (Buprenorphine/Naloxone 8/2 Mg Film) 1 film BUCCAL TID [facility] Last Admin: 05/09/24 09:09 Dose: 1 film Bupropion HCl (Bupropion Hcl Xl 300 Mg Tab.Er.24h) 300 mg PO DAILY [facility] Last Admin: 05/09/24 09:09 Dose: 300 mg Clonidine HCl (Clonidine Hcl 0.2 Mg Tablet) 0.2 mg PO TID PRN; Protocol PRN Reason: anxiety Last Admin: 05/08/24 22:06 Dose: 0.2 mg Cyclobenzaprine HCl (Cyclobenzaprine Hcl 10 Mg Tablet) 10 mg PO TID PRN PRN Reason: Muscle Spasm Last Admin: 05/09/24 04:51 Dose: 10 mg Doxycycline Monohydrate (Doxycycline Monohydrate 100 Mg Capsule) 100 mg PO Q12H [facility] Stop: 05/10/24 05:01 Last Admin: 05/09/24 06:09 Dose: 100 mg Gabapentin (Gabapentin 400 Mg Capsule) 800 mg PO TID [facility] Last Admin: 05/09/24 09:09 Dose: 800 mg Hydroxyzine HCl (Hydroxyzine Hcl 50 Mg Tablet) 50 mg PO Q8H PRN PRN Reason: anxiety/restlessness Last Admin: 05/08/24 22:06 Dose: 50 mg Lactic Acid (Ammonium Lactate 12 % Lotion 226 Gm Bottle) 1 appl TOPICAL BID [facility]; Protocol Last Admin: 05/09/24 09:32 Dose: Not Given Lamotrigine 300 mg/ (Lamotrigine 25 mg) 325 mg PO BEDTIME [facility] Last Admin: 05/08/24 22:07 Dose: 325 mg Lidocaine (Lidocaine 4 % Patch Adh..Patch) 1 patch TRANSDERMA DAILY [facility]; Protocol Lorazepam (Lorazepam 1 Mg Tablet) 1 mg PO BID PRN PRN Reason: Anxiety Last Admin: 05/08/24 18:36 Dose: 1 mg Magnesium Hydroxide (Milk Of Magnesia 30 Ml Oral.Susp) 30 ml PO DAILY PRN PRN Reason: Constipation Melatonin (Melatonin 3 Mg Tablet) 9 mg PO BEDTIME PRN PRN Reason: Insomnia Last Admin: 05/08/24 22:05 Dose: 9 mg Metformin HCl (Metformin Hcl 500 Mg Tablet) 500 mg PO BIDWM [facility] Last Admin: 05/09/24 09:08 Dose: 500 mg Omeprazole (Omeprazole 40 Mg Capsule.Dr) 40 mg PO BID@0630,1630 [facility] Last Admin: 05/09/24 06:09 Dose: 40 mg Prazosin HCl (Prazosin Hcl 5 Mg Capsule) 10 mg PO BEDTIME [facility]; Protocol Last Admin: 05/08/24 22:06 Dose: 10 mg Quetiapine Fumarate (Quetiapine Fumarate 400 Mg Tablet) 400 mg PO BEDTIME [facility] Last Admin: 05/08/24 22:06 Dose: 400 mg Quetiapine Fumarate (Quetiapine Fumarate 50 Mg Tablet) 50 mg PO Q6H PRN PRN Reason: severe anxiety/agitation Last Admin: 05/06/24 22:02 Dose: 50 mg Torsemide (Torsemide 20 Mg Tablet) 80 mg PO BID@0800,1500 [facility]; Protocol Last Admin: 05/09/24 09:09 Dose: 80 mg Trolamine Salicylate (Trolamine Salicylate 10 % Cream 85 Gm Tube) 1 appl TOPICAL QID [facility]; Protocol Last Admin: 05/09/24 09:32 Dose: Not Given Allergies Allergies Allergy/AdvReac Type Severity Reaction Status Date / Time haloperidol [From Haldol] Allergy Unknown Verified 02/25/24 19:01 trazodone AdvReac restless Verified 02/26/24 17:14 leg syndrome Assessment & Plan Assessment & Plan (1) Bipolar disorder: Status: Acute Code(s): F31.9 - Bipolar disorder, unspecified (2) Personality disorder: Status: Acute Code(s): F60.9 - Personality disorder, unspecified (3) Polysubstance use disorder: Status: Acute Code(s): F19.90 - Other psychoactive substance use, unspecified, uncomplicated (4) ADHD: Status: Acute Code(s): F90.9 - Attention-deficit hyperactivity disorder, unspecified type Plan HPI_ 39 yo MWNabil presents after having visited father Friday who has stage 4 cancer and is in a protocol at [facility]- feeling si about possibly not seeing him again with thoughts to jump of bridge- Also reports he has access to fire arms (knows gang people) and homicidal toward [facility] who didn't do more for his dad- Reports homeless and went to live with her mother , he doesn't get along with mother in law so can't go there- Describes chaotic hospital to hospital ER to [facility] to hospital for psychiatric care- feeling he needs some kind of dedicated intermodal truck driver psychiatric hospitalization. He does have wrap around care at [facility] who rxs meds, has casemanager which he will do release for - pcp gets consultation for psych meds and suboxone care- 05/01/24 - resume treatment get release for healthcare provider casemanager- 05/02: I have borderline personality disorder - TElls me story about why he hates his mother in law- betrayal she did to her daugther by sec 12 her years ago - saw the pain in 's eyes PT reports meds restarted are fine- continues to think he needs dedicated intermodal truck driver hospitalization [place] and casemanager- which is more than many have here- suspect recurrent homelessness and substance use with threats of si behind recurrent hospitalizations and desire for dedicated intermodal truck driver- Also father in stage 4 cancer, saw wed- and still homicidal with supposed access to guns toward father's [facility] dr[facility]. 05/03: Keeping to self. Patient reports having a lot of anxiety . Patient stated, it is my dad's birthday and he is dying of cancer and I can't be with him. My dad encouraged me to go get help because I was having thoughts of hurting his doctors because they were not helping him . Patient reports homicidal ideation towards his father's physicians. Patient stated, I was thinking about killing his doctors and then killing myself. I wouldn't be worried about going to long term because I would be . Patient reports he is interested in some kind of long-term psychiatric care where I can't hurt myself or anyone else . He reports his current medications help his mood. Patient denies AH/VH. We will need to obtain collateral from outpatient providers. 05/04: Observed sitting out in milieu. Social with select peers. Met with patient and Dr. Harris present. Patient reports feeling similar to yesterday. He reports moments of crying randomly for hours . Patient continues to report suicidal ideation and homicidal ideation. He reports homicidal ideation towards the [place] doctors who would not treat my dad . When discussing future treatment options, patient stated, I don't give a fuck right now. I'm just tired of everything . When asked if T/W could speak to family, patient declined. Increase Lamictal to 325mg PO bedtime Decrease hydroxyzine to 50mg Q8hr PRN 05/05: irritable and negativistic, brightens at discussion of potential weight loss, discusses options he is considering for the future. scheduled tylenol 975 mg QID, aspercreme QID to knees. otherwise continue current mgmt. 05/06: Keeping to self. In room most of morning. Patient continues to report feeling depressed; patient stated, I talked to my dad and the cancer spread more . Patient continues to report suicidal ideation and reports that is not decreased at all . He reports homicidal ideation; patient stated, I'm thinking even more of harming the doctors at the [place] because my [facility] to [facility] and [facility] said [facility] . Continue current treatment plan. 05/07: Keeping to self. Patient continues to report feeling depressed and hopeless. He continues to report suicidal ideation and homicidal ideation towards [facility]. Pt stated, I don't care if I would go to [facility] if I hurt them . Pt requesting increase in Ativan dose; prescription monitoring shows pt received: Ativan 0.5mg BID for 7 days on 04/09/24 from one provider and Ativan 1mg PO BID for 7 days from a different provider. No other record of Ativan prescription. Pt is currently on Ativan 1mg PO BID PRN; dose was not increased d/t pt's presenting sedated. 05/09: Lidocaine patch for LBP and continue current management and treatment plan. Reason for continued inpatient stay Substantial Risk for: harm to self, harm to others and rapid decompensation Time Spent With Patient Time: Total time managing care of this patient today ____ minutes.
[2024-05-09] MEDS: Lidocaine 4 % Patch ADH..PATCH 1 PATCH TRANSDERMA (12:24)
[2024-05-09] MEDS: LORazepam 1 MG TABLET PO ×2 (13:25→19:55)
[2024-05-09 14:30] VITALS: BP 133/64; PULSE 100; O2SAT 97
[2024-05-09] MEDS: Amphetamine Mixed Salts 10 MG TABLET PO (14:35)
[2024-05-09 20:00] VITALS: BP 149/94; PULSE 96; RESP 16; TEMP 37.1; O2SAT 95
[2024-05-09] MEDS: QUEtiapine Fumarate 400 MG TABLET PO (21:58)
[2024-05-09] MEDS: Prazosin HCL 5 MG CAPSULE 10 MG PO (21:59)
[2024-05-09] MEDS: Melatonin 3 MG TABLET 9 MG PO (22:01)
[2024-05-09] MEDS: cloNIDine HCL 0.2 MG TABLET PO (22:03)
[2024-05-09] MEDS: hydrOXYzine HCL 50 MG TABLET PO (22:11)
[2024-05-10] MEDS: Albuterol Sulfate 90 MCG 8 GM INHALER 2 PUFF INHALE ×3 (04:36→20:35)
[2024-05-10 04:38] VITALS: BP 137/73
[2024-05-10] MEDS: cloNIDine HCL 0.2 MG TABLET PO ×2 (04:38→21:55)
[2024-05-10] MEDS: Doxycycline Monohydrate 100 MG CAPSULE PO (04:39)
[2024-05-10] MEDS: Omeprazole 40 MG CAPSULE.DR PO ×2 (06:30→16:20)
[2024-05-10 08:00] VITALS: BP 128/62; PULSE 74; RESP 14; TEMP 36.4; O2SAT 93
[2024-05-10] MEDS: metFORMIN HCl 500 MG TABLET PO ×2 (08:32→16:20)
[2024-05-10] MEDS: Dextroamphetamine/Amphetamine XR 10 MG CAP.ER.24H 20 MG PO (08:33)
[2024-05-10] MEDS: Gabapentin 400 MG CAPSULE 800 MG PO ×3 (08:33→21:51)
[2024-05-10] MEDS: buPROPion HCl XL 300 MG TAB.ER.24H PO (08:34)
[2024-05-10] MEDS: Torsemide 20 MG TABLET 80 MG PO ×2 (08:36→14:21)
[2024-05-10] MEDS: Buprenorphine/Naloxone 8/2 mg FILM 1 FILM BUCCAL ×3 (08:38→21:57)
--- NOTE | 2024-05-10 11:12 | HO.PSYCHPN ---
Subjective Subjective Date of Service: 05/10/24 Reason For Visit: unspecified bipolar d/o Interim History: Isolates in his room. Refused his labs today earlier and when asked said it was because he had just fallen asleep.. Educated about importance of labs since he is on diuretic. He was willing and apologetic. He continues to feel anger towards [facility] for what he believes caused a delay in his father's cancer diagnosis and says why should they be the fat cats that get pain $200,000 while my dad suffers. He was always my lighthouse. He could have been here for an extra year or 2. Empathic listening offered. Perspective and less drastic avenues for resolving this kind of problem offered. I guess I just have to keep trying to not feel this way. Back pain is better. He is complaining of depression and anxiety as the day goes on. Feels safe on the unit and has no suicidal intent. No AVH Review of Systems Review of Systems Increased shortness a breath Chronic sinus pain Chronic lower leg edema No chest pain/pressure, palpitations Denies fever, chills, nausea, vomiting, abdominal pain Constitutional: Reports as per HPI Eyes: Reports as per HPI Reports as per HPI Cardiovascular: Reports as per HPI Respiratory: Reports as per HPI Gastrointestinal: Reports as per HPI Genitourinary: Reports as per HPI Musculoskeletal: Reports as per HPI Skin/Breast: Reports as per HPI Reports as per HPI Psychiatric: Reports as per HPI Endocrine: Reports as per HPI Hematologic/Lymphatic: Reports as per HPI Allergic/Immunologic: Reports as per HPI Mental Status Exam Mental Status Exam Narrative: Pt is alert and oriented; behavior is cooperative, guarded; dressed in casual attire; mood is described as depressed ; eye contact appropriate; Speech is normal rate, volume and not pressured; thought process is organized; Thought content is without delusions or paranoia; pt reports suicidal and homicial ideation. denies AH/VH. Patient Appearance: Appropriate Patient Orientation: Person, Place, Time and Situation Level of Consciousness: Awake Patient Behavior: Appropriate, Talkative, Cooperative and Good Eye Contact Mood Description: Calm Affect Description: Appropriate Patient Cognition Impaired: No Speech Pattern: Clear Diagnostics Vital Signs (24Hr): Vital Signs - 24 hr 05/09/24 14:30 05/09/24 20:00 05/10/24 04:38 Temperature 98.7 F Pulse Rate 100 96 Respiratory Rate 16 Blood Pressure 133/64 149/94 H 137/73 Pulse Oximetry 97 95 Oxygen Delivery Method Room Air Room Air 05/10/24 08:00 Temperature 97.5 F Pulse Rate 74 Respiratory Rate 14 Blood Pressure 128/62 Pulse Oximetry 93 Oxygen Delivery Method Room Air BMI result Body Mass Index 69.2 Labs 05/03/24 17:20 05/08/24 08:06 Medications Medications Current Medications Acetaminophen (Acetaminophen 325 Mg Tablet) 975 mg PO QID [facility] Last Admin: 05/10/24 10:03 Dose: Not Given Al Hydroxide/Mg Hydroxide (Magnesium Hydrox/Alum Hydrox 30 Ml Oral.Susp) 30 ml PO Q6H PRN PRN Reason: Heartburn/Nausea Albuterol Sulfate (Albuterol Sulfate 90 Mcg 8 Gm Inhaler) 2 puff INHALE RQ4H PRN PRN Reason: Shortness Of Breath Last Admin: 05/10/24 04:36 Dose: 2 puff Albuterol/Ipratropium (Albuterol/Iprat 2.5/0.5mg 3 Ml Ampul.Neb) 3 ml INHALE RQ4H WHILE AWAKE PRN PRN Reason: Shortness of Breath/Wheezing Amphetamine/Dextroamphetamine (Amphetamine Mixed Salts 10 Mg Tablet) 10 mg PO DAILY@1500 [facility] Last Admin: 05/09/24 14:35 Dose: 10 mg Amphetamine/Dextroamphetamine (Dextroamphetamine/Amphetamine Xr 10 Mg Cap.Er.24h) 20 mg PO DAILY [facility] Last Admin: 05/10/24 08:33 Dose: 20 mg Buprenorphine/Naloxone (Buprenorphine/Naloxone 8/2 Mg Film) 1 film BUCCAL TID [facility] Last Admin: 05/10/24 08:38 Dose: 1 film Bupropion HCl (Bupropion Hcl Xl 300 Mg Tab.Er.24h) 300 mg PO DAILY [facility] Last Admin: 05/10/24 08:34 Dose: 300 mg Clonidine HCl (Clonidine Hcl 0.2 Mg Tablet) 0.2 mg PO TID PRN; Protocol PRN Reason: anxiety Last Admin: 05/10/24 04:38 Dose: 0.2 mg Cyclobenzaprine HCl (Cyclobenzaprine Hcl 10 Mg Tablet) 10 mg PO TID PRN PRN Reason: Muscle Spasm Last Admin: 05/09/24 22:10 Dose: 10 mg Gabapentin (Gabapentin 400 Mg Capsule) 800 mg PO TID [facility] Last Admin: 05/10/24 08:33 Dose: 800 mg Hydroxyzine HCl (Hydroxyzine Hcl 50 Mg Tablet) 50 mg PO Q8H PRN PRN Reason: anxiety/restlessness Last Admin: 05/09/24 22:11 Dose: 50 mg Lactic Acid (Ammonium Lactate 12 % Lotion 226 Gm Bottle) 1 appl TOPICAL BID [facility]; Protocol Last Admin: 05/10/24 08:52 Dose: Not Given Lamotrigine 300 mg/ (Lamotrigine 25 mg) 325 mg PO BEDTIME [facility] Last Admin: 05/09/24 21:59 Dose: 325 mg Lidocaine (Lidocaine 4 % Patch Adh..Patch) 1 patch TRANSDERMA DAILY [facility]; Protocol Last Admin: 05/10/24 08:52 Dose: Not Given Lorazepam (Lorazepam 1 Mg Tablet) 1 mg PO BID PRN PRN Reason: Anxiety Last Admin: 05/09/24 19:55 Dose: 1 mg Magnesium Hydroxide (Milk Of Magnesia 30 Ml Oral.Susp) 30 ml PO DAILY PRN PRN Reason: Constipation Melatonin (Melatonin 3 Mg Tablet) 9 mg PO BEDTIME PRN PRN Reason: Insomnia Last Admin: 05/09/24 22:01 Dose: 9 mg Metformin HCl (Metformin Hcl 500 Mg Tablet) 500 mg PO BIDWM [facility] Last Admin: 05/10/24 08:32 Dose: 500 mg Omeprazole (Omeprazole 40 Mg Capsule.Dr) 40 mg PO BID@0630,1630 [facility] Last Admin: 05/10/24 06:30 Dose: 40 mg Prazosin HCl (Prazosin Hcl 5 Mg Capsule) 10 mg PO BEDTIME [facility]; Protocol Last Admin: 05/09/24 21:59 Dose: 10 mg Quetiapine Fumarate (Quetiapine Fumarate 400 Mg Tablet) 400 mg PO BEDTIME [facility] Last Admin: 05/09/24 21:58 Dose: 400 mg Quetiapine Fumarate (Quetiapine Fumarate 50 Mg Tablet) 50 mg PO Q6H PRN PRN Reason: severe anxiety/agitation Last Admin: 05/06/24 22:02 Dose: 50 mg Torsemide (Torsemide 20 Mg Tablet) 80 mg PO BID@0800,1500 [facility]; Protocol Last Admin: 05/10/24 08:36 Dose: 80 mg Trolamine Salicylate (Trolamine Salicylate 10 % Cream 85 Gm Tube) 1 appl TOPICAL QID [facility]; Protocol Last Admin: 05/10/24 08:52 Dose: Not Given Allergies Allergies Allergy/AdvReac Type Severity Reaction Status Date / Time haloperidol [From Haldol] Allergy Unknown Verified 02/25/24 19:01 trazodone AdvReac restless Verified 02/26/24 17:14 leg syndrome Assessment & Plan Assessment & Plan (1) Bipolar disorder: Status: Acute Code(s): F31.9 - Bipolar disorder, unspecified (2) Personality disorder: Status: Acute Code(s): F60.9 - Personality disorder, unspecified (3) Polysubstance use disorder: Status: Acute Code(s): F19.90 - Other psychoactive substance use, unspecified, uncomplicated (4) ADHD: Status: Acute Code(s): F90.9 - Attention-deficit hyperactivity disorder, unspecified type Plan HPI_ 39 yo MWNabil presents after having visited father Friday who has stage 4 cancer and is in a protocol at [facility]- feeling si about possibly not seeing him again with thoughts to jump of bridge- Also reports he has access to fire arms (knows gang people) and homicidal toward [facility] dr[facility] who didn't do more for his dad- Reports homeless and went to live with her mother , he doesn't get along with mother in law so can't go there- Describes chaotic hospital to hospital ER to [facility] to hospital for psychiatric care- feeling he needs some kind of nursing home psychiatric hospitalization. He does have wrap around care at [facility] who rxs meds, has casemanager which he will do release for - pcp gets consultation for psych meds and suboxone care- 05/01/24 - resume treatment get release for healthcare provider casemanager- 05/02: I have borderline personality disorder - TElls me story about why he hates his mother in law- betrayal she did to her daugther by sec 12 her years ago - saw the pain in 's eyes PT reports meds restarted are fine- continues to think he needs sample worker hospitalization [place] and casemanager- which is more than many have here- suspect recurrent homelessness and substance use with threats of si behind recurrent hospitalizations and desire for nursing home- Also father in stage 4 cancer, saw wed- and still homicidal with supposed access to guns toward father's [facility] drs. 05/03: Keeping to self. Patient reports having a lot of anxiety . Patient stated, it is my dad's birthday and he is dying of cancer and I can't be with him. My dad encouraged me to go get help because I was having thoughts of hurting his doctors because they were not helping him . Patient reports homicidal ideation towards his father's physicians. Patient stated, I was thinking about killing his doctors and then killing myself. I wouldn't be worried about going to [facility] because I would be . Patient reports he is interested in some kind of long-term psychiatric care where I can't hurt myself or anyone else . He reports his current medications help his mood. Patient denies AH/VH. We will need to obtain collateral from outpatient providers. 05/04: Observed sitting out in milieu. Social with select peers. Met with patient and Dr. Harris present. Patient reports feeling similar to yesterday. He reports moments of crying randomly for hours . Patient continues to report suicidal ideation and homicidal ideation. He reports homicidal ideation towards the [place] doctors who would not treat my dad . When discussing future treatment options, patient stated, I don't give a fuck right now. I'm just tired of everything . When asked if T/W could speak to family, patient declined. Increase Lamictal to 325mg PO bedtime Decrease hydroxyzine to 50mg Q8hr PRN 05/05: irritable and negativistic, brightens at discussion of potential weight loss, discusses options he is considering for the future. scheduled tylenol 975 mg QID, aspercreme QID to knees. otherwise continue current mgmt. 05/06: Keeping to self. In room most of morning. Patient continues to report feeling depressed; patient stated, I talked to my dad and the cancer spread more . Patient continues to report suicidal ideation and reports that is not decreased at all . He reports homicidal ideation; patient stated, I'm thinking even more of harming the doctors at the [facility] because my dad spoke to [facility] and [facility] said [facility] could have [facility] for him . Continue current treatment plan. 05/07: Keeping to self. Patient continues to report feeling depressed and hopeless. He continues to report suicidal ideation and homicidal ideation towards [facility] doctors. Pt stated, I don't care if I would go to prison if I hurt them . Pt requesting increase in Ativan dose; prescription monitoring shows pt received: Ativan 0.5mg BID for 7 days on 04/09/24 from one provider and Ativan 1mg PO BID for 7 days from a different provider. No other record of Ativan prescription. Pt is currently on Ativan 1mg PO BID PRN; dose was not increased d/t pt's presenting sedated. 05/09: Lidocaine patch for LBP and continue current management and treatment plan. 05/10: Refused labs today. Educated about importance of same since he is on diuretic agreed to have it done. Continue current management and treatment plan. Reason for continued inpatient stay Substantial Risk for: harm to self, harm to others and rapid decompensation Time Spent With Patient Time: Total time managing care of this patient today ____ minutes.
[2024-05-10] MEDS: LORazepam 1 MG TABLET PO ×2 (11:41→14:55)
[2024-05-10] MEDS: Acetaminophen 325 MG TABLET 975 MG PO ×3 (12:51→21:51)
[2024-05-10 14:19] VITALS: BP 138/79; PULSE 103
[2024-05-10] MEDS: Amphetamine Mixed Salts 10 MG TABLET PO (14:20)
[2024-05-10] MEDS: QUEtiapine Fumarate 50 MG TABLET PO (14:20)
[2024-05-10] MEDS: hydrOXYzine HCL 50 MG TABLET PO ×2 (14:21→21:54)
[2024-05-10] MEDS: Cyclobenzaprine HCl 10 MG TABLET PO ×2 (14:55→21:54)
[2024-05-10 20:00] VITALS: BP 135/82; PULSE 96; RESP 18; TEMP 36.6; O2SAT 97
[2024-05-10] MEDS: Prazosin HCL 5 MG CAPSULE 10 MG PO (21:54)
[2024-05-10 21:55] VITALS: BP 133/86
[2024-05-10] MEDS: QUEtiapine Fumarate 400 MG TABLET PO (21:55)
[2024-05-10] MEDS: Melatonin 3 MG TABLET 9 MG PO (21:56)
[2024-05-11] MEDS: Ibuprofen 600 MG TABLET PO ×2 (00:21→12:38)
[2024-05-11] MEDS: Omeprazole 40 MG CAPSULE.DR PO (06:30)
[2024-05-11 09:02] VITALS: BP 147/68; PULSE 80; RESP 20; TEMP 36.8; O2SAT 93
[2024-05-11] MEDS: Torsemide 20 MG TABLET 80 MG PO (09:03)
[2024-05-11] MEDS: Albuterol Sulfate 90 MCG 8 GM INHALER 2 PUFF INHALE (09:03)
[2024-05-11] MEDS: Gabapentin 400 MG CAPSULE 800 MG PO ×2 (09:04→13:54)
[2024-05-11] MEDS: buPROPion HCl XL 300 MG TAB.ER.24H PO (09:04)
[2024-05-11] MEDS: metFORMIN HCl 500 MG TABLET PO (09:04)
[2024-05-11] MEDS: Acetaminophen 325 MG TABLET 975 MG PO ×2 (09:05→13:54)
[2024-05-11] MEDS: Dextroamphetamine/Amphetamine XR 10 MG CAP.ER.24H 20 MG PO (09:05)
[2024-05-11] MEDS: Buprenorphine/Naloxone 8/2 mg FILM 1 FILM BUCCAL ×2 (09:06→14:56)
[2024-05-11 09:08] LABS: Anion Gap 13 (12-20); Blood Urea Nitrogen 24 mg/dL (9-16); Calcium 10.2 mg/dL (8.4-10.2); Carbon Dioxide 30 mmol/L (22-29); Chloride 99 mmol/L (96-108); Creatinine Clr Calc Pharmacy 150.4; Estimated Glomerular Filt Rate > 60; Glucose Random 108 mg/dL (60-115); Potassium 3.3 mmol/L (3.3-5.1); Sodium 139 mmol/L (135-145)
[2024-05-11] MEDS: LORazepam 1 MG TABLET PO (12:37)
[2024-05-11] MEDS: Cyclobenzaprine HCl 10 MG TABLET PO (12:37)
[2024-05-11 13:53] VITALS: BP 169/97; PULSE 106
[2024-05-11] MEDS: Amphetamine Mixed Salts 10 MG TABLET PO (13:54)
[2024-05-11] MEDS: cloNIDine HCL 0.2 MG TABLET PO (13:54)
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
== END 2024-05-11 16:45 | disposition home or self-care (01) | DRG 753 ==
PROVIDERS: Internal Medicine; Psychiatry & Neurology Psychiatry; Student in an Organized Health Care Education/Training Program; Admitting Provider Psychiatry & Neurology Psychiatry; Visit Provider Psychiatry & Neurology Psychiatry
DX: F31.9 Bipolar disorder, unspecified (principal); N17.9 Acute kidney failure, unspecified; E66.2 Morbid (severe) obesity with alveolar hypoventilation; R45.851 Suicidal ideations; R45.850 Homicidal ideations; Z68.44 Body mass index [BMI] 60.0-69.9, adult; I87.2 Venous insufficiency (chronic) (peripheral); R73.03 Prediabetes; F11.20 Opioid dependence, uncomplicated; T50.1X5A Adverse effect of loop [high-ceiling] diuretics, initial encounter; I89.0 Lymphedema, not elsewhere classified; F90.9 Attention-deficit hyperactivity disorder, unspecified type; E87.6 Hypokalemia; J45.20 Mild intermittent asthma, uncomplicated; F60.9 Personality disorder, unspecified; Z63.79 Other stressful life events affecting family and household; Z86.19 Personal history of other infectious and parasitic diseases; Z79.84 Long term (current) use of oral hypoglycemic drugs; Z87.891 Personal history of nicotine dependence; Z79.899 Other long term (current) drug therapy
CPT/HCPCS: 36415; 80048; 80053; 80061; 82565; 93005; 97161

== ENCOUNTER → 2024-05-01 12:23 | Outpatient (BNV) | payer OTHER, SELFPAY | PROVIDERS: Admitting Provider Psychiatry & Neurology Psychiatry; Visit Provider Student in an Organized Health Care Education/Training Program | DX: Z02.2 Encounter for examination for admission to residential institution (principal) | CPT/HCPCS: 99429; 99499 ==

== ENCOUNTER → 2024-05-01 12:23 | Outpatient (BNV) | payer OTHER, SELFPAY | PROVIDERS: Admitting Provider Psychiatry & Neurology Psychiatry; Responsible Provider Registered Nurse; Visit Provider Registered Nurse | DX: F60.9 Personality disorder, unspecified (principal); F31.4 Bipolar disorder, current episode depressed, severe, without psychotic features; F19.90 Other psychoactive substance use, unspecified, uncomplicated; F90.9 Attention-deficit hyperactivity disorder, unspecified type | CPT/HCPCS: 99231; 99232; 99239 ==

== ENCOUNTER 2025-01-01 13:00 | Emergency (ER) | payer OTHER, SELFPAY ==
--- NOTE | ~2025-01-01 | CT_ITS ---
CLINICAL HISTORY: hx of maxillary abscess, ongoing drainage pain CT maxillofacial with contrast Comparison: None Findings: No acute fractures. Nonacute fracture of left orbital medial wall. Temporomandibular joints are intact with no dislocation. Right maxillary sinus nearly completely opacified. Small mucous retention cyst/polyp in left maxillary sinus. The maxilla is edentulous with severe atrophy of the alveolar ridge. Remaining mandibular teeth demonstrate lucencies in the crowns consistent with caries. No mandibular periapical abscess. No soft tissue abscess. No adenopathy. No focal inflammatory stranding. Orbital structures are intact. Soft tissues in the nasopharynx and oropharynx and oral cavity are symmetric. Parotid glands and submandibular glands are unremarkable. IMPRESSION: 1. No evidence of an abscess. 2. Opacified right maxillary sinus. Small cyst/polyp left maxillary sinus. 3. Caries of remaining mandibular teeth. Maxilla is edentulous. This document has been electronically signed by: Coty Alcantara MD on 01/01/2025 17:31:06
[2025-01-01 12:59] VITALS: BP 140/82; PULSE 94; O2SAT 97
[2025-01-01 13:06] VITALS: BP 143/73; PULSE 98; RESP 20; TEMP 37; O2SAT 97; BMI 68.5
--- OUTSIDE RECORDS SUMMARY | 2025-01-01 13:49 | XMS_ITS | Encounter Summary ---
Author Organization [facility] r Address [address] [place] [address] Phone Care Team Providers Care Manager Labor Delivery Name Role Phone Marta Robbins NP Primary Care Provider [phone] Marta Robbins LEGAL OFFICE ADMINISTRATOR Unavailable [phone] Encounter Details Date Type Department Care Team (Late st Contact Info) Description 06/03/2023 Social Work [facility] [address] [place] [id number] Pauline Woodruff Social History Tobacco Use Types Packs/Day Years Used Date Smoking Tobacco: Every Day Cigarettes Alcohol Use Standard Drinks/Week Comments Yes 0 (1 standard drink = 0.6 oz pur e alcohol) Housing Answer Date Recorded What is your living situation today? I have a [facility] to live 05/30/2023 Sex and Gender Information Value Date Recorded Sex Assigned at Male 02/17/2023 3:45 PM EDT Legal Sex Male 10:57 PM EDT Gender Identity Male 05/30/2023 5:53 AM EDT Sexual Orientation Not on file documented as of this encounter Miscellaneous Notes * Social Work Note - Pauline Woodruff - 06/03/2023 3:42 PM EDT SOCIAL WORK [facility] PROGRESS NOTE Patient: Raji Montaño : 1985 Gender: male Hospital Course: Patient is a 38 y.o. male seen in [facility] for Assessment PRESENTING ISSUE Patient is looking for a friend or program to stay at once discharged. PROGRESS NOTE SW is supporting patient emotionally while he figures out discharge options. IMPRESSIONS SW called, There is a solution . SW spoke to a woman named Lennie who said he could not come back to the program due to having been admitted a few times and not making any progress. Patient checked in with some friends who could not let him stay there. The patient was waiting to hear back from other friends. PSYCHOSOCIAL INTERVENTIONS Emotional Support Case Management PLAN SW will remain available to the patient. Pauline Woodruff, [facility] Pager #[phone] For Evening and Weekend SW: Pager #[phone] TREATMENT TIME 30MIN documented in this encounter Plan of Treatment Not on file documented as of this encounter Visit Diagnoses Not on filedocumented in this encounter Care Teams Manager Labor Delivery Relationship Specialty Start Date End Date Marta Robbins NP [address] [place] [address] PCP - General 10/11/22 Marta Robbins NP [address] [place] [address] PCP - Insurance 12/07/22 documented as of this encounter
--- OUTSIDE RECORDS SUMMARY | 2025-01-01 13:49 | XMS_ITS | Encounter Summary ---
Author Organization [employer] [facility] Address [address] [place] [address] Care Team Providers Care Retail Route Supervisor Name Role Phone Physician, No Pcp Primary Care Provider Unavaila ble Reason for Visit * Reason Comments Abscess NASAL ABSCESS, SEEN AT [facility] AND ENT Encounter Details Date Type Department Care Team (Late st Contact Info) Description 12/28/2024 10:29 PM EDT - 12/29/2024 1:22 AM EDT Emergency [facility] Emergency [address] [place] [address] Other chronic sinusitis (Primary Dx) Discharge Disposition: Home or Self Care Social History Tobacco Use Types Packs/Day Years Used Date Smoking Tobacco: Never Assessed Sex and Gender Information Value Date Recorded Sex Assigned at Male 12/28/2024 11:12 PM EDT Legal Sex Male 8:18 PM EST Gender Identity Male 12/28/2024 11:12 PM EDT Sexual Orientation Straight 12/28/2024 11 :12 PM EDT documented as of this encounter Last Filed Vital Signs Vital Sign Reading Time Taken Comments Blood Pressure 133/67 12/28/2024 10:44 PM EDT Pulse 80 12/28/2024 10:44 PM EDT Temperature 36.9 ??C (98.4 ??F) 12/28/2024 10:44 PM E DT Respiratory Rate 18 12/28/2024 10:44 PM EDT Oxygen Saturation 100% 12/28/2024 10:44 PM EDT Inhaled Oxygen Concentration - - Weight 234 kg (514 lb 12.8 oz) 12/29/2024 12:23 AM EDT Height 170.2 cm (5' 7 ) 12/28/2024 12:47 PM EDT Body Mass Index 80.63 12/28/2024 12:47 PM EDT documented in this encounter Discharge Instructions * Discharge Instructions* ERIN Avila - 12/29/2024 12:59 AM EDT Please discontinue your Augmentin in lieu of the prescription for clindamycin and cefdinir. These should be effective in additionally treating positive MRSA screening. For definitive management of your problems you do need to follow-up faithfully with your ear nose and throat physician, particularly with troubleshooting getting you a CT if that is what is recommended. Please continue with additional supportive care regimen as discussed with your ENT. * Attachments The following attachments cannot be sent through Care Everywhere. * Chronic sinusitis (Icelandic) documented in this encounter Medications at Time of Discharge cefdinir (OMNICEF) 300 mg capsule Take 1 capsule (300 mg total) by mouth 2 (two) times a day for 7 days. 14 each 12/29/2024 01/05/2025 clindamycin (CLEOCIN) 300 mg capsule Take 1 capsule (300 mg total) by mouth 4 (four) times a day for 7 days. 28 each 12/29/2024 01/05/2025 documented as of this encounter Ordered Prescriptions Prescription Sig Dispense Quantity Refills Last Filled Start Date End Date cefdinir (OMNICEF) 300 mg capsule Take 1 capsule (300 mg total) by mouth 2 (two) times a day for 7 days. 14 each 12/29/2024 clindamycin (CLEOCIN) 300 mg capsule Take 1 capsule (300 mg total) by mouth 4 (four) times a day for 7 days. 28 each 12/29/2024 documented in this encounter Discharge Disposition Disposition Code Departure Means Destination Comment s Home or Self Care documented in this encounter Progress Notes * Anita Pacheco RN - 12/28/2024 12:50 PM EDT PT HAS ACUTE ON CHRONIC NASAL ABSCESS. HE WAS SEEN LAST WEEK AT [facility], THEN F/U WITH ENT. ENT RECOMMENDED CT SCAN. PT CAME TODAY BY EMS BECAUSE HE FEELS LIKE THE ABSCESS IS GETTING BIGGER. 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 Approximately 2 years ago he reports surgical intervention secondary to a dental infection. He has been having recurrence of his initial symptoms for the greater parts of 6 months tothe last year. Symptoms of pain in this area, foul tasting discharge that he taste in the back of his mouth that is affecting his breathing and appetite, nausea. He reports that he has been placed onmultiple rounds of antibiotics recently, he was seen at [facility] last week and reports that he was given Augmentin but previously he had taken several rounds of doxycycline. He did see an ENT approximately 5 days ago who swabbed him and he reports was positive for MRSA and she recommended an outpatient CT for further evaluation. Patient reports he did try to facilitate this image but the outpatient CT told him that his body habitus was too significant for his CAT scan and did not offer him any a lternatives. He has not reached out to ENT for further recommendation of this issue. No fever or chills presently. No headache, lightheadedness or dizziness. No neck pain or difficulty moving his neck, and no difficulty swallowing. ROS: I have performed a ROS with the pertinent positives and negatives documented in the history ofpresent illness. Previous History No past medical history on file. No past surgical history on file. No family history on file. is allergic to haloperidol. No current facility-administered medications on file prior to encounter. No current outpatient medications on file prior to encounter. Physical Exam ED Triage Vitals Temp Heart Rate Resp BP 12/28/24 1247 12/28/24 1247 12/28/24 1247 12/28/24 1247 36.8 ??C (98.2 ??F) 72 18 (!) 143/79 SpO2 Temp Source Heart Rate Source Patient Position 12/28/24 1247 12/28/24 1247 12/28/24 1751 12/28/24 1247 98 % Oral Other (Comment) Sitting BP Location FiO2 (%) 12/28/24 1751 -- Right arm;Lower Physical Exam Constitutional: General: He is awake. He is not in acute distress. Appearance: Normal appearance. He is not ill-appearing or toxic-appearing. HENT: Head: Normocephalic and atraumatic. Eyes: Conjunctiva/sclera: Conjunctivae normal. Pulmonary: Effort: Pulmonary effort is normal. No respiratory distress or retractions. Musculoskeletal: General: Normal range of motion. Cervical back: Normal range of motion and neck supple. Skin: General: Skin is warm and dry. Neurological: Mental Status: He is alert, oriented to person, place, and time and easily aroused. Mental status is at baseline. Gait: Gait normal. Psychiatric: Mood and Affect: Mood normal. Behavior: Behavior normal. Thought Content: Thought content normal. Judgment: Judgment normal. Results Labs Reviewed BASIC METABOLIC PANEL - Abnormal Result Value Sodium 136 Potassium 3.3 (*) Chloride 99 CO2 34 (*) Anion Gap 3 Glucose 100 BUN 12 Creatinine 1.28 eGFR 73 BUN/Creatinine Ratio 9.4 Calcium 9.9 CBC WITH AUTO DIFFERENTIAL - Abnormal WBC 7.7 RBC 4.50 Hemoglobin 12.7 (*) Hematocrit 39.6 (*) MCV 87.2 MCH 28.0 MCHC 32.1 RDW 13.6 Platelets 183 MPV 10.7 NRBC 0.0 NRBC Absolute 0.00 Neutrophils Relative 48.1 Lymphocytes Relative 38.5 Monocytes Relative 9.0 Eosinophils Relative 3.3 Basophils Relative 0.8 Immature Granulocytes Relative 0.3 Neutrophils Absolute 3.71 Lymphocytes Absolute 2.96 Monocytes Absolute 0.69 Eosinophils Absolute 0.25 Basophils Absolute 0.06 Immature Granulocytes Absolute 0.02 CBC AND DIFFERENTIAL Narrative: The following orders were created for panel order CBC and differential. Procedure Abnormality Status --------- ------ CBC auto differential[[id number]] Abnormal Final result Please view results for these tests on the individual orders. Abnormal Labs Reviewed BASIC METABOLIC PANEL - Abnormal; Notable for the following components: Result Value Potassium 3.3 (*) CO2 34 (*) All other components within normal limits CBC WITH AUTO DIFFERENTIAL - Abnormal; Notable for the following components: Hemoglobin 12.7 (*) Hematocrit 39.6 (*) All other components within normal limits No orders to display I have discussed the incidental/abnormal imaging and/or lab abnormalities with the patient and haveinstructed them the need for further evaluation and workup with their primary care doctor. I have provided the patient with a paper copy of the abnormality. The laboratory results, imaging results and other diagnostic exam results were reviewed in the EMR. EKG Interpretation Critical Care Time None ? Medical Decision Making DDX: Chronic bacterial sinusitis, polyp, abscess 39-year-old male presenting with concern for recurrent infection in the posterior nasal cavity/sinus over the last several months to 1 year. He does have active ENT involvement. 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 Review of outpatient records from [facility] shows that patient presented to the emergency department at [facility] on 12/21/2024 for concern of a recurrent infection in the back ofhis nose. He has completed 3 courses of doxycycline, the most recent of which was approximately 4 weeks ago prescribed by his PCP. He was prescribed a course of Augmentin changing from doxycycline atthat time for concern of possible bacterial sinusitis. He was discharged with a referral to follow-up with ENT. I am unable to see the records for ENT but he indicated to me that they swabbed him positive for MRSA and recommended outpatient CT. Patient was weighed today at 514 pounds, he exceeds the weight limit for a CAT scan and I do believe that he is appropriate for management of his imaging on an outpatient basis. He will be instructed to follow-up with ENT for further management of this issue, however given the positive MRSA screening will transition him to clinda and a third-generation cephalosporin as per up-to-date recommendations. Patient understands and is in agreement with this plan. Medications - No data to display Clinical Impressions as of 12/29/24 0712 Other chronic sinusitis Procedures Procedures Diagnosis 1. Other chronic sinusitis Disposition Discharge ED Prescriptions Medication Sig Dispense Start Date End Date Auth. Provider clindamycin (CLEOCIN) 300 mg capsule Take 1 capsule (300 mg total) by mouth 4 (four) times a day for 7 days. 28 each 12/29/2024 01/05/2025 ERIN Avila cefdinir (OMNICEF) 300 mg capsule Take 1 capsule (300 mg total) by mouth 2 (two) times a day for 7 days. 14 each 12/29/2024 01/05/2025 ERIN Avila Physician Attestation ERIN Avila 12/29/24 0016 ERIN Avila 12/29/24 0138 ERIN Avila 12/29/24 0712 Cosigned by Connor Silva MD at 12/31/2024 4:00 PM EDT documented in this encounter Plan of Treatment Not on file documented as of this encounter Procedures Procedure Name Priority Date/Time Associated Diagnosis Comments CBC WITH AUTO DIFFERENTIAL STAT 12/28/2024 3:10 PM EDT CBC AND DIFFERENTIAL STAT 12/28/2024 3:10 PM EDT BASIC METABOLIC PANEL STAT 12/28/2024 3:10 PM EDT documented in this encounter Results * (ABNORMAL) CBC auto differential (12/28/2024 3:10 PM EDT) WBC 7.7 4.8 - 10.8 K/mcL LAB HEMETOLOGY METHOD 12/28/2024 3:53 PM EDT [facility] RBC 4.50 4.50 - 5.50 M/mcL LAB HEMETOLOGY METHOD 12/28/2024 3:53 PM EDT [facility] Hemoglobin 12.7(L) 13.5 - 17.5 g/dL LAB HEMETOLOGY METHOD 12/28/2024 3:53 PM EDT [facility] Hematocrit 39.6(L) 42.0 - 54.0 % LAB HEMETOLOGY METHOD 12/28/2024 3:53 PM EDT [facility] MCV 87.2 79.0 - 98.0 FL LAB HEMETOLOGY METHOD 12/28/2024 3:53 PM EDT [facility] MCH 28.0 27.0 - 32.0 pcg LAB HEMETOLOGY METHOD 12/28/2024 3:53 PM EDT [facility] MCHC 32.1 32.0 - 37.0 g/dL LAB HEMETOLOGY METHOD 12/28/2024 3:53 PM EDT [facility] RDW 13.6 11.0 - 15.0 % LAB HEMETOLOGY METHOD 12/28/2024 3:53 PM EDT [facility] Platelets 183 130 - 400 K/mcL LAB HEMETOLOGY METHOD 12/28/2024 3:53 PM EDT [facility] MPV 10.7 7.0 - 11.0 FL LAB HEMETOLOGY METHOD 12/28/2024 3:53 PM EDT [facility] NRBC 0.0 <1.0 % LAB HEMETOLOGY [facility] NRBC Absolute 0.00 <0.10 K/mcL LAB HEMETOLOGY METHOD 12/28/2024 3:53 PM EDT [facility] Neutrophils Relative 48.1 % LAB HEMETOLOGY METHOD 12/28/2024 3:53 PM EDT [facility] Lymphocytes Relative 38.5 % LAB HEMETOLOGY METHOD 12/28/2024 3:53 PM EDT [facility] Monocytes Relative 9.0 % LAB HEMETOLOGY METHOD 12/28[facility]2024 3:[facility] Eosinophils Relative 3.3 % LAB HEMETOLOGY METHOD 12/28/2024 3:53 PM EDT [facility] Basophils Relative 0.8 % LAB HEMETOLOGY METHOD 12/28/2024 3:53 PM EDT [facility] Immature Granulocytes Relative 0.3 % LAB HEMETOLOGY METHOD 12/28/2024 3:53 PM EDT [facility] Neutrophils Absolute 3.71 1.50 - 7.00 K/mcL LAB HEMETOLOGY METHOD 12/28/2024 3:53 PM EDT [facility] Lymphocytes Absolute 2.96 1.00 - 5.00 K/mcL LAB HEMETOLOGY METHOD 12/28/2024 3:53 PM EDT [facility] Monocytes Absolute 0.69 0.20 - 1.00 K/mcL LAB HEMETOLOGY METHOD 12/28/2024 3:53 PM EDT [facility] Eosinophils Absolute 0.25 0.00 - 0.50 K/mcL LAB HEMETOLOGY METHOD 12/28/2024 3:53 PM EDT [facility] Basophils Absolute 0.06 0.00 - 0.20 K/mcL LAB HEMETOLOGY METHOD 12/28/2024 3:53 PM EDT [facility] Immature Granulocytes Absolute 0.02 0.00 - 0.03 K/mcL LAB HEMETOLOGY METHOD 12/28/2024 3:53 PM EDT [facility] Blood Venous blood specimen / Unknown Venipuncture / Unknown 12/28/2024 3:10 PM EDT 12/28/2024 3:41 PM EDT us Patrick Lindsey MD LAB BLOOD ORDERABLES Final Resu lt [facility] [address] [place] [address], * (ABNORMAL) Basic metabolic panel (12/28/2024 3:10 PM EDT) Sodium 136 133 - 145 mmol/L LAB CHEMISTRY METHOD 12/28/2024 4:16 PM [facility] Potassium 3.3(L) 3.5 - 5.5 mmol/L LAB CHEMISTRY METHOD 12/28/2024 4:16 PM [facility] Chloride 99 96 - 110 mmol/L LAB CHEMISTRY METHOD 12/28/2024 4:16 PM [facility] CO2 34(H) 21 - 32 mmol/L LAB CHEMISTRY METHOD 12/28/2024 4:16 PM [facility] Anion Gap 3 3 - 11 LAB CHEMISTRY METHOD 12/28/2024 4:16 PM [facility] Glucose 100 70 - 100 mg/dL LAB CHEMISTRY METHOD 12/28/2024 4:16 PM [facility] BUN 12 5 - 25 mg/dL LAB CHEMISTRY METHOD 12/28/2024 4:16 PM [facility] Creatinine 1.28 0.70 - 1.30 mg/dL LAB CHEMISTRY METHOD 12/28/2024 4:16 PM [facility] eGFR 73 >=60 mL/min/1. 73m2 LAB CHEMISTRY METHOD 12/28/2024 4:16 PM [facility] Comment:Calculation based on the??Chronic Kidney Disease Epidemiology Collaboration (CKD-EPI) equation refit??without adjustment for race. BUN/Creatinine Ratio 9.4 LAB CHEMISTRY METHOD 12/28/2024 4:16 PM [facility] Calcium 9.9 8.5 - 10.5 mg/dL LAB CHEMISTRY METHOD 12/28/2024 4:16 PM [facility] Blood Venous blood specimen / Unknown Venipuncture / Unknown 12/28/2024 3:10 PM EDT 12/28/2024 3:41 PM EDT us Patrick Lindsey MD LAB BLOOD ORDERABLES [facility] [address] [place] [address], documented in this encounter Visit Diagnoses Diagnosis Other chronic sinusitis- Primary documented in this encounter Care Teams Retail Route Supervisor Relationship Specialty Start Date End Date Physician, No Pcp PCP - General 12/28/24 documented as of this encounter
--- OUTSIDE RECORDS SUMMARY | 2025-01-01 13:49 | XMS_ITS | Clinical Summary ---
Author Organization [facility] Address [address] [place] [address] Phone Care Team Providers Care Cloth Doubling Machine Operator Name Role Phone Physician, No Pcp Primary Care Provider Unavaila ble Allergies Active Allergy Reactions Criticality Noted Date Comments Haloperidol Other,Muscular Issues,Unknown High 08/24/2015 Other reaction(s): Other (See Comments), Other (See Comments) Dystonia Dystonia Dystonia Dystonic reaction Medications clindamycin (CLEOCIN) 300 mg capsule Take 1 capsule (300 mg total) by mouth 4 (four) times a day for 7 days. 28 each 12/29/2024 5 Active cefdinir (OMNICEF) 300 mg capsule Take 1 capsule (300 mg total) by mouth 2 (two) times a day for 7 days. 14 each 12/29/2024 5 Active Encounters Date Type Department Care Team Description 12/28/2024 10:29 PM EDT - 12/29/2024 1:22 AM EDT Emergency [facility] Emergency [address] [place] [address] Other chronic sinusitis (Primary Dx) Discharge Disposition: Home or Self Care from Last 3 Months Social History Tobacco Use Types Packs/Day Years Used Date Smoking Tobacco: Never Assessed Sex and Gender Information Value Date Recorded Sex Assigned at Male 12/28/2024 11:12 PM EDT Legal Sex Male 8:18 PM EST Gender Identity Male 12/28/2024 11:12 PM EDT Sexual Orientation Straight 12/28/2024 11 :12 PM EDT Last Filed Vital Signs Vital Sign Reading [...] Mass Index 80.63 12/28/2024 12:47 PM EDT Plan of Treatment Health Maintenance Due Date Last Done Comments Hepatitis A Vaccines (1 of 2 - Risk 2-dose series) 2005 Hepatitis B Vaccines (1 of 3 - 19+ 3-dose series) 2005 Pneumococcal Vaccine: Pediat rics (0 to 5 Years) and At-Risk Patients (6 to 64 Years) (1 of 2 - PCV) 2005 Depression Screening 10/02/2023 HIV Screening 10/02/2023 Hepatitis C Screening 10/02/2023 Social Influencers of Health Screening 10/02/2023 COVID-19 Vaccine (1 - 2023-2 5 season) 2024 Influenza Vaccine (Season Ended) 2025 Cholesterol Screening (Lipid Panel) 10/10/2028 10/10/2023 DTaP,Tdap,and Td Vaccines (2 - Td or Tdap) 06/24/2032 06/24/2022 HIB Vaccines Aged Out No longer eligi ble based on patient's age to complete this topic HPV Vaccines Aged Out No longer eligi ble based on patient's age to complete this topic IPV Vaccines Aged Out No longer eligi ble based on patient's age to complete this topic MMR Vaccines Aged Out No longer eligi ble based on patient's age to complete this topic Meningococcal ACWY Vaccine Aged Out N o longer eligible based on patient's age to complete this topic Meningococcal B Vaccine Aged Out No l onger eligible based on patient's age to complete this topic RSV Immunization Patients Un sayda 20 months Aged Out No longer eligible b ased on patient's age to complete this topic Varicella Vaccines Aged Out No longer eligible based on patient's age to complete this topic Procedures Procedure Name Priority Date/Time Associated Diagnosis Comments CBC WITH AUTO DIFFERENTIAL STAT 12/28/2024 3:10 PM EDT BASIC METABOLIC PANEL STAT 12/28/2024 3:10 PM EDT CBC AND DIFFERENTIAL STAT 12/28/2024 3:10 PM EDT from Last 3 Months Results * (ABNORMAL) CBC auto differential (12/28/2024 3:10 PM EDT) [facility] WBC 7.7 4.8 - 10.8 K/mcL LAB HEMETOLOGY METHOD 12/28/2024 3:53 PM EDT [facility] RBC 4.50 4.50 - 5.50 M/mcL LAB HEMETOLOGY METHOD 12/28/2024 3:53 PM EDT [facility] Hemoglobin 12.7(L) 13.5 - 17.5 g/dL LAB HEMETOLOGY METHOD 12/28/2024 3:53 PM EDT [facility] Hematocrit 39.6(L) 42.0 - 54.0 % LAB HEMETOLOGY METHOD 12/28/2024 3:53 PM EDT [facility] MCV 87.2 79.0 - 98.0 FL LAB HEMETOLOGY METHOD 12/28/2024 3:53 PM EDT [facility] MCH 28.0 27.0 - 32.0 pcg LAB HEMETOLOGY METHOD 12/28/2024 3:53 PM EDT [facility] MCHC 32.1 32.0 - 37.0 g/dL LAB HEMETOLOGY METHOD 12/28/2024 3:53 PM EDT [facility] RDW 13.6 11.0 - 15.0 % LAB HEMETOLOGY METHOD 12/28/2024 3:53 PM EDT [facility] Platelets 183 130 - 400 K/mcL LAB HEMETOLOGY METHOD 12/28/2024 3:53 PM EDT [facility] MPV 10.7 7.0 - 11.0 FL LAB HEMETOLOGY METHOD 12/28/2024 3:53 PM EDT [facility] NRBC 0.0 <1.0 % LAB HEMETOLOGY METHOD 12/28/2024 3:53 PM [facility] NRBC Absolute 0.00 <0.10 K/mcL LAB HEMETOLOGY METHOD 12/28/2024 3:53 PM [facility] Neutrophils Relative 48.1 % LAB HEMETOLOGY METHOD 12/28/2024 3:53 PM [facility] Lymphocytes Relative 38.5 % LAB HEMETOLOGY METHOD 12/28/2024 3:53 PM [facility] Monocytes Relative 9.0 % LAB HEMETOLOGY METHOD 12/28/2024 3:53 PM [facility] Eosinophils Relative 3.3 % LAB HEMETOLOGY METHOD 12/28/2024 3:53 PM [facility] Basophils Relative 0.8 % LAB HEMETOLOGY METHOD 12/28/2024 3:53 PM [facility] Immature Granulocytes Relative 0.3 % LAB HEMETOLOGY METHOD 12/28/2024 3:53 PM [facility] Neutrophils Absolute 3.71 1.50 - 7.00 K/mcL LAB HEMETOLOGY METHOD 12/28/2024 3:53 PM [facility] Lymphocytes Absolute 2.96 1.00 - 5.00 K/mcL LAB HEMETOLOGY METHOD 12/28/2024 3:53 PM [facility] Monocytes Absolute 0.69 0.20 - 1.00 K/mcL LAB HEMETOLOGY METHOD 12/28/2024 3:53 PM [facility] Eosinophils Absolute 0.25 0.00 - 0.50 K/mcL LAB HEMETOLOGY METHOD 12/28/2024 3:53 PM [facility] Basophils Absolute 0.06 0.00 - 0.20 K/mcL LAB HEMETOLOGY METHOD 12/28/2024 3:53 PM EDT [facility] Immature Granulocytes Absolute 0.02 0.00 - 0.03 K/[facility] LAB HEMETOLOGY METHOD 12/28/2024 3:53 PM EDT [facility] Blood Venous blood specimen / Unknown Venipuncture / Unknown 12/28/2024 3:10 PM EDT 12/28/2024 3:41 PM EDT us Patrick Lindsey MD LAB BLOOD ORDERABLES Final Resu lt [facility] [address] [place] [address], [place] [phone] * (ABNORMAL) Basic metabolic panel (12/28/2024 3:10 PM EDT) Sodium 136 133 - 145 mmol/L LAB CHEMISTRY METHOD 12/28/2024 4:16 PM [facility] Potassium 3.3(L) 3.5 - 5.5 mmol/L LAB CHEMISTRY METHOD 12/28/2024 4:16 PM [facility] Chloride 99 96 - 110 mmol/L LAB CHEMISTRY METHOD 12/28/2024 4:16 PM [facility] CO2 34(H) 21 - 32 mmol/L LAB CHEMISTRY METHOD 12/28/2024 4:16 PM [facility] Anion Gap 3 3 - 11 LAB CHEMISTRY METHOD 12/28/2024 4:16 PM [facility] Glucose 100 70 - 100 mg/dL LAB CHEMISTRY METHOD 12/28/2024 4:16 PM [facility] BUN 12 5 - 25 mg/dL LAB CHEMISTRY METHOD 12/28/2024 4:16 PM [facility] Creatinine 1.28 0.70 - 1.30 mg/dL LAB CHEMISTRY METHOD 12/28/2024 4:16 PM EDT [facility] eGFR 73 >=60 mL/min/1. 73m2 LAB CHEMISTRY METHOD 12/28/2024 4:16 PM EDT [facility] Comment:Calculation based on the??Chronic Kidney Disease Epidemiology Collaboration (CKD-EPI) equation refit??without adjustment for race. BUN/Creatinine Ratio 9.4 LAB CHEMISTRY METHOD 12/28/2024 4:16 PM EDT [facility] Calcium 9.9 8.5 - 10.5 mg/dL LAB CHEMISTRY METHOD 12/28/2024 4:16 PM EDT [facility] Blood Venous blood specimen / Unknown Venipuncture / Unknown 12/28/2024 3:10 PM EDT 12/28/2024 3:41 PM EDT Patrick Lindsey MD LAB BLOOD ORDERABLES Final Resu lt [facility] [address] [place] [address], [place] [phone] from Last 3 Months Insurance [facility] [employer] Care Teams Cloth Doubling Machine Operator Relationship Specialty Start Date End Date Physician, No Pcp PCP - General 12/28/24
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
--- OUTSIDE RECORDS SUMMARY | 2025-01-01 13:49 | XMS_ITS | Encounter Summary ---
Author Organization [facility] Address [address] [place] [address] Care Team Providers Care Ordnance Truck Installation Mechanic Name Role Phone Marcello Reese DO Primary Care Provider [phone] Marta Robbins INTERIOR DESIGN COORDINATOR Primary Care Provider [phone] Reason for Referral * Diagnostic (Routine) - Closed Specialty Diagnoses / Procedures Referred By Opal toavr Referred To Contact Radiology Diagnoses Injury Procedures X-ray ankle left 3+ views Marcello Reese DO Phone: tel: fax: Referral ID Status Reason Start Date Expiration Date Visits Re quested Visits Authorized [id number] Closed 03/28/2022 03/28/2024 1 1 Encounter Details Date Type Department Care Team (Late st Contact Info) Description 03/28/2022 Ancillary Orders [facility] [address] [place] [id number] Marcello Reese DO [address] [facility] [address] [place] [address] [id number] Injury Social History Tobacco Use Types Packs/Day Years Used Date Smoking Tobacco: Never Smokeless Tobacco: Never Alcohol Use Standard Drinks/Week Comments No 0 (1 standard drink = 0.6 oz pur e alcohol) Sex and Gender Information Value Date Recorded Sex Assigned at Not on file Legal Sex Male 10:17 AM EST Gender Identity Not on file Sexual Orientation Not on file Occupation Industry Job Start Date Job End Date unemployed Not on file Not on file Not on file documented as of this encounter Plan of Treatment Not on file documented as of this encounter Results * X-ray ankle left 3+ views (03/28/2022 3:24 PM EDT) Anatomical Region Laterality Modality Leg, Ortho Ankle Digital Radiogr aphy 03/28/2022 3:41 PM EDT Impressions 03/28/2022 3:51 PM EDT IMPRESSION: Questionable fracture through the base of the fifth metatarsal on the lateral radiograph. If the patient has symptoms at this location then foot films are recommended. Soft tissue swelling. Probable ankle joint effusion. Possible tiny avulsion very inferior aspect medial malleolus. Subchondral lucency medial malleolus unchanged from last exam. Wet reading faxed to the office of Marcello Reese at 3:47 p.m. on 03/28/2022. Narrative 03/28/2022 3:51 PM EDT LEFT ANKLE 3 VIEWS: INDICATION: Pain and swelling ongoing for a week. Twisting injury at work. COMPARISON: January 2022 ankle radiograph FINDINGS: Circumferential soft tissue swelling. Ankle mortise appears intact. Subchondral lucency medial malleolus similar to last exam. Question tiny avulsion very inferior medial malleolus. Probable ankle joint effusion. Questionable lucency through the base of the fifth metatarsal on the lateral radiograph. If the patient has pain in this region then foot films recommended. Procedure Note Moises Mariscal MD - 03/28/2022 LEFT ANKLE 3 VIEWS: INDICATION: Pain and swelling ongoing for a week. Twisting injury at work. COMPARISON: January 2022 ankle radiograph FINDINGS: Circumferential soft tissue swelling. Ankle mortise appears intact.Subchondral lucency medial malleolus similar to last exam. Question tinyavulsion very inferior medial malleolus. Probable ankle joint effusion. Questionable lucency through the base of the fifth metatarsal on thelateral radiograph. If the patient has pain in this region then foot filmsrecommended. IMPRESSION: Questionable fracture through the base of the fifth metatarsal on thelateral radiograph. If the patient has symptoms at this location then footfilms are recommended. Soft tissue swelling. Probable ankle joint effusion. Possible tiny avulsion very inferior aspect medial malleolus. Subchondral lucency medial malleolus unchanged from last exam. Wet reading faxed to the office of Marcello Reese at 3:47 p.m. on03/28/2022. Marcello Reese DO IMG DIAGNOSTIC IMAGING ORDERABL ES Final Result documented in this encounter Visit Diagnoses Diagnosis Injury Injury, other and unspecified, unspecified site Injury Injury, other and unspecified, unspecified site documented in this encounter Additional Health Concerns Infection Onset Date Last Indicated Resolved Time R-GNO Comment:Cleared 01/02/24 nf R-GN E.coli urine 07/02/23; Added from external infection. Source: [facility]. 07/02/2023 01/02/2024 4:01 PM EDT PUI COVID 11/21/2023 11/21/2023 11/21/2023 10:5 8 AM EDT documented as of this encounter Care Teams Ordnance Truck Installation Mechanic Relationship Specialty Start Date End Date Marcello Reese DO [address] [place] [id number] PCP - General Looseleaf Binder Coverer 01/24/22 11/05/23 Marta Robbins, GRISELDA [address] [place] [phone] PCP - General Family Medicine 11/06/23 documented as of this encounter
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
--- OUTSIDE RECORDS SUMMARY | 2025-01-01 13:50 | XMS_ITS | Encounter Summary ---
Author Organization [facility]Note 3] Address [address] [place] [address] Care Team Providers Care Cream Maker Name Role Phone Marcello Reese DO Primary Care Provider [phone] Marta Robbins NP Primary Care Provider [phone] Encounter Details Date Type Department Care Team (Late st Contact Info) Description 07/02/[address] [facility] [address] [place] [phone] Social History Tobacco Use Types Packs/Day Years [...] Diagnoses Not on filedocumented in this encounter Additional Health Concerns Infection Onset Date Last Indicated Resolved Time R-GNO Comment:Cleared 01/02/24 nf R-GN E.coli urine 07/02/23; Added from external infection. Source: [facility]. 07/02/2023 01/02/2024 4:01 PM EDT PUI COVID 11/21/2023 11/21/2023 11/21/2023 10:5 8 AM EDT documented as of this encounter Care Teams Cream Maker Relationship Specialty Start Date End Date Marcello Reese DO [address] [place] [address] [address] [place] [address] PCP - General Hardware Press Operator 01/24/22 11/05/23 Marta Robbins NP [address] [place] [phone] PCP - General Family Medicine 11/06/23 documented as of this encounter
--- OUTSIDE RECORDS SUMMARY | 2025-01-01 13:50 | XMS_ITS | Encounter Summary ---
Author Organization [facility] r Address [address] [place] [address] Phone Care Team Providers Care Aircraft Accessories Mechanic Name Role Phone Marta Robbins NP Primary Care Provider [phone] Marta Robbins MELTING OPERATOR Unavailable [phone] Encounter Details Date Type Department Care Team (Late st Contact Info) Description 12/07/2022 Telephone Oral Surgery - [facility] [address] [facility] [address] [place] [address] Kaire Lott, [place] [address] Social History Tobacco Use Types Packs/Day Years Used Date Smoking Tobacco: Every Day Cigarettes Alcohol Use Standard Drinks/Week Comments Yes 0 (1 standard drink = 0.6 oz pur e alcohol) Housing Answer Date Recorded What is your living situation today? I d on't have a steady place to live (living with others, hotel, usp, outside on the street, on a bench, in a car, abandoned building, bus or train station, in a park) 12/07/2022 Sex and Gender Information Value Date Recorded Sex Assigned at Male 02/17/2023 3:45 PM EDT Legal Sex Male 10:57 PM EDT Gender Identity Male 05/30/2023 5:53 AM EDT Sexual Orientation Not on file COVID-19 Exposure Response Date Recorded In the last 10 days, have yo u been in contact with someone who was confirmed or suspected to have Coronavirus/COVID-19? No / Unsure 12/07/2022 2:00 AM EDT documented as of this encounter Functional Status * Calculated C-SSRS Risk Score (Lifetime/Recent) Answer Date of Assessment Author No Risk Indicated 12/07/2022 2:48 AM EDT Avis Gamez RN * Carbon Suicide Severity Rating Scale (Screener/Recent Self-Report) Question Answer Date of Assessment Author 1. Wish to be (Past 1 Month) No 023 2:48 AM EDT Radha Gamez RN 2. Non-Specific Active Suici almas Thoughts (Past 1 Month) No 12/07/2022 2:48 AM EDT Omar Gamez RN 6. Suicidal Behavior (Lifetime) No 2:48 AM EDT Radha Gamez RN documented as of this encounter Plan of Treatment Not on file documented as of this encounter Visit Diagnoses Not on filedocumented in this encounter Additional Health Concerns Infection Onset Date Last Indicated Resolved Time COVID-19 Rule Out 12/07/2022 12/07/2022 12/07/2022 4:47 AM EDT COVID-19 Rule Out 05/30/2023 05/30/2023 05/30/2023 6:30 AM EDT COVID-19 Rule Out 05/31/2023 05/31/2023 05/31/2023 2:42 PM EDT documented as of this encounter Care Teams Aircraft Accessories Mechanic Relationship Specialty Start Date End Date Marta Robbins NP [address] [place] [address] PCP - General 10/11/22 Marta Robbins NP [address] [place] [address] PCP - Insurance 12/07/22 documented as of this encounter
--- OUTSIDE RECORDS SUMMARY | 2025-01-01 13:50 | XMS_ITS | Encounter Summary ---
Author Organization [facility] Address [address] [place] [address] Care Team Providers Care Starch Factory Laborer Name Role Phone Marcello Reese DO Primary Care Provider [phone] Marta Robbins NP Primary Care Provider [phone] Encounter Details Date Type Department Care Team (Late st Contact Info) Description 06/24/2022 Procedure [facility] [address] [place] [address] Social History Tobacco Use Types Packs/Day Years [...] urine 07/02/23; Added from external infection. Source: [facility]. 07/02/2023 01/02/2024 4:01 PM EDT PUI COVID 11/21/2023 11/21/2023 11/21/2023 10:5 8 AM EDT documented as of this encounter Care Teams Starch Factory Laborer Relationship Specialty Start Date End Date Marcello Reese DO [address] [facility] [address] [place] [address] PCP - General Belt Picker 01/24/22 11/05/23 Marta Robbins NP [address] [place] [phone] PCP - General Family Medicine 11/06/23 documented as of this encounter
--- OUTSIDE RECORDS SUMMARY | 2025-01-01 13:50 | XMS_ITS | Encounter Summary ---
Author Organization [facility] Address [address] [place] [address] Care Team Providers Care Plastics Supervisor Name Role Phone Marta Robbins PUNCH MOLDER Primary Care Provider [phone] Reason for Referral * Diagnostic (Routine) - Authorized Specialty Diagnoses / Procedures Referred By Contac t Referred To Contact Radiology Diagnoses Pain Procedures X-ray knee right 1 or 2 views Ofelia Kaba NP [address] [place] [address] Phone: tel: fax: Referral ID Status Reason Start Date Expiration Date V isits Requested Visits Authorized [id number] Authorized 03/30/2024 03/30/2026 1 1 Encounter Details Date Type Department Care Team (Late st Contact Info) Description 03/30/2024 Ancillary Orders [facility] [address] [place] [phone] Ofelia Kaba NP [address] [place] [address] Pain (Primary Dx) Social History Tobacco Use Types Packs/Day Years Used Date Smoking Tobacco: Every Day Cigarettes Smokeless Tobacco: Never Alcohol Use Standard Drinks/Week [...] as of this encounter Results * X-ray knee right 1 or 2 views (03/30/2024 2:29 PM EDT) Anatomical Region Laterality Modality Thigh, Ortho Knee Digital Radiog elissa 03/30/2024 4:35 PM EDT Narrative 03/31/2024 10:43 AM EDT INDICATION: Right knee pain. Small joint effusion. Joint space narrowing medial compartment and tricompartmental marginal osteophyte formation consistent with changes of osteoarthritis. There is no acute lucent fracture or dislocation identified. RS: [id number] Procedure Note Guillaume Leung MD - 03/31/2024 INDICATION: Right knee pain. Small joint effusion. Joint space narrowing medial compartment andtricompartmental marginal osteophyte formation consistent with changes ofosteoarthritis. There is no acute lucent fracture or dislocationidentified. RS: [id number] Ofelia Kaba NP IMG DIAGNOSTIC IMAGING ORD ERABLES Final Result documented in this encounter Visit Diagnoses Diagnosis Pain- Primary Generalized pain Pain Generalized pain documented in this encounter Care Teams Plastics Supervisor Relationship Specialty Start Date End Date Marta Robbins NP [address] [place] [phone] PCP - General Family Medicine 11/06/23 documented as of this encounter
--- OUTSIDE RECORDS SUMMARY | 2025-01-01 13:50 | XMS_ITS | Encounter Summary ---
Author Organization [facility] Address [address] [place] [address] Care Team Providers Care Networking Engineer Name Role Phone Marcello Reese DO Primary Care Provider [phone] Marta Robbins NP Primary Care Provider [phone] Encounter Details Date Type Department Care Team (Late st Contact Info) Description 06/24/2022 Procedure Pass [facility] [address] [place] [address] Social History Tobacco Use Types [...] urine 07/02/23; Added from external infection. Source: [facility]. 07/02/2023 01/02/2024 4:01 PM EDT PUI COVID 11/21/2023 11/21/2023 11/21/2023 10:5 8 AM EDT documented as of this encounter Care Teams Networking Engineer Relationship Specialty Start Date End Date Marcello Reese DO [address] [place] [address] PCP - General Avionics Shop Supervisor 01/24/22 11/05/23 Marta Robbins NP [address] [place] [phone] PCP - General Family Medicine 11/06/23 documented as of this encounter
--- OUTSIDE RECORDS SUMMARY | 2025-01-01 13:50 | XMS_ITS | Encounter Summary ---
Author Organization [facility] Address [address] [place] [address] Care Team Providers Care Veterinary Receptionist Name Role Phone Marcello Reese DO Primary Care Provider [phone] Marta Robbins NP Primary Care Provider [phone] Encounter Details Date Type Department Care Team (Late st Contact Info) Description 07/01/[address] [place] [address] [place] [phone] Social History Tobacco Use Types Packs/Day Years [...] documented as of this encounter Care Teams Veterinary Receptionist Relationship Specialty Start Date End Date Marcello Reese DO [address] [place] [address] [address] [place] [address] PCP - General Optical Engineering Technician 01/24/22 11/05/23 Marta Robbins NP [address] [place] [phone] PCP - General Family Medicine 11/06/23 documented as of this encounter
--- OUTSIDE RECORDS SUMMARY | 2025-01-01 13:50 | XMS_ITS | Encounter Summary ---
Author Organization [facility] Address [address] [place] [address] Care Team Providers Care Virtual Assistant For Advertisers Name Role Phone Marta Robbins Jose Roberto PCB DESIGNER Primary Care Provider [phone] Encounter Details Date Type Department Care Team (Late st Contact Info) Description 12/08/2023 Lab Requisition [facility] [address] [place] [address] Rater, Tuan Kerr MD [address] [place] [phone] Alcohol abuse, uncomplicated; Bipolar disorder, current episode mixed, unspecified (HCC) Social History Tobacco Use Types Packs/Day Years [...] Procedure Name Priority Date/Time Associated Diagnosis Comments URINE CULTURE AND COLONY COUNT Routine 12/07/2023 10:45 AM EDT Alcohol abuse, uncomplicated Bipolar disorder, current episode mixed, unspecified (HCC) documented in this encounter Results * (ABNORMAL) Urine Culture and Buda Count (12/07/2023 10:45 AM EDT) Culture > 100,000 colonies/ml - presumptive Corynebacterium species(A) SUSCEPTIBI LITY TESTING 12/10/2023 10:40 AM EDT [facility] Comment:Susceptibility testi ng not performed on this isolate above Culture < 10,000 colonies/ml Yeast(A) SUSCEPTIBI LITY TESTING 12/10/2023 10:40 AM EDT [facility] Comment:Susceptibility testi ng not performed on this isolate above Urine Urine specimen obtained by clean catch procedure / Unknown Collection / Unknown 12/07/2023 10:45 AM EDT 12/08/2023 9:00 AM EDT Narrative [facility] - 12/10/2023 10:40 AM EDT Corynebacterium species Comment: Many species of the Corynebacteria are part of the microbiome of the skin and mucous membranes in humans and mammals. ??Clinically significant species show coryneform bacteria in the direct smear with a strong leukocyte reaction, and other organisms recovered from the same material are of low pathogenicity. Corynebacterium may exhibit a variety of susceptibility profiles, and many strains are highly susceptible. ??The antimicrobial agents often considered for therapy of Gram-Positive infections include Penicillins, Tetracyclines, and Sulfonamides. ??Macrolides, Glycopeptides, Lipopeptides and Linezolid are also very active against Corynebacterium. Agents to consider include Erythromycin, Gentamycin, Linezolid, Penicillin and Vancomycin. There is emergence of resistance to multiple drug classes; therefore, since the antimicrobial susceptibility of Corynebacterium is not predictable in every case, identification and susceptibility testing may be warranted in clinically significant isolates. ??If susceptibility testing is required, the isolate will be sent to an outside laboratory for testing. Source: ??Manual of Clinical Microbiology 11th Edition, Michael *Gonzalez *Abdifatah *Chrissy *Jose *Tiffany *Lauro us Tuan Monaco MD MICROBIOLOGY - GENERAL OR DERABLES Final Result [facility] [address] [place] [phone] documented in this encounter Visit Diagnoses Diagnosis Alcohol abuse, uncomplicated Bipolar disorder, current episode mixed, unspecified (HCC) documented in this encounter Additional Health Concerns Infection Onset Date Last Indicated Resolved Time R-GNO Comment:Cleared 01/02/24 nf R-GN E.coli urine 07/02/23; Added from external infection. Source: [facility]. 07/02/2023 01/02/2024 4:01 PM EDT documented as of this encounter Care Teams Virtual Assistant For Advertisers Relationship Specialty Start Date End Date Marta Robbins NP [address] [place] [phone] PCP - General Family Medicine 11/06/23 documented as of this encounter
--- OUTSIDE RECORDS SUMMARY | 2025-01-01 13:50 | XMS_ITS | Clinical Summary ---
Author Organization [facility] Address [address] [facility] Evelin Rodrigues [facility] [address] [place] [address] Care Team Providers Care Hairspring Cutter Name Role Phone Marta Robbins ASSOCIATE PROGRAM MANAGER Primary Care Provider [phone] Allergies Active Allergy Reactions Criticality Noted Date Comments Haloperidol 08/24/2015 Other reaction(s): Other (See Comments), Other (See Comments) Dystonia Dystonia Medications buprenorphine HCl/naloxone HCl (SUBOXONE SL) Place under the tongue. Active quetiapine fumarate (SEROQUEL ORAL) Take by mouth. Active lamotrigine (LAMICTAL ODT ORAL) Take by mouth. Active bupropion HCl (WELLBUTRIN SR ORAL) Take by mouth. Active duloxetine HCl (CYMBALTA ORAL) Take by mouth. Active GABAPENTIN ORAL Take by mouth. Active mirtazapine (REMERON ORAL) Take by mouth. Active cloNIDine (Catapres) 0.2 mg tablet Take 0.2 mg by mouth in the morning, at noon, and at bedtime. 10/02/2022 Active chlorhexidine (Peridex) 0.12 % solution 15 mL in the morning and at bedtime. 10/12/2022 Active Social History Tobacco Use Types Packs/Day Years Used Date Smoking Tobacco: Never Passive Smoke Exposure: Past Smokeless Tobacco: Never Tobacco Cessation:Counseling Given: Not Answered Sex and Gender Information Value Date Recorded Sex Assigned at Male 12/06/2022 5:40 AM EDT Legal Sex Male 12:11 AM EST Gender Identity Male 12/06/2022 5:40 AM EDT Sexual Orientation Not on file Last Filed Vital Signs Vital Sign Reading Time Taken Comments Blood Pressure 102/67 12/06/2022 4:54 AM EDT Pulse 108 12/06/2022 4:54 AM EDT Temperature 36.8 ??C (98.2 ??F) 12/06/2022 4:54 AM ED T Respiratory Rate 15 12/06/2022 4:54 AM EDT Oxygen Saturation 97% 12/06/2022 4:54 AM EDT Inhaled Oxygen Concentration - - Weight 204.1 kg (450 lb) 12/06/2022 1:09 AM EDT Height 182.9 cm (6') 12/06/2022 1:09 AM EDT Body Mass Index 61.03 12/06/2022 1:09 AM EDT Plan of Treatment Health Maintenance Due Date Last Done Comments HIV Screening 1986 MMR Vaccines (1 of 1 - Standard series) 1987 Varicella Vaccines (1 of 2 - 13+ 2-dose series) 1999 Hepatitis C Screening 2004 Hepatitis B Vaccines (1 of 3 - 19+ 3-dose series) 2005 Pneumococcal Vaccine: Pediatrics (0 to 5 Years) and At-Risk Patients (6 to 49 Years) (1 of 2 - PCV) 2005 COVID-19 Vaccine (1 - 2023-2 5 season) 2024 Depression Screening 09/08/2024 Influenza Vaccine (Season Ended) 2025 Lipid Panel 10/10/2028 10/10/2023, 12/31/2021 DTaP/Tdap/Td Vaccines (2 - T d or Tdap) 06/24/2032 06/24/2022 HIB Vaccines Aged Out No longer eligi ble based on patient's age to complete this topic HPV Vaccines Aged Out No longer eligi ble based on patient's age to complete this topic Hepatitis A Vaccines Aged Out No long er eligible based on patient's age to complete this topic IPV Vaccines Aged Out No longer eligi ble based on patient's age to complete this topic Meningococcal B Vaccine Aged Out No l onger eligible based on patient's age to complete this topic Meningococcal Vaccine Aged Out No edgardo audi eligible based on patient's age to complete this topic Rotavirus Vaccines Aged Out No longer eligible based on patient's age to complete this topic Insurance [facility] Care Teams Hairspring Cutter Relationship Specialty Start Date End Date Marta Robbins NP [address] [place] [phone] PCP - General Nurse Practitioner 10/12/22
--- OUTSIDE RECORDS SUMMARY | 2025-01-01 13:50 | XMS_ITS | Encounter Summary ---
Author Organization [facility] Address [address] [place] [address] Care Team Providers Care Compliance Paralegal Name Role Phone Marta Robbins HAND TUFTER Primary Care Provider [phone] Reason for Referral * Diagnostic (Routine) - Authorized Specialty Diagnoses / Procedures Referred By Controyce tvoar Referred To Contact Radiology Diagnoses Chronic hepatitis C without hepatic coma (HCC) Chronic hepatitis C virus genotype 3 infection (HCC) Procedures Ultrasound abdomen complete Ultrasound abdomen complete Marta Robbins NP [address] [place] [address] Phone: tel: fax: [facility] [address] [place] [address] Phone: tel: fax: Referral ID Status Reason Start Date Expiration Date V isits Requested Visits Authorized [id number] Authorized 02/28/2023 02/28/2025 1 1 Encounter Details Date Type Department Care Team (Late st Contact Info) Description 11/06/2023 Ancillary Orders [facility] [address] [place] [address] Marta Robbins NP [address] [place] [address] Chronic hepatitis C without hepatic coma (HCC) (Primary Dx); Chronic hepatitis C virus genotype 3 infection (HCC) Social History Tobacco Use Types Packs/Day [...] as of this encounter Plan of Treatment Scheduled Orders Name Type Priority Associated Diagnoses Orde r Schedule Ultrasound abdomen complete Imaging Routine Chronic hepatitis C without hepatic coma (HCC) Chronic hepatitis C virus genotype 3 infection (HCC) 1 Occurrences starting 02/28/2023 until 02/28/2025 documented as of this encounter Visit Diagnoses Diagnosis Chronic hepatitis C without hepatic coma (HCC)- Primary Chronic hepatitis C virus genotype 3 infection (HCC) documented in this encounter Additional Health Concerns Infection Onset Date Last Indicated Resolved Time R-GNO Comment:Cleared 01/02/24 nf R-GN E.coli urine 07/02/23; Added from external infection. Source: [facility]. 07/02/2023 01/02/2024 4:01 PM EDT PUI COVID 11/21/2023 11/21/2023 11/21/2023 10:5 8 AM EDT documented as of this encounter Care Teams Compliance Paralegal Relationship Specialty Start Date End Date Marta Robbins NP [address] [place] [phone] PCP - General Family Medicine 11/06/23 documented as of this encounter
--- OUTSIDE RECORDS SUMMARY | 2025-01-01 13:50 | XMS_ITS | Encounter Summary ---
Author Organization [facility] Address [address] [place] [address] Phone Care Team Providers Care Administrative Support Clerk Name Role Phone Marta Robbins NP Primary Care Provider Marta Robbins SUPPLY CHAIN INTERN Unavailable [phone] Reason for Visit * Reason Comments Automated Refill Request Encounter Details Date Type Department Care Team (Late st Contact Info) Description 01/31/2024 Refill Pediatrics Offsite Locations [address] [place] [address] [address] [place] [phone] [place] [address] Social History Tobacco Use Types Packs/Day Years Used Date Smoking Tobacco: Every Day Cigarettes Alcohol Use Standard Drinks/Week Comments Yes 0 (1 standard drink = 0.6 oz pur e alcohol) Housing Answer Date Recorded What is your living situation today? I have a [facility] to live 07/29/2023 EOV Answer Date Recorded [...] as of this encounter Miscellaneous Notes * Telephone Encounter - Jessie Milton RN - 01/31/2024 10:01 AM EDT Not pedi patient documented in this encounter Plan of Treatment Not on file documented as of this encounter Visit Diagnoses Not on filedocumented in this encounter Care Teams Administrative Support Clerk Relationship Specialty Start Date End Date Marta Robbins NP [address] [place] [address] PCP - General 10/11/22 Marta Robbins NP [address] [place] [address] PCP - Insurance 12/07/22 documented as of this encounter
--- OUTSIDE RECORDS SUMMARY | 2025-01-01 13:50 | XMS_ITS | Encounter Summary ---
Author Organization [facility] Address [address] [place] [address] Care Team Providers Care Employment Specialist/Program Manager Name Role Phone Marcello Reese DO Primary Care Provider [phone] Marta Robbins NP Primary Care Provider [phone] Encounter Details Date Type Department Care Team (Late st Contact Info) Description 06/24/2022 Procedure Pass [facility] [address] [place] [address] Social History Tobacco Use Types [...] urine 07/02/23; Added from external infection. Source: [facility]. 07/02/2023 01/02/2024 4:01 PM EDT PUI COVID 11/21/2023 11/21/2023 11/21/2023 10:5 8 AM EDT documented as of this encounter Care Teams Employment Specialist/Program Manager Relationship Specialty Start Date End Date Marcello Reese DO [address] [facility] [address] [place] [address] PCP - General Center Machine Operator 01/24/22 11/05/23 aMrta Robbins NP [address] [place] [phone] PCP - General Family Medicine 11/06/23 documented as of this encounter
--- OUTSIDE RECORDS SUMMARY | 2025-01-01 13:50 | XMS_ITS | Encounter Summary ---
Author Organization [facility] Address [address] [place] [address] Care Team Providers Care Button Clamper Name Role Phone Marcello Reese DO Primary Care Provider [phone] Marta Robbins NP Primary Care Provider [phone] Encounter Details Date Type Department Care Team (Late st Contact Info) Description 07/03/[address] [place] [address] [place] [phone] Social History Tobacco Use Types Packs/Day Years [...] urine 07/02/23; Added from external infection. Source: [facility]. 07/02/2023 01/02/2024 4:01 PM EDT PUI COVID 11/21/2023 11/21/2023 11/21/2023 10:5 8 AM EDT documented as of this encounter Care Teams Button Clamper Relationship Specialty Start Date End Date Marcello Reese DO [address] [place] [address] [address] [place] [address] PCP - General Ethylbenzene Oxidizer 01/24/22 11/05/23 Marta Robbins NP [address] [place] [phone] PCP - General Family Medicine 11/06/23 documented as of this encounter
--- OUTSIDE RECORDS SUMMARY | 2025-01-01 13:50 | XMS_ITS | Encounter Summary ---
Author Organization [facility] Address [address] [place] [address] Care Team Providers Care Countersinker Name Role Phone Marcello Reese Primary Care Provider [phone] Marta Robbins NP Primary Care Provider [phone] Encounter Details Date Type Department Care Team (Late st Contact Info) Description 09/09/2022 Lab Requisition [facility] [address] [place] [id number] Bj Benitez MD [address] [place] [phone] Illness, unspecified Social History Tobacco Use Types Packs/Day Years [...] Procedure Name Priority Date/Time Associated Diagnosis Comments HEIDY SCREEN, IFA, WITH REFLEX TO TITER AND PATTERN/LUPUS PANEL Routine 09/09/2022 9:37 AM EST Illness, unspecified COMP METABOLIC PANEL W/ LIPASE Routine 09/09/2022 9:37 AM EST Illness, unspecified SEDIMENTATION RATE, AUTOMATED Routine 09/09/2022 9:37 AM EST Illness, unspecified CBC AND AUTO DIFFERENTIAL Routine 09/09/2022 9:37 AM EST Illness, unspecified RHEUMATOID FACTOR Routine 09/09/2022 9:3 7 AM EST Illness, unspecified documented in this encounter Results * (ABNORMAL) Comp Metabolic Panel W/ Lipase (09/09/2022 9:37 AM EST) Sodium 138 136 - 145 mEq/L 09/09/2022 12:15 PM [facility] Potassium 4.4 3.5 - 5.1 mEq/L 09/09/2022 12:15 PM [facility] Chloride 105 98 - 107 mEq/L 09/09/2022 12:15 PM [facility] CO2 31 20 - 31 mEq/L 09/09/2022 12:15 PM [facility] Anion Gap 2(L) 4 - 15 mEq/L 09/09/2022 12:15 PM [facility] Glucose 80 70 - 100 mg/dL 09/09/2022 12:15 PM [facility] Creatinine 0.66 0.60 - 1.10 mg/dL 09/09/2022 12:15 PM [facility] eGFR (Male) >60 60 - 115 mL/min 09/09/2022 12:15 PM [facility] BUN 16 9 - 23 mg/dL 09/09/2022 12:15 PM [facility] Calcium 10.0 8.7 - 10.4 mg/dL 09/09/2022 12:15 PM [facility] Albumin 3.7 3.2 - 4.8 g/dL 09/09/2022 12:15 PM [facility] A/G Ratio 1.1 1.0 - 2.3 09/09/2022 12:15 PM [facility] Total Bilirubin 0.4 0.2 - 1.0 mg/dL 09/09/2022 12:15 PM [facility] AST 46(H) 13 - 40 U/L 09/09/2022 12:15 PM EST [facility] Alkaline Phosphatase 76 46 - 116 IU/L 09/09/2022 12:15 PM EST [facility] ALT 58(H) 7 - 40 U/L 09/09/2022 12:15 PM EST [facility] Lipase 34 12 - 53 U/L 09/09/2022 12:15 PM EST [facility] Total Protein 7.0 5.7 - 8.2 g/dL 09/09/2022 12:15 PM EST [facility] Blood specimen (specimen) 09/09/2022 9:37 AM EST 09/09/2022 11:38 AM EST [facility] - 09/09/2022 12:15 PM EST Reference range has been changed as of 06/06/2020. us Bj Benitez MD LAB BLOOD ORDERABLES Final Resul t Performing Organization Address City/[facility] Co de Phone Number [facility] [address] [place] [phone] * Rheumatoid Factor (09/09/2022 9:37 AM EST) Rheumatoid Factor <4 <14 IU/ml 09/09/2022 12:26 PM EST [facility] Blood specimen (specimen) Venipuncture / Unknown 09/09/2022 9:37 AM EST 09/09/2022 11:38 AM EST Narrative [facility] - 09/09/2022 12:26 PM EST Reference range has been changed as of 06/06/2020. us Bj Benitez MD LAB BLOOD ORDERABLES Final Resul t Performing Organization Address City/[facility] Co de Phone Number [facility] [address] [place] [phone] * (ABNORMAL) CBC and Auto Differential (09/09/2022 9:37 AM EST) WBC 4.0(L) 4.8 - 11.2 10*3/??L 09/09/2022 11:56 AM [facility] RBC 4.60 4.00 - 5.90 10*6/??L 09/09/2022 11:56 AM [facility] HGB 12.7(L) 14.0 - 17.2 g/dL 09/09/2022 11:56 AM [facility] HCT 39.6(L) 40.0 - 52.0 % 09/09/2022 11:56 AM [facility] MCV 86.0 82.0 - 98.0 fL 09/09/2022 11:56 AM [facility] MCH 27.5 27.0 - 35.0 pg 09/09/2022 11:56 AM [facility] MCHC 32.0 32.0 - 37.0 g/dL 09/09/2022 11:56 AM [facility] RDW 14.3 12.0 - 15.0 % 09/09/2022 11:56 AM [facility] PLT 129(L) 150 - 400 10*3/??L 09/09/2022 11:56 AM [facility] MPV 9.7 7.0 - 14.0 fL 09/09/2022 11:56 AM [facility] Neut % 32.2(L) 45.0 - 85.0 % 09/09/2022 11:56 AM [facility] Lymph % 47.6(H) 15.0 - 45.0 % 09/09/2022 11:56 AM [facility] Sharkey % 13.2(H) 0.0 - 12.0 % 09/09/2022 11:56 AM [facility] Eos % 6.0 0.0 - 7.0 % 09/09/2022 11:56 AM [facility] Baso % 1.0 0.0 - 3.0 % 09/09/2022 11:56 AM [facility] NRBC% 0 0 /100 WBC /100 WBC 09/09/2022 11:56 AM [facility] Neut # 1.3(L) 2.2 - 9.5 10*3/??L 09/09/2022 11:56 AM EST [facility] Lym # 1.9 0.7 - 5.0 10*3/??L 09/09/2022 11:56 AM EST [facility] Sharkey # 0.5 0.0 - 1.3 10*3/??L 09/09/2022 11:56 AM EST [facility] Eos # 0.2 0.0 - 0.4 10*3/??L 09/09/2022 11:56 AM EST [facility] Baso # 0.0 0.0 - 0.3 10*3/??L 09/09/2022 11:56 AM EST [facility] Blood specimen (specimen) Venipuncture / Unknown 09/09/2022 9:37 AM EST 09/09/2022 11:38 AM EST us Bj Benitez MD LAB BLOOD ORDERABLES Final Resul t Performing Organization Address City/[facility]/ZIP Co de Phone Number [address] [phone] * (ABNORMAL) Sedimentation Rate, automated (09/09/2022 9:37 AM EST) Pathologist [facility] Sed Rate 27(H) 0 - 15 mm/hr 09/09/2022 12:16 PM EST [facility] Blood specimen (specimen) Venipuncture / Unknown 09/09/2022 9:37 AM EST 09/09/2022 11:38 AM EST us Bj Benitez MD LAB BLOOD ORDERABLES Final Resul t Performing Organization Address City/[facility]/ZIP Co de Phone Number [facility] [address] [place] [phone] * (ABNORMAL) HEIDY + REFLEX TITER/PATTERN/LUPUS PANEL (09/09/2022 9:37 AM EST) C3 Complement 114 82 - 185 mg/dL 09/13/2022 11:01 AM EST [facility] C4 Complement 12(L) 15 - 53 mg/dL 09/13/2022 11:01 AM EST Agent Partner [facility] Thyroid Peroxidase Antibody 5 <9 IU/mL 09/13/2022 11:01 AM [facility] Heidy Screen NEGATIVE NEGATIVE 09/13/2022 11:01 [facility] Comment: HEIDY IFA is a first line screen for detecting the presence of up to approximately 150 autoantibodies in various autoimmune diseases. A negative HEIDY IFA result suggests an HEIDY-associated autoimmune disease is not present at this time, but is not definitive. If there is high clinical suspicion for Sjogren's syndrome, testing for anti-SS-A/Ro antibody should be considered. Anti-Letitia-1 antibody should be considered for clinically suspected inflammatory myopathies. AC-0: Negative International Consensus on HEIDY Patterns (https://doi.org/10.1515/ojow-4146-2023) For additional information, please refer to http://education.Feifei.com/faq/UWW198 (This link is being provided for informational/ educational purposes only.) ?? dsDNA Antibody 43(H) IU/mL 09/13/2022 11:01 [facility] Comment: ? IU/mL ? Interpretation ? < or = 4 ?Negative ? 5-9 ? Indeterminate ? > or = 10 ?? Positive Sjogrens syndrome-A extractable nuclear Ab <1.0 NEG <1.0 NEG AI 09/13/2022 11:01 AM EST Agent Partner [facility] Sjogrens syndrome-B extractable nuclear Ab <1.0 NEG <1.0 NEG AI 09/13/2022 11:01 EST Agent Partner [facility] Sm (Krueger) IgG Antibodies <1.0 NEG <1.0 NEG AI 09/13/2022 11:01 AM EST [facility] SM/TAR HEATER Antibody <1.0 NEG <1.0 NEG AI 09/13/19 11:01 AM EST [facility] SCL-70 extractable nuclear Ab <1.0 NEG <1.0 NEG AI 09/13/2022 11:01 AM EST [facility] Ribosomal P Ab <1.0 NEG <1.0 NEG AI 3 11:01 AM EST [facility] Rheumatoid Factor <14 <14 IU/mL 023 11:01 AM EST [facility] Blood specimen (specimen) 09/09/2022 9:37 AM EST 09/09/2022 11:38 AM EST Narrative [facility] - 09/13/2022 11:01 AM EST Performing Organization Information: ?Site ID: [id number] ?Name: [email or web address] ?Address: [address] [place] [address] (1[place] [address] ?Director: Nick Ann M.D. Bj Benitez MD LAB BLOOD ORDERABLES Final Resul t ELLIE ALONSO [address] [place] [phone] documented in this encounter Visit Diagnoses Diagnosis Illness, unspecified documented in this encounter Additional Health Concerns Infection Onset Date Last Indicated Resolved Time R-GNO Comment:Cleared 01/02/24 nf R-GN E.coli urine 07/02/23; Added from external infection. Source: [facility]. 07/02/2023 01/02/2024 4:01 PM EDT PUI COVID 11/21/2023 11/21/2023 11/21/2023 10:5 8 AM EDT documented as of this encounter Care Teams Countersinker Relationship Specialty Start Date End Date Marcello Reese DO [address] [place] [address] [address] [place] [address] PCP - General Errand Runner 01/24/22 11/05/23 Marta Robbins NP [address] [place] [phone] PCP - General Family Medicine 11/06/23 documented as of this encounter
--- NOTE | 2025-01-01 14:03 | ED.GENADULT ---
HPI - General Adult General Chief complaint: General Medical Stated complaint: SINUS INFECTION Time Seen by Provider: 01/01/25 14:03 Source: patient, RN notes reviewed and old records reviewed Mode of arrival: ambulatory Limitations: no limitations History of Present Illness ED Provider: Sujit HURLEY narrative: Patient is a 39-year-old male with history of ADHD, Bipolar disorder, personality disorder, polysubstance use disorder presenting with complaint of right maxillary sinus pain, drainage and foul smell as well as sweats chills and body aches for the past 1-2 weeks. Reports history of abscess of right maxillary sinus which required surgery performed in [place] around 1.5 years ago. Told at that time his infection was due to MRSA. Went to [facility] last week and states he did not have any labs drawn or imaging obtained. Then went to [facility] where he was prescribed clindamycin, which he still has a few days left of until completion. He followed up with ENT in [place], was told he would need a CT. States he cannot tolerate the pain/smell any longer. MD complaint: sinus infection Onset (ago): week(s) Location: face Related Data Home Medications ?Medication ?Instructions ?Recorded ?Confirmed quetiapine 50 mg tablet (Seroquel) 50 mg PO Q6H PRN severe 05/01/24 05/01/24 anxiety/agitation Previous Rx's ?Medication ?Instructions ?Recorded albuterol sulfate 90 mcg/actuation 2 puff inhalation RQ4H PRN 03/02/24 aerosol inhaler (Ventolin HFA) Shortness Of Breath #0 grams ammonium lactate 12 % lotion 1 appl topical BID #0 grams 03/02/24 buprenorphine 8 mg-naloxone 2 mg 1 film buccal TID 7 days #21 ea 05/11/24 sublingual film bupropion HCl 300 mg 24 hr tablet, 300 mg PO DAILY 300 days #300 tabs 05/11/24 extended release clonidine HCl 0.2 mg tablet 0.2 mg PO BID PRN anxiety 30 days 05/11/24 #60 tabs cyclobenzaprine 10 mg tablet 10 mg PO TID PRN Muscle Spasm 14 05/11/24 days #42 tabs dextroamphetamine-amphetamine 10 10 mg PO DAILY@1500 14 days #14 05/11/24 mg tablet tabs dextroamphetamine-amphetamine ER 20 mg (2 x 10 mg) PO DAILY 14 days 05/11/24 10 mg 24hr capsule,extend release #28 caps (Adderall XR) gabapentin 400 mg capsule 800 mg (2 x 400 mg) PO TID 30 days 05/11/24 #180 caps lamotrigine 25 mg tablet 325 mg (13 x 25 mg) PO BEDTIME 30 05/11/24 days #390 tabs lorazepam 1 mg tablet 1 mg PO BID PRN Anxiety 14 days 05/11/24 #28 tabs melatonin 3 mg tablet 9 mg (3 x 3 mg) PO BEDTIME 30 days 05/11/24 #90 tabs metformin 500 mg tablet 500 mg PO BIDWM 30 days #60 tabs 05/11/24 naloxone 4 mg/actuation nasal 4 mg intranasal Q2M PRN opioid 05/11/24 spray (Narcan) overdose 1 day #2 ea omeprazole 40 mg capsule,delayed 40 mg PO BID@0630,1630 30 days #60 05/11/24 release caps prazosin 5 mg capsule 10 mg (2 x 5 mg) PO BEDTIME 30 05/11/24 days #60 caps quetiapine 300 mg tablet (Seroquel) 400 mg (1.3333 x 300 mg) PO 05/11/24 BEDTIME 30 days #40 tabs torsemide 20 mg tablet 80 mg PO BID 30 days #240 tabs 05/11/24 Allergies Allergy/AdvReac Type Severity Reaction Status Date / Time haloperidol [From Haldol] Allergy Unknown Verified 01/01/25 13:06 trazodone AdvReac restless Verified 01/01/25 13:06 leg syndrome Review of Systems Review of Systems: As per HPI Yes all other systems are reviewed and are negative Constitutional: Constitutional: Reports as per HPI [facility] Past Medical History Medical History GERD (gastroesophageal reflux disease) Mild intermittent asthma Obesity, Class III, BMI 40-49.9 (morbid obesity) Chronic lower back pain Hepatitis C Polysubstance use disorder ADHD Bipolar disorder Social History Social History Household Members: Other Housing: Homeless Do you presently have visiting nurse or other home services: No Patient Tobacco Use Status: Former Tobacco user Tobacco use type: Cigarette Years Smoked: 17 years e-Cigarette/Vaping Use: Currently Using Second Hand Smoke Exposure: Yes Substance Use Type: Club/Property Man Drugs, Crack/Cocaine, Hallucinogens, Heroin, Marijuana, Opiates, Painkillers and Prescription Drugs Advance Directives: No Advance Directives Information Provided: No service: No Sexual orientation: Did not discuss Physical Exam ED Vital Signs: Vital Signs - 24 hr 01/01/25 13:06 Temperature 98.6 F Pulse Rate 98 Respiratory Rate 20 Blood Pressure 143/73 H Pulse Oximetry 97 Oxygen Delivery Method Room Air BMI result Body Mass Index 68.5 Vital signs have been reviewed and appear to be correct. Blood pressure normal. Heart rate normal. Respiratory rate normal. Temperature normal. Oxygen saturation normal. Const General: cooperative and no acute distress Nutritional Appearance: obese Orientation/consciousness: oriented to person, oriented to place, oriented to time and patient oriented x3 Limitations: no limitations HENMT Head: Yes normocephalic and Yes atraumatic Ears: external ears normal General nose exam: Normal external nose present, Normal nasal mucous membranes and turbinates present and No nasal discharge present Face and sinus: Yes face symmetric, Yes normal transillumination of sinuses, No edema, Yes sinus tenderness (right maxillary) and Yes other (no erythema ) Mouth: Normal oral and palatal mucosa present, oropharynx normal, moist mucous membranes, no drooling, no trismus and other (voice hoarse) Teeth and gingiva: edentulous Throat: Yes uvula midline and No uvular edema Eyes Pupils: Equal, round and reactive pupils present Neck Neck: Yes normal visual inspection and Yes supple Resp Effort & Inspection: normal respiratory effort and able to speak in complete sentences Auscultation: clear to auscultation bilaterally Cardio Rate: regular rate Rhythm: regular rhythm Heart sounds: S1 normal heart sound present and S2 normal heart sound present GI Palpation (GI): Soft to palpation and nontender Auscultation: normoactive bowel sounds General: Yes no CVA tenderness Back/Spine/Pelvis Back: no CVA tenderness Skin General skin exam: elasticity normal and turgor normal Neuro General: oriented to person, oriented to place, oriented to time, patient oriented x3, moves all extremities, no focal motor deficits and CN's II-XI intact bilaterally Cranial nerves: Yes Equal, round and reactive pupils present Cognition (Neuro): normal cognition Extrem General: Yes full ROM, Yes no pedal edema and Yes no calf tenderness Psych Mental Status: mental status grossly normal Affect: normal affect Thought process: Normal thought process present Medications Administered Discontinued Medications Generic Name Dose Route Start Last Admin Trade Name Poncho PRN Reason Stop Dose Admin Iohexol 85 ml 01/01/25 15:36 01/01/25 15:37 Iohexol 350 Mg/Ml 100 Ml Infus..Btl IV 01/01/25 15:37 85 ml ONCE ONE Administration Medical Decision Making Medical Decision Making [facility] Narrative: Patient is a 39-year-old male with history of ADHD, Bipolar disorder, personality disorder, polysubstance use disorder presenting with complaint of right maxillary sinus pain, drainage and foul smell as well as sweats chills and body aches for the past 1-2 weeks. On exam patient is awake, A+Ox3, VS WNL, afebrile, normal neurological exam without focal deficits, physical exam findings as above. Given reported symptoms and physical exam findings, initial differential includes but is not limited to sinus infection, abscess. Do not suspect sepsis. Labs notable for no leukocytosis, mildly elevated ESR and CRP. CT notable for right maxillary opacification without abscess. My interpretation is in agreement with the radiologist's interpretation. Results discussed with patient and all questions answered. Feel patient does not require admission at this time. Advised patient to complete full course of clindamycin and follow-up with ENT, will provide patient with CT results as well as instructions for patient portal. Return precautions discussed. Patient verbalized understanding of and agreement with plan. Differential Diagnosis Differential Diagnoses: The differential diagnosis associated with the presentation includes As per [facility] Admission/Observation Consideration of admission/observation: Escalation of care including admission/observation considered Patient would have been admitted to the hospital had their work up had any findings where hospital admission was appropriate and their clinical presentation warranted hospital admission. Lab Data [facility] Lab Attestation statement: I reviewed the patient's lab results. as per [facility] 01/01/25 14:55 01/01/25 14:56 Labs: Lab Results 01/01/25 01/01/25 Range/Units 14:55 14:56 WBC 8.2 (4.8-10.8) X10*3/uL RBC 4.68 (4.60-5.80) X10*6/uL Hgb 13.1 L (14.0-18.0) g/dl Hct 39.2 L (42.0-52.0) % MCV 83.8 (80.0-98.0) fL MCH 28.0 (27.0-33.0) pg MCHC 33.4 (31.0-36.0) g/dl RDW 13.6 (11.0-16.0) % Plt Count 191 (160-400) X10*3/uL MPV 10.3 (9.4-12.4) fL Immature Gran % (Auto) 0.4 (0.0-0.4) % Neut % (Auto) 51.6 (45-73) % Lymph % (Auto) 36.6 (20-40) % Berg[place] % (Auto) 7.8 (2-11) % Eos % (Auto) 2.7 (0-4) % Baso % (Auto) 0.9 (0-2) % Lymph # (Auto) 3.0 (1.2-4.9) X10*3/uL [place] # (Auto) 0.6 (0.1-1.2) X10*3/uL Eos # (Auto) 0.2 (0.0-0.4) X10*3/uL Baso # (Auto) 0.1 (0.0-0.2) X10*3/uL Abs Immat Gran (auto) 0.03 (0.00-0.03) X10*3/uL Absolute Neuts (auto) 4.3 (2.0-8.3) x10*3/uL Absolute Nucleated RBC 0.000 (0.0-0.012) X10*3/uL Nucleated RBC % (auto) 0.0 (0.0-0.2) /100WBC ESR 43 H (0-15) MM/HR Sodium 138 (135-145) mmol/L Potassium 3.3 (3.3-5.1) mmol/L Chloride 97 (96-108) mmol/L Carbon Dioxide 30 H (22-29) mmol/L Anion Gap 14 (12-20) BUN 18 H (9-16) mg/dL Creatinine 1.43 H (0.5-1.4) mg/dL Estim Creat Clear Calc 136.8 Estimated GFR 55 Random Glucose 109 (60-115) mg/dL Lactic Acid 1.6 (0.5-2.0) mmol/L Calcium 10.1 (8.4-10.2) mg/dL Total Bilirubin 0.5 (0.0-1.0) mg/dL AST 45 H (5-37) U/L ALT 36 (0-40) U/L Alkaline Phosphatase 92 (39-117) U/L C-Reactive Protein 1.25 H (< or = 0.50) mg/dL Total Protein 8.6 H (6.5-8.0) g/dL Albumin 4.1 (3.5-5.0) g/dL Influenza Type A (PCR) NEGATIVE (Negative) Influenza Type B (PCR) NEGATIVE (Negative) RSV RNA Qual (PCR) NEGATIVE (Negative) SARS-CoV-2 RNA (RT-PCR) NEGATIVE (Negative) Independent Interpretation I performed an independent interpretation of an: CT Scan Interpretation: CT notable for right maxillary opacification without abscess. Radiology Impression Discussion of test interpretation with radiology: I have reviewed the radiologist's reading. Radiologist Impression: Findings: No acute fractures. Nonacute fracture of left orbital medial wall. Temporomandibular joints are intact with no dislocation. Right maxillary sinus nearly completely opacified. Small mucous retention cyst/polyp in left maxillary sinus. The maxilla is edentulous with severe atrophy of the alveolar ridge. Remaining mandibular teeth demonstrate lucencies in the crowns consistent with caries. No mandibular periapical abscess. No soft tissue abscess. No adenopathy. No focal inflammatory stranding. Orbital structures are intact. Soft tissues in the nasopharynx and oropharynx and oral cavity are symmetric. Parotid glands and submandibular glands are unremarkable. IMPRESSION: 1. No evidence of an abscess. 2. Opacified right maxillary sinus. Small cyst/polyp left maxillary sinus. 3. Caries of remaining mandibular teeth. Maxilla is edentulous. External Record Review External record reviewed: Inpatient record, Office record and Outpatient record Discharge Plan Discharge Clinical Impression: Chronic sinus infection Patient Disposition: Home, Self-Care Instructions: Rhinosinusitis (DC) Additional Instructions: You were evaluated in the emergency department today for your sinus symptoms. Your CT scan did not show evidence of an abscess. Your labs were reassuring. We recommend that you complete the full course of clindamycin previously prescribed to you. Follow-up with ENT within the next 2 days. Return to the emergency department if you develop fever, facial swelling, difficulty breathing or swallowing, or any other new or concerning symptoms. Prescriptions: No Action quetiapine [Seroquel] 50 mg tablet 50 mg PO Q6H PRN (Reason: severe anxiety/agitation) lamotrigine 25 mg Tablet 325 mg PO BEDTIME 30 Days Qty: 390 0RF metformin 500 mg Tablet 500 mg PO BIDWM 30 Days Qty: 60 0RF lorazepam 1 mg Tablet 1 mg PO BID PRN (Reason: Anxiety) 14 Days Qty: 28 0RF cyclobenzaprine 10 mg Tablet 10 mg PO TID PRN (Reason: Muscle Spasm) 14 Days Qty: 42 0RF quetiapine [Seroquel] 300 mg Tablet 400 mg PO BEDTIME 30 Days Qty: 40 0RF dextroamphetamine-amphetamine 10 mg Tablet 10 mg PO DAILY@1500 14 Days Qty: 14 0RF Rx Instructions: Partial Fill upon patient request. gabapentin 400 mg Capsule 800 mg PO TID 30 Days Qty: 180 0RF omeprazole 40 mg Capsule,Delayed Release(Dr/Ec) 40 mg PO BID@0630,1630 30 Days Qty: 60 0RF prazosin 5 mg Capsule 10 mg PO BEDTIME 30 Days Qty: 60 0RF clonidine HCl 0.2 mg Tablet 0.2 mg PO BID PRN (Reason: anxiety) 30 Days Qty: 60 0RF Protocol: Hold for SBP< HOLD for SBP < : 90 dextroamphetamine-amphetamine [Adderall XR] 10 mg Capsule,Extended Release 24hr 20 mg PO DAILY 14 Days Qty: 28 0RF Rx Instructions: Partial Fill upon patient request. bupropion HCl 300 mg Tablet Extended Release 24 Hr 300 mg PO DAILY 300 Days Qty: 300 0RF buprenorphine-naloxone 8-2 mg Film 1 film BUCCAL TID 7 Days Qty: 21 0RF torsemide 20 mg tablet 80 mg PO BID 30 Days Qty: 240 0RF Protocol: Hold for SBP< HOLD for SBP < : 90 melatonin 3 mg tablet 9 mg PO BEDTIME 30 Days Qty: 90 0RF naloxone [Narcan] 4 mg/actuation spray,non-aerosol 4 mg intranasal Q2M PRN (Reason: opioid overdose) 1 Days Qty: 2 0RF Rx Instructions: spray 1 dose into ONE nostril; alternate nostrils w each dose until help arrives ammonium lactate 12 % Lotion 1 appl topical BID Qty: 0 0RF Protocol: Apply to: Apply to: ble albuterol sulfate [Ventolin HFA] 90 mcg/actuation Hfa Aerosol Inhaler 2 puff inhalation RQ4H PRN (Reason: Shortness Of Breath) Qty: 0 0RF Stand Alone Forms: Work/School Release Print Language: Persian
[2025-01-01 15:03] LABS: MANUAL DIFF FLAG NO
[2025-01-01 15:06] LABS: Basophils Absolute Auto 0.1 X10*3/uL (0.0-0.2); Basophils Percent Auto 0.9 % (0-2); Eosinophils Absolute Auto 0.2 X10*3/uL (0.0-0.4); Eosinophils Percent Auto 2.7 % (0-4); Hematocrit 39.2 % (42.0-52.0); Hemoglobin 13.1 g/dl (14.0-18.0); Imm Gran Abs Auto 0.03 X10*3/uL (0.00-0.03); Imm Gran Pct Auto 0.4 % (0.0-0.4); Lymphocytes Percent Auto 36.6 % (20-40); Mean Corpuscular HGB Conc 33.4 g/dl (31.0-36.0); Mean Corpuscular Volume 83.8 fL (80.0-98.0); Mean Platelet Volume 10.3 fL (9.4-12.4); Monocytes Absolute Auto 0.6 X10*3/uL (0.1-1.2); Monocytes Percent Auto 7.8 % (2-11); Neutrophils Absolute Auto 4.3 x10*3/uL (2.0-8.3); Neutrophils Percent Auto 51.6 % (45-73); Platelet Count 191 X10*3/uL (160-400); Red Blood Count 4.68 X10*6/uL (4.60-5.80); Red Cell Distribution Width 13.6 % (11.0-16.0); White Blood Count 8.2 X10*3/uL (4.8-10.8)
[2025-01-01 15:19] LABS: Alanine Aminotransferase 36 U/L (0-40); Albumin Level 4.1 g/dL (3.5-5.0); Alkaline Phosphatase 92 U/L (39-117); Anion Gap 14 (12-20); Aspartate Amino Transferase 45 U/L (5-37); Bilirubin Total 0.5 mg/dL (0.0-1.0); Blood Urea Nitrogen 18 mg/dL (9-16); C Reactive Protein 1.25 mg/dL (< or = 0.50); Calcium 10.1 mg/dL (8.4-10.2); Carbon Dioxide 30 mmol/L (22-29); Chloride 97 mmol/L (96-108); Creatinine Clr Calc Pharmacy 136.8; Estimated Glomerular Filt Rate 55; Glucose Random 109 mg/dL (60-115); Potassium 3.3 mmol/L (3.3-5.1); Sodium 138 mmol/L (135-145); Total Protein 8.6 g/dL (6.5-8.0)
[2025-01-01 15:20] LABS: Lactic Acid 1.6 mmol/L (0.5-2.0)
--- NOTE | 2025-01-01 15:36 | PC.NURSE ---
Patient is a difficult stick. 2nd set of cultures drawn at 15:22. 20g IV access established by Cheyanne Weaver RN to left hand/knuckle. Patent, functional.
[2025-01-01] MEDS: iohexoL 350 MG/ML 100 ML INFUS..BTL 85 ML IV (15:37)
[2025-01-01 15:46] LABS: Erythrocyte Sedimentation Rate 43 MM/HR (0-15)
[2025-01-01 15:56] LABS: Influenza A PCR NEGATIVE (Negative); Influenza B PCR NEGATIVE (Negative); Resp Syncy Virus RNA Qual PCR NEGATIVE (Negative); SARS COV2 PCR INHOUSE NEGATIVE (Negative)
--- NOTE | 2025-01-01 18:54 | PC.NURSE ---
[facility] unable to provide transportation back to facility due to low staffing. Spoke with Stephany Estrada from CARE team who advised reaching out to ED Coordinator or nursing natural gas plant supervisor. Nursing natural gas plant supervisor (Sandra Leon) contacted via phone, attempting to assist with Lyft, chair van, or other transportation service. Awaiting call back.
--- NOTE | 2025-01-01 19:31 | PC.NURSE ---
[facility] arranged by nursing clay preparation supervisor (Hernandez Leon). Brought to [address] [place] [address] via [facility].
[2025-01-01 19:32] VITALS: BP 143/73; PULSE 98; RESP 20; TEMP 37; O2SAT 97
== END 2025-01-01 19:32 | disposition home or self-care (01) ==
PROVIDERS: Registered Nurse Emergency; Emergency Provider Emergency Medicine
DX: J32.9 Chronic sinusitis, unspecified (principal); Z03.818 Encounter for observation for suspected exposure to other biological agents ruled out; Z79.899 Other long term (current) drug therapy
CPT/HCPCS: 0241U; 36415; 70487; 80053; 83605; 85025; 85652; 86140; 87040; 99283; 99284; Q9967

== ENCOUNTER → 2025-01-01 14:13 | Outpatient (BNV) | payer OTHER, SELFPAY | PROVIDERS: Emergency Provider Emergency Medicine; Visit Provider Specialist | DX: J33.8 Other polyp of sinus (principal); K08.20 Unspecified atrophy of edentulous alveolar ridge; K03.9 Disease of hard tissues of teeth, unspecified | CPT/HCPCS: 70487 ==